=== PATIENT | female | born 1955 | race Caucasian/White ===

== ENCOUNTER 2016-06-14 14:18 | Observation (INO) | payer BC ==
[2016-06-14] MEDS ORDERED: NITROGLYCERIN OINT 1 INCH/GM PACKET TOPICAL STA (15:25)
[2016-06-14] MEDS ORDERED: ASPIRIN 81 MG CHEW PO STA (15:25)
[2016-06-14] MEDS ORDERED: LORazepam 2 MG/ML SYRINGE IV STA (15:27)
--- NOTE | 2016-06-14 15:27 | ED ---
General Adult HPI - General Chief complaint: Chest Pain Stated complaint: abnormal ekg-sent by Time Seen by Provider: 06/14/16 15:00 Source: patient, RN notes reviewed Mode of arrival: wheelchair Limitations: no limitations - History of Present Illness Initial comments: This is a 60-year-old female who has a past medical history significant for high cholesterol anxiety and depression. Patient states for the last 3-4 weeks she's been having intermittent chest pain which feels like a pressure in her chest she states it comes and goes sometimes lasting upwards of 5 or so minutes. Patient states sometimes associated with shortness of breath symptoms is associated with diaphoresis. And this morning she was associating it with nausea. Patient states currently she is chest pain-free. Patient states it is continuing to occur. Patient denies any recent fever chills or cough. Patient denies any smoking history. Patient denies any abdominal pain. Patient denies any vomiting or diarrhea per patient denies any headache patient denies numbness weakness. Patient denies any lightheadedness dizziness or near- syncopal episode. - Related Data Home Medications Medication Instructions Recorded Confirmed Cholecalciferol [Vitamin D3] 2,000 unit PO DAILY 05/19/14 06/14/16 Fish Oil/Dha/Epa [Fish Oil 1,200 1 cap PO HS 05/19/14 06/14/16 mg Fish Oil] L.acid/L.casei/B.bif/B.raphael/Fos 1 cap PO HS 05/19/14 06/14/16 [Probiotic Blend Capsule] Multivitamins, Thera [Multivitamin] 1 tab PO DAILY 05/19/14 06/14/16 Simvastatin [Zocor] 20 mg PO HS 05/19/14 06/14/16 Ubidecarenone [Co Q-10] 100 mg PO DAILY 05/19/14 06/14/16 Dicyclomine [Bentyl] 10 mg PO BID 10/20/14 06/14/16 Omeprazole [PriLOSEC] 20 mg PO QAM 10/20/14 06/14/16 Levothyroxine Sodium [Synthroid] 75 mcg PO DAILY 12/21/15 06/14/16 Vit A,C & E/Lutein/Minerals 1 tab PO HS 12/21/15 06/14/16 [Ocuvite with Lutein Tablet] Glucosamine HCl/Chondr Rhodes A Na 1 tab PO HS 06/14/16 06/14/16 [Osteo Bi-Flex Caplet] Turmeric Root Extract [Turmeric] 500 mg PO HS 06/14/16 06/14/16 buPROPion XL [Wellbutrin Xl] 150 mg PO DAILY 06/14/16 06/14/16 busPIRone HCl [Buspar] 30 mg PO DAILY 06/14/16 06/14/16 Allergies Allergy/AdvReac Type Severity Reaction Status Date / Time ketamine AdvReac Hallucinations Verified 06/14/16 16:17 & Muscle Spasms Review of Systems ROS Statement: Those systems with pertinent positive or pertinent negative responses have been documented in the HPI. ROS Other: All systems not noted in ROS Statement are negative. Past Medical History Past Medical History: GERD/Reflux, Hyperlipidemia, Osteoarthritis (OA), Renal Disease, Skin Disorder, Thyroid Disorder Additional Past Medical History / Comment(s): hx optical migraines, vertigo, hx kidney stones, eczema, dermatitis, IBS, hiatal hernia History of Any Multi-Drug Resistant Organisms: None Reported Past Surgical History: Adenoidectomy, Section, Joint Replacement, Tonsillectomy, Tubal Ligation Additional Past Surgical History / Comment(s): left hip replacement, C-sections x3, D & C Past Anesthesia/Blood Transfusion Reactions: Previous Problems w/ Anesthesia, Motion Sickness Additional Past Anesthesia/Blood Transfusion Reaction / Comment(s): Ketamine caused involuntary muscle movements and hallucinations. Past Psychological History: Anxiety, Depression Additional Psychological History / Comment(s): Pt lives alone in her home. She is independent. She is employed. She drives a car. Smoking Status: Never smoker Past Alcohol Use History: None Reported Past Drug Use History: None Reported - Past Family History Father Family Medical History: Cancer, Hypertension Additional Family Medical History / Comment(s): Father of lung cancer at age 69 yrs. Mother Family Medical History: Hypertension Additional Family Medical History / Comment(s): Mother of complication from myasthenia gravis. She also had diverticulits. General Exam - General Exam Comments Initial Comments: GENERAL: Patient is well-developed and well-nourished. Patient is nontoxic and well- hydrated and is in mild distress. ENT: Neck is soft and supple. No significant lymphadenopathy is noted. Oropharynx is clear. Moist mucous membranes. Neck has full range of motion without eliciting any pain. EYES: The sclera were anicteric and conjunctiva were pink and moist. Extraocular movements were intact and pupils were equal round and reactive to light. Eyelids were unremarkable. PULMONARY: Unlabored respirations. Good breath sounds bilaterally. No audible rales rhonchi or wheezing was noted. CARDIOVASCULAR: There is a regular rate and rhythm without any murmurs gallops or rubs. ABDOMEN: Soft and nontender with normal bowel sounds. No palpable organomegaly was noted. There is no palpable pulsatile mass. SKIN: Skin is clear with no lesions or rashes and otherwise unremarkable. NEUROLOGIC: Patient is alert and oriented x3. Cranial nerves II through XII are grossly intact. Motor and sensory are also intact. Normal speech, volume and content. Symmetrical smile. MUSCULOSKELETAL: Normal extremities with adequate strength and full range of motion. No lower extremity swelling or edema. No calf tenderness. LYMPHATICS: No significant lymphadenopathy is noted PSYCHIATRIC: Normal psychiatric evaluation. Normal interpersonal interactions appears functionally intact in deals appropriately with others. No signs of depression. Patient is mildly anxious Limitations: no limitations Course Vital Signs 06/14/16 06/14/16 14:53 16:04 Temperature 98.1 F Pulse Rate 79 77 Respiratory 18 18 Rate Blood Pressure 118/69 106/65 O2 Sat by Pulse 98 99 Oximetry Medical Decision Making - Medical Decision Making EKG shows a normal sinus rhythm at 74 bpm DE interval 164 QRS is 84 QT interval 42 QT C is 446 patient's EKG shows no ST segment elevation or depression or T- wave abdomen is noted. Chest x-ray shows no acute abnormality. Patient was having intermittent pain for a few weeks with a variety of associated symptoms therefore started the patient on heparin and admitted the patient I wrote admitting orders consult cardiology continue the heparin aspirin and nitro on the floor. - Lab Data Result diagrams: 06/14/16 15:15 06/14/16 15:15 Lab Results 06/14/16 06/14/16 06/14/16 Range/Units 15:15 15:15 15:15 WBC 6.7 (3.8-10.6) k/uL RBC 4.76 (3.80-5.40) m/uL Hgb 15.3 (11.4-16.0) gm/dL Hct 46.2 H (34.0-46.0) % MCV 97.0 (80.0-100.0) fL MCH 32.1 (25.0-35.0) pg MCHC 33.1 (31.0-37.0) g/dL RDW 12.3 (11.5-15.5) % Plt Count 342 (150-450) k/uL Neutrophils % 65 % Lymphocytes % 24 % Monocytes % 8 % Eosinophils % 1 % Basophils % 1 % Neutrophils # 4.4 (1.3-7.7) k/uL Lymphocytes # 1.6 (1.0-4.8) k/uL Monocytes # 0.5 (0-1.0) k/uL Eosinophils # 0.1 (0-0.7) k/uL Basophils # 0.1 (0-0.2) k/uL PT (9.0-12.0) sec INR (<1.1) APTT (22.0-30.0) sec Sodium 143 (137-145) mmol/L Potassium 3.6 (3.5-5.1) mmol/L Chloride 105 (98-107) mmol/L Carbon Dioxide 27 (22-30) mmol/L Anion Gap 11 mmol/L BUN 8 (7-17) mg/dL Creatinine 0.83 (0.52-1.04) mg/dL Est GFR (MDRD) Af Amer >60 (>60 ml/min/1.73 sqM) Est GFR (MDRD) Non-Af >60 (>60 ml/min/1.73 sqM) Glucose 89 (74-99) mg/dL Calcium 9.6 (8.4-10.2) mg/dL Magnesium 2.1 (1.6-2.3) mg/dL Total Bilirubin 0.6 (0.2-1.3) mg/dL AST 26 (14-36) U/L ALT 28 (9-52) U/L Alkaline Phosphatase 52 (38-126) U/L Total Creatine Kinase 84 (30-135) U/L CK-MB (CK-2) 1.0 (0.0-2.4) ng/mL CK-MB (CK-2) Rel Index 1.2 Troponin I <0.012 (0.000-0.034) ng/mL Total Protein 7.2 (6.3-8.2) g/dL Albumin 4.2 (3.5-5.0) g/dL 06/14/16 Range/Units 15:15 WBC (3.8-10.6) k/uL RBC (3.80-5.40) m/uL Hgb (11.4-16.0) gm/dL Hct (34.0-46.0) % MCV (80.0-100.0) fL MCH (25.0-35.0) pg MCHC (31.0-37.0) g/dL RDW (11.5-15.5) % Plt Count (150-450) k/uL Neutrophils % % Lymphocytes % % Monocytes % % Eosinophils % % Basophils % % Neutrophils # (1.3-7.7) k/uL Lymphocytes # (1.0-4.8) k/uL Monocytes # (0-1.0) k/uL Eosinophils # (0-0.7) k/uL Basophils # (0-0.2) k/uL PT 11.0 (9.0-12.0) sec INR 1.1 (<1.1) APTT 25.1 (22.0-30.0) sec Sodium (137-145) mmol/L Potassium (3.5-5.1) mmol/L Chloride (98-107) mmol/L Carbon Dioxide (22-30) mmol/L Anion Gap mmol/L BUN (7-17) mg/dL Creatinine (0.52-1.04) mg/dL Est GFR (MDRD) Af Amer (>60 ml/min/1.73 sqM) Est GFR (MDRD) Non-Af (>60 ml/min/1.73 sqM) Glucose (74-99) mg/dL Calcium (8.4-10.2) mg/dL Magnesium (1.6-2.3) mg/dL Total Bilirubin (0.2-1.3) mg/dL AST (14-36) U/L ALT (9-52) U/L Alkaline Phosphatase (38-126) U/L Total Creatine Kinase (30-135) U/L CK-MB (CK-2) (0.0-2.4) ng/mL CK-MB (CK-2) Rel Index Troponin I (0.000-0.034) ng/mL Total Protein (6.3-8.2) g/dL Albumin (3.5-5.0) g/dL Critical Care Time Critical Care Time: Yes Total Critical Care Time: 35 Disposition Clinical Impression: Unstable angina Disposition: ADMITTED IP TO THIS [facility] Time of Disposition: 16:46
[2016-06-14 15:47] LABS: Basophils # (A) 0.1 k/uL (0-0.2); Basophils % (A) 1 %; CH 32.5; CHCM 33.7; Eosinophils # (A) 0.1 k/uL (0-0.7); Eosinophils % (A) 1 %; HCT 46.2 % (34.0-46.0); HDW 2.13; HGB 15.3 gm/dL (11.4-16.0); Luc # (Auto) 0.17; Luc % (Auto) 3; Lymphocytes # (A) 1.6 k/uL (1.0-4.8); Lymphocytes % (A) 24 %; MCH 32.1 pg (25.0-35.0); MCHC 33.1 g/dL (31.0-37.0); Mean Platelet Volume 6.9; Monocytes # (A) 0.5 k/uL (0-1.0); Monocytes % (A) 8 %; Neutrophils # (A) 4.4 k/uL (1.3-7.7); Neutrophils % (A) 65 %; RBC 4.76 m/uL (3.80-5.40); RDW 12.3 % (11.5-15.5); WBC 6.7 k/uL (3.8-10.6); WBC (Perox) 6.47
[2016-06-14 15:57] LABS: ALT 28 U/L (9-52); AST 26 U/L (14-36); Alkaline Phosphatase 52 U/L (38-126); Anion Gap 11 mmol/L; Blood Urea Nitrogen 8 mg/dL (7-17); Calcium 9.6 mg/dL (8.4-10.2); Carbon Dioxide 27 mmol/L (22-30); Chloride 105 mmol/L (98-107); Glucose 89 mg/dL (74-99); INR 1.1 (<1.1); Magnesium 2.1 mg/dL (1.6-2.3); Non-African American GFR(MDRD) >60 (>60 ml/min/1.73 sqM); Partial Thromboplastin Time 25.1 sec (22.0-30.0); Potassium 3.6 mmol/L (3.5-5.1); Sodium 143 mmol/L (137-145); Total Bilirubin 0.6 mg/dL (0.2-1.3); Total Protein 7.2 g/dL (6.3-8.2)
--- NOTE | 2016-06-14 16:00 | XR ---
EXAMINATION TYPE: XR chest 2V DATE OF EXAM: 06/14/2016 3:56 PM COMPARISON: May 19, 2014 HISTORY: Shortness of breath TECHNIQUE: Frontal and lateral views of the chest are obtained. FINDINGS: Scattered senescent parenchymal changes noted. Hyperinflation compatible with COPD. No evidence for infiltrate. No evidence for atelectasis. Heart size is stable. Mediastinal structures are stable and grossly unremarkable. No evidence for hilar prominence. Degenerative changes dorsal spine. IMPRESSION: 1. No evidence for acute pulmonary disease.
[2016-06-14 16:08] LABS: Creatine Kinase 84 U/L (30-135)
[2016-06-14 16:21] LABS: Troponin I <0.012 ng/mL (0.000-0.034)
[2016-06-14] MEDS ORDERED: NITROGLYCERIN SL TABS 0.4 MG TAB SUBLINGUAL PRN (16:47)
[2016-06-14] MEDS ORDERED: NON-FORMULARY DRUG (Fish Oil/Dha/Epa [Fish Oil 1,200 Mg Fish Oil] 1 CAP) PO SCH (21:00)
[2016-06-14] MEDS ORDERED: VIT A,C & E-LUTEIN-MINERALS 1 EACH TAB PO SCH (21:00)
[2016-06-14] MEDS ORDERED: NON-FORMULARY DRUG (Turmeric Root Extract [Turmeric] 500 MG) PO SCH (21:00)
[2016-06-14] MEDS ORDERED: ATORVASTATIN 10 MG TAB PO SCH (21:00)
[2016-06-14] MEDS ORDERED: LACTOBACILLUS ACIDOPH & BULGAR 1 EACH PACKET PO SCH (21:00)
[2016-06-14] MEDS ORDERED: NON-FORMULARY DRUG (Glucosamine Hcl/Chondr Su A Na [Osteo Bi-Flex Caplet] 1 TAB) PO SCH (21:00)
[2016-06-14] MEDS: NITROGLYCERIN OINT 1 INCH/GM PACKET TOPICAL SCH (21:21)
[2016-06-14] MEDS: DICYCLOMINE 10 MG CAP PO SCH (21:25)
[2016-06-14 21:55] LABS: Creatine Kinase 75 U/L (30-135)
[2016-06-14 22:08] LABS: Creatine Kinase MB 0.8 ng/mL (0.0-2.4); Troponin I <0.012 ng/mL (0.000-0.034)
[2016-06-15] MEDS: NITROGLYCERIN OINT 1 INCH/GM PACKET TOPICAL SCH ×2 (00:04→06:26)
[2016-06-15 03:33] LABS: Cholesterol 130 mg/dL (<200); HDL Cholesterol 69 mg/dL (40-60); Triglycerides 46 mg/dL (<150)
[2016-06-15 03:37] LABS: Creatine Kinase 58 U/L (30-135)
[2016-06-15 03:51] LABS: Creatine Kinase MB 0.6 ng/mL (0.0-2.4); Troponin I <0.012 ng/mL (0.000-0.034)
[2016-06-15] MEDS: ACETAMINOPHEN TAB 325 MG TAB PO PRN ×2 (04:22→09:20)
[2016-06-15] MEDS ORDERED: LEVOTHYROXINE 75 MCG TAB PO SCH (06:00)
[2016-06-15] MEDS ORDERED: PANTOPRAZOLE 40 MG TABLET PO SCH (07:30)
--- NOTE | 2016-06-15 08:54 | CONS ---
DATE OF CONSULTATION: Mrs. Daniels is a 60-year-old female with known history of hyperlipidemia, who presented with symptoms of chest discomfort. She has been having the discomfort on and off for a few weeks, not related to physical activity. At times lasting for a few seconds. She feels mildly dyspneic. She has no arrhythmia. No dizziness. No syncope. No PND, orthopnea, or peripheral edema. She has no prior documented history of ischemic heart disease. She was in the hospital in May of 2014. At that time, had a myocardial perfusion imaging that revealed no evidence of inducible ischemia. Her coronary risk factors are negative for hypertension, diabetes or smoking. She has hyperlipidemia. Her medications at home include Buspirone, Wellbutrin, Coenzyme Q10, simvastatin 20 mg daily, Prilosec, Synthroid, Osteo Bi-Flex, fish oil, Ventolin, vitamin D. REVIEW OF SYSTEMS: RESPIRATORY SYSTEM: She has no recent wheezing. No cough. No history of documented obstructive lung disease. GI SYSTEM: No recent GI bleeding. No peptic ulcer disease. SYSTEM: No dysuria or hematuria. NERVOUS SYSTEM: No stroke or seizure. PHYSICAL EXAMINATION: A 60-year-old female, alert, oriented, in no apparent distress. Blood pressure 105/60 with a heart rate in the 70s. HEAD: Normocephalic. EYES: Sclerae nonicteric. NECK: Good upstroke. No bruit. No jugular venous distention. LUNGS: Clear to auscultation. HEART: Regular rate and rhythm. S1, S2, no S3, no S4, no murmur or rub. ABDOMEN: Soft, nontender, positive bowel sounds. No organomegaly. EXTREMITIES: No edema. Intact distal pulses. LAB DATA: Troponin less than 0.012. Cholesterol 130, LDL of 52, BUN and creatinine 8 and 0.83 and hemoglobin 15.3. EKG revealed sinus mechanism, normal axis and intervals. Normal electrocardiogram. Chest x-ray shows no evidence of infiltrate. IMPRESSION: 1. Chest discomfort, has atypical feature for ischemic heart disease, probably noncardiac in etiology. 2. History of hyperlipidemia. RECOMMENDATION: I would recommend to proceed with a stress echocardiogram. If there is no evidence of inducible ischemia, then no further cardiac work-up will be needed. I have discussed those findings with the patient. Thank you for this consult. Will follow with you.
[2016-06-15] MEDS ORDERED: busPIRone HCl 10 MG TAB PO SCH (09:00)
[2016-06-15] MEDS ORDERED: NON-FORMULARY DRUG (Ubidecarenone [Co Q-10] 100 MG) PO SCH (09:00)
[2016-06-15] MEDS ORDERED: ASPIRIN 325 MG TAB PO SCH (09:00)
[2016-06-15] MEDS ORDERED: buPROPion XL 150 MG TAB.ER.24H PO SCH (09:00)
[2016-06-15] MEDS: DICYCLOMINE 10 MG CAP PO SCH (09:19)
--- NOTE | 2016-06-15 11:39 | ECHOF ---
Referral Reason: MEASUREMENTS -------- HEIGHT: 172.7 cm WEIGHT: 86.2 kg BP: 98/58 RVIDd: 2.9 cm (< 3.3) IVSd: 0.9 cm (0.6 - 1.1) LVIDd: 4.2 cm (3.9 - 5.3) LVPWd: 0.8 cm (0.6 - 1.1) IVSs: 1.4 cm LVIDs: 3.0 cm LVPWs: 1.5 cm LA Diam: 3.1 cm (2.7 - 3.8) LAESV Index (A-L): 23.03 ml/m Ao Diam: 2.8 cm (2.0 - 3.7) AV Cusp: 2.2 cm (1.5 - 2.6) MV EXCURSION: 15.488 mm (> 18.000) MV EF SLOPE: 95 mm/s (70 - 150) EPSS: 0.4 cm MV E Ga: 0.72 m/s MV DecT: 225 ms MV A Ga: 0.71 m/s MV E/A Ratio: 1.02 RAP: 5.00 mmHg RVSP: 21.56 mmHg FINDINGS -------- Sinus rhythm. This was a technically good study. The left ventricular size is normal. Left ventricular wall thickness is normal. Overall left ventricular systolic function is normal with, an EF between 60 - 65 %. The right ventricle is normal in size and function. Normal LA size by volume 22+/-6 ml/m2. The right atrium is normal in size. The aortic valve is trileaflet and appears structurally normal. Trace amount of aortic regurgitation. Normal appearing mitral valve. Mild tricuspid regurgitation present. Right ventricular systolic pressure is normal at < 35 mmHg. Trace/mild (physiologic) pulmonic regurgitation. The aortic root size is normal. Normal inferior vena cava with normal inspiratory collapse consistent with estimated right atrial pressure of 5 mmHg. There is no pericardial effusion. CONCLUSIONS -------- 1. Sinus rhythm. 2. Trace amount of aortic regurgitation. 3. Normal appearing mitral valve. 4. Mild tricuspid regurgitation present. 5. Right ventricular systolic pressure is normal at < 35 mmHg. 6. Trace/mild (physiologic) pulmonic regurgitation. 7. The aortic root size is normal. 8. Normal inferior vena cava with normal inspiratory collapse consistent with estimated right atrial pressure of 5 mmHg. 9. There is no pericardial effusion. 10. This was a technically good study. 11. The left ventricular size is normal. 12. Left ventricular wall thickness is normal. 13. Overall left ventricular systolic function is normal with, an EF between 60 - 65 %. 14. The right ventricle is normal in size and function. 15. Normal LA size by volume 22+/-6 ml/m2. 16. The right atrium is normal in size. 17. The aortic valve is trileaflet and appears structurally normal. SCHOOL CLERK: Shwetha Hill RDCS
--- NOTE | 2016-06-15 11:56 | P.HPIM ---
History of Present Illness H&P Date: 06/15/16 Chief Complaint: Chest pain This is a 60-year-old female with a known history of anxiety, hypothyroidism, hyperlipidemia and GERD. She presents to the emergency room with complaints of chest pain. Patient reports that she has been having intermittent chest pain over the last 3 or 4 weeks. Pain lasts for about 5 minutes. It's in the center of her chest. She is also having a whooshing sensation in her ear on the left side when she has the pain. She denies any nausea or vomiting. Denies any diaphoresis. Denies any shortness of breath. Denies any cough, fever, chills or sweats. She's been having regular bowel movements. Denies any difficulty urinating. Last stress test was about 3 years ago and was negative. She had a previous workup for chest pain recently and was told it was likely her anxiety. She follows with her PCP as well as a psychiatrist. Her anxiety and depression medications were recently adjusted and Letitia. EKG shows normal sinus rhythm. Troponins are negative 3. Chest x-rays negative. Patient has been admitted to the observation unit. Cardiology has been consulted and they've ordered a stress echo. Review of Systems Please refer to HPI otherwise unremarkable Past Medical History Past Medical History: GERD/Reflux, Hyperlipidemia, Osteoarthritis (OA), Renal Disease, Skin Disorder, Thyroid Disorder Additional Past Medical History / Comment(s): hx optical migraines, vertigo, hx kidney stones, eczema, dermatitis, IBS, hiatal hernia,when chhild ear infections burst ear drum (lt) LACTOSE INTOLERNANT History of Any Multi-Drug Resistant Organisms: None Reported Past Surgical History: Adenoidectomy, Section, Joint Replacement, Tonsillectomy, Tubal Ligation Additional Past Surgical History / Comment(s): left hip replacement, C-sections x3, D & C Past Anesthesia/Blood Transfusion Reactions: Previous Problems w/ Anesthesia, Motion Sickness Additional Past Anesthesia/Blood Transfusion Reaction / Comment(s): Ketamine caused involuntary muscle movements and hallucinations. Past Psychological History: Anxiety, Depression Additional Psychological History / Comment(s): Pt lives alone in apt, has 2 porch steps, 1 step into building and 8 steps up to apt. She is independent-no assitive devices used.. She is employed as a behavioral healkth clinician. She drives a car. hax of depression feels well maintained on her medications. Smoking Status: Never smoker Past Alcohol Use History: None Reported Past Drug Use History: None Reported - Past Family History Father Family Medical History: Cancer, Hypertension Additional Family Medical History / Comment(s): Father of lung cancer at age 69 yrs. Mother Family Medical History: Hypertension Additional Family Medical History / Comment(s): Mother of complication from myasthenia gravis. She also had diverticulits. Medications and Allergies Home Medications Medication Instructions Recorded Confirmed Type Cholecalciferol [Vitamin D3] 2,000 unit PO DAILY 05/19/14 06/14/16 History Fish Oil/Dha/Epa [Fish Oil 1,200 1 cap PO HS 05/19/14 06/14/16 History mg Fish Oil] L.acid/L.casei/B.bif/B.raphael/Fos 1 cap PO HS 05/19/14 06/14/16 History [Probiotic Blend Capsule] Multivitamins, Thera [Multivitamin] 1 tab PO DAILY 05/19/14 06/14/16 History Simvastatin [Zocor] 20 mg PO HS 05/19/14 06/14/16 History Ubidecarenone [Co Q-10] 100 mg PO DAILY 05/19/14 06/14/16 History Dicyclomine [Bentyl] 10 mg PO BID 10/20/14 06/14/16 History Omeprazole [PriLOSEC] 20 mg PO QAM 10/20/14 06/14/16 History Levothyroxine Sodium [Synthroid] 75 mcg PO DAILY 12/21/15 06/14/16 History Vit A,C & E/Lutein/Minerals 1 tab PO HS 12/21/15 06/14/16 History [Ocuvite with Lutein Tablet] Glucosamine HCl/Chondr Rhodes A Na 1 tab PO HS 06/14/16 06/14/16 History [Osteo Bi-Flex Caplet] Turmeric Root Extract [Turmeric] 500 mg PO HS 06/14/16 06/14/16 History buPROPion XL [Wellbutrin Xl] 150 mg PO DAILY 06/14/16 06/14/16 History busPIRone HCl [Buspar] 30 mg PO DAILY 06/14/16 06/14/16 History Allergies Allergy/AdvReac Type Severity Reaction Status Date / Time ketamine AdvReac Hallucinations Verified 06/14/16 16:17 & Muscle Spasms lactose AdvReac Unknown Verified 06/14/16 20:17 Physical Exam Vitals: Vital Signs Temp Pulse Pulse Pulse Resp BP BP 06/15/16 08:00 98.1 F 96 16 118/65 06/15/16 04:00 98 F 72 72 16 98/58 06/15/16 00:00 97.6 F 61 72 16 105/62 06/14/16 21:12 72 16 06/14/16 20:09 98.6 F 72 16 124/83 06/14/16 17:45 97.7 F 87 18 121/76 06/14/16 17:18 97.9 F 06/14/16 17:13 83 16 109/65 Pulse Ox 06/15/16 08:00 96 06/15/16 04:00 94 L 06/15/16 00:00 95 06/14/16 21:12 06/14/16 20:09 98 06/14/16 17:45 98 06/14/16 17:18 06/14/16 17:13 100 Intake and Output 06/14/16 06/15/16 06/15/16 22:59 06:59 14:59 Intake Total 250 200 Balance 250 200 Intake: Oral 250 200 Other: Voiding Method Toilet Toilet # Voids 2 3 Weight 86.3 kg Head normocephalic Neck supple Lungs clear to auscultation bilaterally no wheezing or crackles Heart regular rate and rhythm S1-S2, no rub or gallop Abdomen is soft nontender nondistended positive bowel sounds no hepatosplenomegaly Extremities no edema Neuro alert and orientated to 3 Results CBC & Chem 7: 06/14/16 15:15 06/14/16 15:15 Labs: Abnormal Lab Results - Last 24 Hours (Table) 06/15/16 Range/Units 02:53 HDL Cholesterol 69 H (40-60) mg/dL Thrombosis Risk Factor Assmnt - Choose All That Apply Any of the Below Risk Factors Present?: Yes Each Factor Represents 1 point: Age 41-60 years, Obesity (BMI >25) Other Risk Factors: No Other congenital or acquired thrombophilia - If yes, enter type in comment: No Thrombosis Risk Factor Assessment Total Risk Factor Score: 2 Thrombosis Risk Factor Assessment Level: Low Risk Assessment and Plan Plan: 1. Chest pain: SD ruled out. Troponins are negative 3 sets. EKG showing normal sinus rhythm. Chest x-rays negative. Patient is followed by cardiology and stress echo was ordered. Awaiting results. Echo shows an EF of 60-65%. Trace amount of aortic regurg, mild tricuspid regurgitation 2. Hyperlipidemia continue Lipitor 3. Hypothyroidism continue Synthroid 4. Generalized anxiety disorder and depression continue the Wellbutrin GI prophylaxis Protonix and DVT prophylaxis subcu heparin Time with Patient: Greater than 30 (Greater than 50% of the total time spent in counseling and coordination of care.I performed an examination of the patient and discussed their management with the physician Costumer Assistant. I have reviewed the Physician Costumer Assistant's notes and agree with the documented findings and plan of care)
[2016-06-15] MEDS ORDERED: CHOLECALCIFEROL 1,000 UNIT TAB PO SCH (12:00)
[2016-06-15] MEDS ORDERED: MULTIVITAMINS, THERA 1 EACH TAB PO SCH (12:00)
[2016-06-15 12:33] VITALS: BP 105/59; PULSE 83; RESP 18; TEMP 97.7
--- NOTE | 2016-06-15 12:47 | ECHOS ---
DATE OF SERVICE: 06/15/2016 AGE: 60Y SEX: F HT: 68" WT: 190 lbs. Protocol Agustín: X Others: Stress Echo Stage: III Dur. of Exercise: 6:30 *Heart Rate Blood Pressure *Rest: 79 Rest: 142/68 * *Max. Achieved: 145 Maximum BP: 140/65 85% PMHR: 136 100% PMHR: 160 *METS: 7.6 INDICATIONS: Chest pain. MEDICATIONS: Patient was exercised for a total period of 6 minutes and 30 seconds. Peak heart rate of 145 was achieved. Maximum blood pressure 140/65 mmHg is noted. Resting EKG shows normal sinus rhythm with normal RI interval and QRS duration and normal ST-T waves. No ST segment depression suggestive of ischemia is noted. The baseline echocardiographic images reveals a normal left ventricular chamber size with normal left ventricular systolic function. In the immediate postexercise period, normal increase in the wall thickness and contractility is noted. FINAL IMPRESSION: This stress echocardiographic study is negative for stress-induced ischemia. EKG portion of the stress test is not suggestive of ischemia. Patient's exercise tolerance is average.
--- NOTE | 2016-06-15 13:56 | P.DS ---
Providers Date of admission: 06/14/16 16:47 Expected date of discharge: 06/15/16 Attending physician: Ofelia Fountain Consults: Dr. Hartman Primary care physician: Ai Sabillon [facility] Course: Discharge diagnosis 1. Chest pain: MN ruled out. Troponins are negative 3 sets. EKG showing normal sinus rhythm. Chest x-rays negative. Patient is followed by cardiology and stress echo was ordered. Awaiting results. Echo shows an EF of 60-65%. Trace amount of aortic regurg, mild tricuspid regurgitation. Stress echo results were negative for any stress-induced ischemia 2. Hyperlipidemia continue Lipitor 3. Hypothyroidism continue Synthroid 4. Generalized anxiety disorder and depression continue the [facility] course This is a 60-year-old female with a known history of anxiety, hypothyroidism, hyperlipidemia and GERD. She presents to the emergency room with complaints of chest pain. Patient reports that she has been having intermittent chest pain over the last 3 or 4 weeks. Pain lasts for about 5 minutes. It's in the center of her chest. She is also having a whooshing sensation in her ear on the left side when she has the pain. She denies any nausea or vomiting. Denies any diaphoresis. Denies any shortness of breath. Denies any cough, fever, chills or sweats. She's been having regular bowel movements. Denies any difficulty urinating. Last stress test was about 3 years ago and was negative. She had a previous workup for chest pain recently and was told it was likely her anxiety. She follows with her PCP as well as a psychiatrist. Her anxiety and depression medications were recently adjusted and April. EKG shows normal sinus rhythm. Troponins are negative 3. Chest x-rays negative. Patient has been admitted to the observation unit. Patient seen evaluated by cardiology. Stress echo completed. Study was negative for any stress-induced ischemia. EKG portion of stress test is not suggestive of ischemia. Patient's symptoms have shown improvement. She is medically stable for discharge. And she has been cleared by cardiology for discharge. We'll have her follow-up with her PCP in 1 week. Patient Condition at Discharge: Stable Plan - Discharge Summary Discharge Medication List Cholecalciferol [Vitamin D3] 2,000 unit PO DAILY 05/19/14 [History] Fish Oil/Dha/Epa [Fish Oil 1,200 mg Fish Oil] 1 cap PO HS 05/19/14 [History] L.acid/L.casei/B.bif/B.raphael/Fos [Probiotic Blend Capsule] 1 cap PO HS 05/19/14 [ History] Multivitamins, Thera [Multivitamin] 1 tab PO DAILY 05/19/14 [History] Simvastatin [Zocor] 20 mg PO HS 05/19/14 [History] Ubidecarenone [Co Q-10] 100 mg PO DAILY 05/19/14 [History] Dicyclomine [Bentyl] 10 mg PO BID 10/20/14 [History] Omeprazole [PriLOSEC] 20 mg PO QAM 10/20/14 [History] Levothyroxine Sodium [Synthroid] 75 mcg PO DAILY 12/21/15 [History] Vit A,C & E/Lutein/Minerals [Ocuvite with Lutein Tablet] 1 tab PO HS 12/21/15 [ History] Glucosamine HCl/Chondr Rhodes A Na [Osteo Bi-Flex Caplet] 1 tab PO HS 06/14/16 [ History] Turmeric Root Extract [Turmeric] 500 mg PO HS 06/14/16 [History] buPROPion XL [Wellbutrin XL] 150 mg PO DAILY 06/14/16 [History] busPIRone HCl [Buspar] 30 mg PO DAILY 06/14/16 [History] Follow up Appointment(s)/Referral(s): Ai Sabillon DO [Primary Care Provider] - 1 Week Activity/Diet/Wound Care/Special Instructions: Diet: regular Activity: as tolerated Discharge Disposition: HOME SELF-CARE
[2016-06-15] MEDS ORDERED: HEPARIN SODIUM,PORCINE 5,000 UNIT/ML 1 ML VIAL SQ SCH (21:00)
== END 2016-06-15 14:29 | disposition home or self-care (01) ==
LOC: EC 14:18 → 3OBS 16:47
PROVIDERS: ADMIT Internal Medicine; ATTEND Internal Medicine
DX: R07.9 Chest pain, unspecified (principal); E03.9 Hypothyroidism, unspecified; E78.00 Pure hypercholesterolemia, unspecified; E78.5 Hyperlipidemia, unspecified; F32.9 Major depressive disorder, single episode, unspecified; F41.1 Generalized anxiety disorder; K21.9 Gastro-esophageal reflux disease without esophagitis; K58.9 Irritable bowel syndrome, unspecified; Z82.49 Family history of ischemic heart disease and other diseases of the circulatory system; R94.31 Abnormal electrocardiogram [ECG] [EKG]; R61 Generalized hyperhidrosis; R06.02 Shortness of breath; R11.0 Nausea; M19.90 Unspecified osteoarthritis, unspecified site; Z79.899 Other long term (current) drug therapy; Z88.8 Allergy status to other drugs, medicaments and biological substances
CPT/HCPCS: 99291 ×2; 96374 ×2; 36415; 93005; 93350; 93017; 93306; 80061; 80053; 82550 ×2; 82553 ×2; 83735; 84484 ×2; 85025; 85610; 85730; 71020; G0378 ×2; J2060; Q9957

== ENCOUNTER → 2016-11-24 | Outpatient (CLI) | payer BC ==
--- NOTE | 2016-11-27 10:47 | MM ---
Reason for exam: screening (asymptomatic). Last mammogram was performed 1 year and 1 month ago. History: Patient is postmenopausal. Took hormonal contraceptives for 6 years beginning at age 18. Physical Findings: A clinical breast exam by your physician is recommended on an annual basis and results should be correlated with mammographic findings. MG Screening Mammo w CAD Bilateral CC and MLO view(s) were taken. Prior study comparison: November 04, 2015, bilateral MG screening mammo w CAD. October 29, 2014, bilateral MG screening mammo w CAD. There are scattered fibroglandular densities. Focal asymmetry. 6mm fibroadenoma in upper outer left breast at middle depth, 5-6cm from nipple. ASSESSMENT: Incomplete: need additional imaging evaluation, BI-RAD 0 RECOMMENDATION: Special view mammogram of the left breast. If lesion persists on supplemental views, image directed ultrasound is recommended. [facility] will attempt to contact patient to return for supplemental views and ultrasound if indicated.
== END | disposition home or self-care (01) ==
LOC: RADMAMWWP 08:55
PROVIDERS: ATTEND Family Medicine
DX: Z12.31 Encounter for screening mammogram for malignant neoplasm of breast (principal); R92.2 Inconclusive mammogram

== ENCOUNTER 2016-11-29 15:19 | Observation (INO) | payer BC ==
[2016-11-29] MEDS ORDERED: SODIUM CHLORIDE 0.9% 1,000 ML IV STA (16:49)
--- NOTE | 2016-11-29 16:53 | ED ---
General Adult HPI - General Chief complaint: Shortness of Breath Stated complaint: SOB/Chest Pain/Sounds in head Time Seen by Provider: 11/29/16 16:40 Source: patient, RN notes reviewed Mode of arrival: wheelchair Limitations: no limitations - History of Present Illness Initial comments: Patient 61-year-old female who presents emergency room today with chief complaint of feeling increased short of breath. She states that symptoms started around lunchtime. She states that she's notice more of a headache on the left side today. She states that she's felt a little "off". She states that she was just at home watching her grandkids not doing anything specific for the symptoms seem to get worse. She states that she's tried to think she's had some increased tinnitus today in the left ear. She states she's had this over the last 5 weeks but they have not found a cause. She states she was supposed to have an MRI. Patient admits that she was at home when the symptoms seem to get worse around 4-5 hours ago. She states she does feel some heaviness to her chest and feeling somewhat short of breath. Patient denies any other complaints or symptoms at this time. Patient denies any recent fever, chills, back pain, abdominal pain, nausea or vomiting, numbness or tingling, dysuria or hematuria, constipation or diarrhea, visual changes, or any other complaints. - Related Data Home Medications Medication Instructions Recorded Confirmed Fish Oil/Dha/Epa [Fish Oil 1,200 1 cap PO HS 05/19/14 11/29/16 mg Fish Oil] L.acid/L.casei/B.bif/B.raphael/Fos 1 cap PO HS 05/19/14 11/29/16 [Probiotic Blend Capsule] Multivitamins, Thera [Multivitamin 1 tab PO QAM 05/19/14 11/29/16 (formulary)] Simvastatin [Zocor] 20 mg PO HS 05/19/14 11/29/16 Ubidecarenone [Co Q-10] 100 mg PO QAM 05/19/14 11/29/16 Dicyclomine [Bentyl] 10 mg PO BID PRN 10/20/14 11/29/16 Omeprazole [PriLOSEC] 20 mg PO DAILY PRN 10/20/14 11/29/16 Levothyroxine Sodium [Synthroid] 75 mcg PO QAM 12/21/15 11/29/16 Vits A,C,E/Lutein/Minerals 1 tab PO HS 12/21/15 11/29/16 [Ocuvite with Lutein Tablet] Glucosamine/Chondr Rhodes A Sod [Osteo 1 tab PO HS 06/14/16 11/29/16 Bi-Flex Caplet] Turmeric Root Extract [Turmeric] 500 mg PO HS 06/14/16 11/29/16 buPROPion XL [Wellbutrin XL] 150 mg PO QAM 06/14/16 11/29/16 ALPRAZolam [Xanax] 0.25 mg PO DAILY PRN 11/29/16 11/29/16 Baclofen [Lioresal] 20 mg PO BID PRN 11/29/16 11/29/16 Cholecalciferol (Vitamin D3) 2,000 unit PO QAM 11/29/16 11/29/16 [Vitamin D3] predniSONE See Taper PO DAILY 11/29/16 11/29/16 Allergies Allergy/AdvReac Type Severity Reaction Status Date / Time buspirone [From BuSpar] AdvReac Increased Verified 11/29/16 17:32 Anxiety clonazepam [From Klonopin] AdvReac Hallucinati Verified 11/29/16 17:32 ons ketamine AdvReac Hallucinations Verified 11/29/16 17:32 & Muscle Spasms lactose AdvReac Intolerant Verified 11/29/16 17:32 Review of Systems ROS Statement: Those systems with pertinent positive or pertinent negative responses have been documented in the HPI. ROS Other: All systems not noted in ROS Statement are negative. Past Medical History Past Medical History: GERD/Reflux, Hyperlipidemia, Osteoarthritis (OA), Renal Disease, Skin Disorder, Thyroid Disorder Additional Past Medical History / Comment(s): hx optical migraines, vertigo, hx kidney stones, eczema, dermatitis, IBS, hiatal hernia,when chhild ear infections burst ear drum (lt) LACTOSE INTOLERNANT, tinnitus History of Any Multi-Drug Resistant Organisms: None Reported Past Surgical History: Adenoidectomy, Section, Joint Replacement, Tonsillectomy, Tubal Ligation Additional Past Surgical History / Comment(s): left hip replacement, C-sections x3, D & C Past Anesthesia/Blood Transfusion Reactions: Previous Problems w/ Anesthesia, Motion Sickness Additional Past Anesthesia/Blood Transfusion Reaction / Comment(s): Ketamine caused involuntary muscle movements and hallucinations. Past Psychological History: Anxiety, Depression Smoking Status: Never smoker Past Alcohol Use History: None Reported Past Drug Use History: None Reported - Past Family History Father Family Medical History: Cancer, Hypertension Additional Family Medical History / Comment(s): Father of lung cancer at age 69 yrs. Mother Family Medical History: Hypertension Additional Family Medical History / Comment(s): Mother of complication from myasthenia gravis. She also had diverticulits. General Exam - General Exam Comments Initial Comments: General: The patient is awake and alert, in no distress, and does not appear acutely ill. Eye: Pupils are equal, round and reactive to light, extra-ocular movements are intact. No nystagmus. There is normal conjunctiva bilaterally. No signs of icterus. Ears, nose, mouth and throat: There are moist mucous membranes and no oral lesions. Neck: The neck is supple, there is no tenderness or JVD. Cardiovascular: There is a regular rate and rhythm. No murmur, rub or gallop is appreciated. Respiratory: Lungs are clear to auscultation, respirations are non-labored, breath sounds are equal. No wheezes, stridor, rales, or rhonchi. Gastrointestinal: Soft, non-distended, non-tender abdomen without masses or organomegaly noted. There is no rebound or guarding present. No CVA tenderness. Bowel sounds are unremarkable. Musculoskeletal: Normal ROM, no tenderness. Strength 5/5. Sensation intact. Pulses equal bilaterally 2+. Neurological: A&O x 3. CN II-XII intact, There are no obvious motor or sensory deficits. Coordination appears grossly intact. Speech is normal. Skin: Skin is warm and dry and no rashes or lesions are noted. Psychiatric: Cooperative, appropriate mood & affect, normal judgment. Limitations: no limitations Course Vital Signs 11/29/16 11/29/16 11/29/16 15:22 16:54 18:00 Temperature 98.8 F Pulse Rate 103 H 93 78 Respiratory 18 18 20 Rate Blood Pressure 132/72 127/80 O2 Sat by Pulse 97 96 96 Oximetry EKG Findings - EKG Comments: EKG Findings:: EKG performed at 1539. A 12-lead EKG was performed and interpreted by me as showing the following: Rate is 91, and rhythm is normal sinus. There are normal QRS complexes and normal R-wave progression. ST segments have no elevation or depression, and FL segments appear normal. Medical Decision Making - Medical Decision Making Case discussed in detail with attending physician Dr. Sellers. Patient reexamined at this time shows no signs of distress resting comfortably. Patient CT negative. Chest x-ray negative. Labs been reviewed. She will be admitted Serial enzymes she admits to chest heaviness and shortness of breath that started approximately 4 hours ago. Patient is aware the plan states understanding. - Lab Data Result diagrams: 11/29/16 16:54 11/29/16 16:45 Lab Results 11/29/16 11/29/16 11/29/16 Range/Units 16:45 16:45 16:45 WBC (3.8-10.6) k/uL RBC (3.80-5.40) m/uL Hgb (11.4-16.0) gm/dL Hct (34.0-46.0) % MCV (80.0-100.0) fL MCH (25.0-35.0) pg MCHC (31.0-37.0) g/dL RDW (11.5-15.5) % Plt Count (150-450) k/uL Neutrophils % % Lymphocytes % % Monocytes % % Eosinophils % % Basophils % % Neutrophils # (1.3-7.7) k/uL Lymphocytes # (1.0-4.8) k/uL Monocytes # (0-1.0) k/uL Eosinophils # (0-0.7) k/uL Basophils # (0-0.2) k/uL PT 10.1 (9.0-12.0) sec INR 1.0 (<1.2) APTT 23.9 (22.0-30.0) sec D-Dimer 0.28 (<0.60) mg/L FEU Sodium 143 (137-145) mmol/L Potassium 4.0 (3.5-5.1) mmol/L Chloride 108 H (98-107) mmol/L Carbon Dioxide 23 (22-30) mmol/L Anion Gap 12 mmol/L BUN 19 H (7-17) mg/dL Creatinine 0.90 (0.52-1.04) mg/dL Est GFR (MDRD) Af Amer >60 (>60 ml/min/1.73 sqM) Est GFR (MDRD) Non-Af >60 (>60 ml/min/1.73 sqM) Glucose 109 H (74-99) mg/dL Calcium 9.9 (8.4-10.2) mg/dL Magnesium 2.1 (1.6-2.3) mg/dL Total Bilirubin 0.4 (0.2-1.3) mg/dL AST 30 (14-36) U/L ALT 42 (9-52) U/L Alkaline Phosphatase 67 (38-126) U/L Total Creatine Kinase 156 H (30-135) U/L CK-MB (CK-2) 2.5 H* (0.0-2.4) ng/mL CK-MB (CK-2) Rel Index 1.6 Troponin I <0.012 (0.000-0.034) ng/mL NT-Pro-B Natriuret Pep pg/mL Total Protein 7.3 (6.3-8.2) g/dL Albumin 4.7 (3.5-5.0) g/dL 11/29/16 11/29/16 Range/Units 16:45 16:54 WBC 10.1 (3.8-10.6) k/uL RBC 4.62 (3.80-5.40) m/uL Hgb 15.0 (11.4-16.0) gm/dL Hct 44.0 (34.0-46.0) % MCV 95.3 (80.0-100.0) fL MCH 32.5 (25.0-35.0) pg MCHC 34.1 (31.0-37.0) g/dL RDW 12.1 (11.5-15.5) % Plt Count 385 (150-450) k/uL Neutrophils % 88 % Lymphocytes % 8 % Monocytes % 4 % Eosinophils % 0 % Basophils % 0 % Neutrophils # 8.8 H (1.3-7.7) k/uL Lymphocytes # 0.8 L (1.0-4.8) k/uL Monocytes # 0.4 (0-1.0) k/uL Eosinophils # 0.0 (0-0.7) k/uL Basophils # 0.0 (0-0.2) k/uL PT (9.0-12.0) sec INR (<1.2) APTT (22.0-30.0) sec D-Dimer (<0.60) mg/L FEU Sodium (137-145) mmol/L Potassium (3.5-5.1) mmol/L Chloride (98-107) mmol/L Carbon Dioxide (22-30) mmol/L Anion Gap mmol/L BUN (7-17) mg/dL Creatinine (0.52-1.04) mg/dL Est GFR (MDRD) Af Amer (>60 ml/min/1.73 sqM) Est GFR (MDRD) Non-Af (>60 ml/min/1.73 sqM) Glucose (74-99) mg/dL Calcium (8.4-10.2) mg/dL Magnesium (1.6-2.3) mg/dL Total Bilirubin (0.2-1.3) mg/dL AST (14-36) U/L ALT (9-52) U/L Alkaline Phosphatase (38-126) U/L Total Creatine Kinase (30-135) U/L CK-MB (CK-2) (0.0-2.4) ng/mL CK-MB (CK-2) Rel Index Troponin I (0.000-0.034) ng/mL NT-Pro-B Natriuret Pep 128 pg/mL Total Protein (6.3-8.2) g/dL Albumin (3.5-5.0) g/dL Disposition Clinical Impression: Chest pain Disposition: ADMITTED IP TO THIS HOSP Condition: Good Referrals: Ai Sabillon DO [Primary Care Provider] - 1-2 days Time of Disposition: 18:04
[2016-11-29 17:00] LABS: Basophils % (A) 0 %; CH 32.4; CHCM 34.1; Eosinophils % (A) 0 %; HDW 2.17; Luc # (Auto) 0.05; Luc % (Auto) 1; Lymphocytes # (A) 0.8 k/uL (1.0-4.8); Lymphocytes % (A) 8 %; MCH 32.5 pg (25.0-35.0); MCHC 34.1 g/dL (31.0-37.0); MCV 95.3 fL (80.0-100.0); Mean Platelet Volume 6.3; Monocytes # (A) 0.4 k/uL (0-1.0); Monocytes % (A) 4 %; Neutrophils # (A) 8.8 k/uL (1.3-7.7); Neutrophils % (A) 88 %; RBC 4.62 m/uL (3.80-5.40); RDW 12.1 % (11.5-15.5); WBC 10.1 k/uL (3.8-10.6); WBC (Perox) 10.17
[2016-11-29 17:10] LABS: ALT 42 U/L (9-52); AST 30 U/L (14-36); Alkaline Phosphatase 67 U/L (38-126); Anion Gap 12 mmol/L; Blood Urea Nitrogen 19 mg/dL (7-17); Calcium 9.9 mg/dL (8.4-10.2); Carbon Dioxide 23 mmol/L (22-30); Chloride 108 mmol/L (98-107); Glucose 109 mg/dL (74-99); Magnesium 2.1 mg/dL (1.6-2.3); Non-African American GFR(MDRD) >60 (>60 ml/min/1.73 sqM); Sodium 143 mmol/L (137-145); Total Bilirubin 0.4 mg/dL (0.2-1.3); Total Protein 7.3 g/dL (6.3-8.2)
[2016-11-29 17:14] LABS: Creatine Kinase 156 U/L (30-135)
[2016-11-29 17:16] LABS: Partial Thromboplastin Time 23.9 sec (22.0-30.0); Prothrombin Time 10.1 sec (9.0-12.0)
[2016-11-29 17:27] LABS: Troponin I <0.012 ng/mL (0.000-0.034)
[2016-11-29 17:28] LABS: Creatine Kinase MB 2.5 ng/mL (0.0-2.4)
--- NOTE | 2016-11-29 17:52 | CT ---
EXAMINATION TYPE: CT brain wo con DATE OF EXAM: 11/29/2016 COMPARISON: 12/21/2015 HISTORY: Headache and Left sided ear ringing CT DLP: 1054.2 mGycm Automated exposure control for dose reduction was used. FINDINGS: Ventricles are normal size. There is no mass effect nor midline shift. There is no sign of intracrani al hemorrhage. The calvarium is intact. Temporal bones appear intact. IMPRESSION: NEGATIVE CT SCAN OF THE BRAIN. NO CHANGE.
--- NOTE | 2016-11-29 17:53 | XR ---
EXAMINATION TYPE: XR chest 2V DATE OF EXAM: 11/29/2016 COMPARISON: 06/14/2016 HISTORY: Short of breath TECHNIQUE: Frontal and lateral views of the chest are obtained. FINDINGS: Heart and mediastinum are normal. Lungs are clear. Diaphragm is normal. Bony thorax is int act. IMPRESSION: Normal chest. No change.
[2016-11-29] MEDS ORDERED: ASPIRIN 81 MG CHEW PO STA (18:05)
[2016-11-29] MEDS ORDERED: HEPARIN SODIUM,PORCINE 5,000 UNIT/ML 1 ML VIAL IV ONE (18:05)
[2016-11-29] MEDS ORDERED: NITROGLYCERIN SL TABS 0.4 MG TAB SUBLINGUAL PRN (18:05)
[2016-11-29] MEDS ORDERED: SODIUM CHLORIDE 0.9% 1,000 ML IV ONE (18:05)
[2016-11-29] MEDS ORDERED: HEPARIN SODIUM,PORCINE/D5W PMX 25,000 UNIT in DEXTROSE/WATER 1 500ML.BAG IV SCH (18:15)
[2016-11-29 19:50] VITALS: RESP 18
[2016-11-29] MEDS ORDERED: VIT A,C & E-LUTEIN-MINERALS 1 EACH TAB PO SCH (22:00)
[2016-11-29] MEDS ORDERED: ATORVASTATIN 10 MG TAB PO SCH (22:00)
[2016-11-29 23:08] LABS: Creatine Kinase 126 U/L (30-135)
[2016-11-29 23:22] LABS: Troponin I <0.012 ng/mL (0.000-0.034)
[2016-11-30] MEDS ORDERED: ALPRAZolam 0.25 MG TAB PO PRN (01:45)
[2016-11-30] MEDS ORDERED: BACLOFEN 10 MG TAB PO PRN (01:45)
[2016-11-30 01:53] VITALS: BMI 31.6
[2016-11-30 05:54] LABS: Cholesterol 125 mg/dL (<200); Creatine Kinase 96 U/L (30-135); HDL Cholesterol 68 mg/dL (40-60)
[2016-11-30 06:07] LABS: Creatine Kinase MB 1.8 ng/mL (0.0-2.4); Troponin I <0.012 ng/mL (0.000-0.034)
[2016-11-30] MEDS ORDERED: buPROPion XL 150 MG TAB.ER.24H PO SCH (09:00)
[2016-11-30] MEDS ORDERED: LEVOTHYROXINE 75 MCG TAB PO SCH (09:00)
[2016-11-30] MEDS ORDERED: NON-FORMULARY DRUG (Ubidecarenone [Co Q-10] 100 MG) PO SCH (09:00)
[2016-11-30] MEDS ORDERED: CHOLECALCIFEROL 1,000 UNIT TAB PO SCH (09:00)
[2016-11-30] MEDS ORDERED: predniSONE 10 MG TAB PO SCH (09:00)
[2016-11-30] MEDS ORDERED: ASPIRIN 325 MG TAB PO SCH (09:00)
[2016-11-30] MEDS ORDERED: MULTIVITAMINS, THERA 1 EACH TAB PO SCH (12:00)
[2016-11-30] MEDS ORDERED: MECLIZINE 12.5 MG TAB PO STA (12:14)
--- NOTE | 2016-11-30 12:31 | CONS ---
This is a 61-year-old lady with a history of hyperlipidemia, hypothyroidism as migraine headaches. She has been dealing with an issue of tinnitus that is going on for a last couple of months and is scheduled to see an ENT specialist next week. She came into the hospital because the tinnitus became more significant. She felt some throbbing in the neck and also had some chest pressure and came into the hospital. Her symptoms of chest discomfort have resolved. She is resting comfortably without symptoms. Three sets of troponins are normal. The D-dimer was unremarkable. She is asymptomatic from a chest pain point of view but still has some tinnitus that bothers her. PAST MEDICAL HISTORY: Atypical chest pain with a complete workup that was performed including a stress echocardiogram in June of 2016. She walked for 6: 30 minutes, heart rate of 145 beats per minute without any evidence of ischemia. There was no angina or any significant arrhythmia. Medications at home include simvastatin, Wellbutrin. She also takes some prednisone and Synthroid 75 mcg daily and Xanax p.r.n. ALLERGIES: She is allergic to BUSPAR, KETAMINE and LACTOSE. On examination, blood pressure is 106/70, pulse rate is 68 per minute, regular. HEENT: Unremarkable, fundus was not examined by me. Neck is supple, no JVD. I do not hear a carotid bruit. There is no thyromegaly. Heart exam reveals S1, S2 heart normally. No rub, murmur or gallop. Lungs are clear. Abdomen is soft, nontender. Lower extremities reveal normal pulses, no edema. Central nervous system is normal. EKG reveals sinus mechanism, no acute changes. Laboratory data reveals unremarkable troponins. D-dimer is normal. IMPRESSION: 1. Atypical chest pain. 2. Tinnitus. 3. Hypothyroidism. 4. Hyperlipidemia. RECOMMENDATIONS: No further work-up is necessary from a cardiac standpoint. I will discontinue heparin, put on a hep-lock, increase activity and she can be discharged and follow up with the primary care physician and appointment for her tinnitus should be expedited. Discussed my thoughts in detail with the patient. Thank you very much for the consult. HANNAH
[2016-11-30 12:37] VITALS: BP 102/54; PULSE 78; TEMP 97.8
--- NOTE | 2016-11-30 13:02 | P.HPIM ---
History of Present Illness H&P Date: 11/30/16 Chief Complaint: Chest heaviness with some shortness of breath and left ringing in her ear This is a 61-year-old female, patient of [facility]. She has a known past medical history of vertigo, hyperlipidemia and hypothyroidism. Patient is been dealing with tinnitus in the left ear. Outpatient she was given a prescription for Antivert which she did not start yet because she was not feeling dizzy. She also mentioned she was having some headache and started to have some chest pressure and heaviness yesterday with shortness of breath and the static Eastsound in her left ear became more pronounced. She came into the emergency room for further evaluation. Cardiology was consulted. A computed tomography scan of the brain showed no acute changes. EKG shows normal sinus rhythm. Troponins were negative 3 sets. D-dimer was negative and chest x-ray was negative. Patient was evaluated by cardiology NC was ruled out. Patient had a recent stent stress echo in June 2016 which was negative. Cardiology had cleared her for discharge. Patient did have tenderness with palpation of the chest wall with rib producible discomfort. Shortness of breath has resolved. Patient does have seasonal ALLERGIES she takes Claritin at home. She reports also that she had a now a day ago as well and noted that there may have been slightly saltier than usual. Symptoms have shown improvement. She denies any chest pain any nausea or vomiting. Denies any bowel movement changes or urinary symptoms. Cardiology has cleared her for discharge. Patient also noted that a couple times she had a sensation change in her eyes when changing positions. Review of Systems Please refer to HPI otherwise unremarkable Past Medical History Past Medical History: Chest Pain / Angina, GERD/Reflux, Hyperlipidemia, Osteoarthritis (OA), Renal Disease, Skin Disorder, Thyroid Disorder Additional Past Medical History / Comment(s): hx optical migraines, vertigo, hx kidney stones, eczema, dermatitis, IBS, hiatal hernia,when chhild ear infections burst ear drum (lt) LACTOSE INTOLERNANT, tinnitus History of Any Multi-Drug Resistant Organisms: None Reported Past Surgical History: Adenoidectomy, Section, Joint Replacement, Tonsillectomy, Tubal Ligation Additional Past Surgical History / Comment(s): left hip replacement, C-sections x3, D & C Past Anesthesia/Blood Transfusion Reactions: Previous Problems w/ Anesthesia, Motion Sickness Additional Past Anesthesia/Blood Transfusion Reaction / Comment(s): Ketamine caused involuntary muscle movements and hallucinations. Smoking Status: Never smoker - Past Family History Father Family Medical History: Cancer, Hypertension Additional Family Medical History / Comment(s): Father of lung cancer at age 69 yrs. Mother Family Medical History: Hypertension Additional Family Medical History / Comment(s): Mother of complication from myasthenia gravis. She also had diverticulits. Medications and Allergies Home Medications Medication Instructions Recorded Confirmed Type Fish Oil/Dha/Epa [Fish Oil 1,200 1 cap PO HS 05/19/14 11/29/16 History mg Fish Oil] L.acid/L.casei/B.bif/B.raphael/Fos 1 cap PO HS 05/19/14 11/29/16 History [Probiotic Blend Capsule] Multivitamins, Thera [Multivitamin 1 tab PO QAM 05/19/14 11/29/16 History (formulary)] Simvastatin [Zocor] 20 mg PO HS 05/19/14 11/29/16 History Ubidecarenone [Co Q-10] 100 mg PO QAM 05/19/14 11/29/16 History Dicyclomine [Bentyl] 10 mg PO BID PRN 10/20/14 11/29/16 History Omeprazole [PriLOSEC] 20 mg PO DAILY PRN 10/20/14 11/29/16 History Levothyroxine Sodium [Synthroid] 75 mcg PO QAM 12/21/15 11/29/16 History Vits A,C,E/Lutein/Minerals 1 tab PO 12/21/15 11/29/16 History [Ocuvite with Lutein Tablet] Glucosamine/Chondr Rhodes A Sod [Osteo 1 tab PO HS 06/14/16 11/29/16 History Bi-Flex Caplet] Turmeric Root Extract [Turmeric] 500 mg PO HS 06/14/16 11/29/16 History buPROPion XL [Wellbutrin XL] 150 mg PO QAM 06/14/16 11/29/16 History ALPRAZolam [Xanax] 0.25 mg PO DAILY PRN 11/29/16 11/29/16 History Baclofen [Lioresal] 20 mg PO BID PRN 11/29/16 11/29/16 History Cholecalciferol (Vitamin D3) 2,000 unit PO QAM 11/29/16 11/29/16 History [Vitamin D3] predniSONE See Taper PO DAILY 11/29/16 11/29/16 History Allergies Allergy/AdvReac Type Severity Reaction Status Date / Time buspirone [From BuSpar] AdvReac Increased Verified 11/29/16 17:32 Anxiety clonazepam [From Klonopin] AdvReac Hallucinati Verified 11/29/16 17:32 ons ketamine AdvReac Hallucinations Verified 11/29/16 17:32 & Muscle Spasms lactose AdvReac Intolerant Verified 11/29/16 17:32 Physical Exam Vitals: Vital Signs Temp Pulse Pulse Resp BP BP BP 11/30/16 12:00 97.8 F 78 18 102/54 11/30/16 08:00 97.5 F L 66 18 99/73 11/30/16 04:00 98.1 F 53 L 18 96/60 11/30/16 00:00 18 11/29/16 22:28 65 18 117/67 11/29/16 20:00 18 11/29/16 19:53 120/77 11/29/16 19:49 98 F 65 18 11/29/16 19:05 76 20 124/76 11/29/16 18:00 78 20 127/80 11/29/16 16:54 93 18 11/29/16 15:22 98.8 F 103 H 18 132/72 Pulse Ox 11/30/16 12:00 98 11/30/16 08:00 99 11/30/16 04:00 100 11/30/16 00:00 11/29/16 22:28 100 11/29/16 20:00 11/29/16 19:53 11/29/16 19:49 100 11/29/16 19:05 99 11/29/16 18:00 96 11/29/16 16:54 96 11/29/16 15:22 97 Intake and Output 11/29/16 11/30/16 11/30/16 22:59 06:59 14:59 Other: Voiding Method Toilet Toilet Toilet # Voids 1 3 Weight 86.183 kg ENT had patient sit up and turn her head did not reproduce vertigo Head normocephalic Neck supple Lungs clear to auscultation bilaterally no wheezing or crackles Heart regular rate and rhythm S1-S2, no rub or gallop. Tenderness with palpation of the chest wall Abdomen is soft nontender nondistended positive bowel sounds no hepatosplenomegaly Extremities no edema Neuro alert and orientated to 3 Results CBC & Chem 7: 11/29/16 16:54 11/29/16 16:45 Labs: Abnormal Lab Results - Last 24 Hours (Table) 11/29/16 11/29/16 11/29/16 Range/Units 16:45 16:45 16:54 Neutrophils # 8.8 H (1.3-7.7) k/uL Lymphocytes # 0.8 L (1.0-4.8) k/uL APTT (22.0-30.0) sec Chloride 108 H (98-107) mmol/L BUN 19 H (7-17) mg/dL Glucose 109 H (74-99) mg/dL Total Creatine Kinase 156 H (30-135) U/L CK-MB (CK-2) 2.5 H* (0.0-2.4) ng/mL HDL Cholesterol (40-60) mg/dL 11/30/16 11/30/16 Range/Units 01:39 05:09 Neutrophils # (1.3-7.7) k/uL Lymphocytes # (1.0-4.8) k/uL APTT 56.0 H (22.0-30.0) sec Chloride (98-107) mmol/L BUN (7-17) mg/dL Glucose (74-99) mg/dL Total Creatine Kinase (30-135) U/L CK-MB (CK-2) (0.0-2.4) ng/mL HDL Cholesterol 68 H (40-60) mg/dL Thrombosis Risk Factor Assmnt - Choose All That Apply Any of the Below Risk Factors Present?: Yes Each Factor Represents 1 point: Obesity (BMI >25), Varicose veins Other Risk Factors: Yes Each Risk Factor Represents 2 Points: Age 61-74 years Other congenital or acquired thrombophilia - If yes, enter type in comment: No Thrombosis Risk Factor Assessment Total Risk Factor Score: 4 Thrombosis Risk Factor Assessment Level: Moderate Risk Assessment and Plan Plan: 1. Chest discomfort: NC ruled out. Symptoms are likely secondary to costochondritis. Pain is reproducible with palpation. EKG normal sinus rhythm. Troponins negative 3 sets. D-dimer negative. Chest x-ray negative. Recent stress test June 2016 which was unremarkable. And patient seen evaluated by cardiology they have cleared her for discharge 2. Tinnitus and vertigo: Will give patient 1 dose of Antivert now. Recommend that she does use the Antivert more often at home. Patient reports that she did not start the medication because she was not having dizziness. Follow-up with her scheduled appointment with Dr. Lange 3. Seasonal ALLERGIES. Continues Claritin. Also recommended Flonase over-the- counter. Patient did not want a prescription at this time 4. Costochondritis recommend ibuprofen [id number]. 5. Known degenerative disc disease currently on prednisone outpatient. She can continue her taper 6. Hyperlipidemia 7. Hypothyroidism Time with Patient: Greater than 30 (Greater than 50% of the total time spent in counseling and coordination of care.I performed an examination of the patient and discussed their management with the physician Boat Fueler. I have reviewed the Physician Boat Fueler's notes and agree with the documented findings and plan of care)
--- NOTE | 2016-11-30 13:07 | P.DS ---
Providers Date of admission: 11/29/16 18:07 Expected date of discharge: 11/30/16 Attending physician: Yuval Bose Consults: 11/29/16 18:05 Consult Physician Stat Consulting Provider: [facility] Consult Reason/Comments: chest pain Do you want consulting provider notified?: Yes Primary care physician: Ai Sabillon [facility] Course: Discharge diagnosis 1. Chest discomfort: MD ruled out. Symptoms are likely secondary to costochondritis. Pain is reproducible with palpation. EKG normal sinus rhythm. Troponins negative 3 sets. D-dimer negative. Chest x-ray negative. Recent stress test June 2016 which was unremarkable. And patient seen evaluated by cardiology they have cleared her for discharge 2. Tinnitus and vertigo: Will give patient 1 dose of Antivert now. Recommend that she does use the Antivert more often at home. Patient reports that she did not start the medication because she was not having dizziness. Follow-up with her scheduled appointment with Dr. Lange 3. Seasonal ALLERGIES. Continues Claritin. Also recommended Flonase over-the- counter. Patient did not want a prescription at this time 4. Costochondritis recommend ibuprofen [id number]. 5. Known degenerative disc disease currently on prednisone outpatient. She can continue her taper 6. Hyperlipidemia 7. Hypothyroidism Hospital course This is a 61-year-old female, patient of [facility]. She has a known past medical history of vertigo, hyperlipidemia and hypothyroidism. Patient is been dealing with tinnitus in the left ear. Outpatient she was given a prescription for Antivert which she did not start yet because she was not feeling dizzy. She also mentioned she was having some headache and started to have some chest pressure and heaviness yesterday with shortness of breath and the static Eastsound in her left ear became more pronounced. She came into the emergency room for further evaluation. Cardiology was consulted. A computed tomography scan of the brain showed no acute changes. EKG shows normal sinus rhythm. Troponins were negative 3 sets. D-dimer was negative and chest x-ray was negative. Patient was evaluated by cardiology MD was ruled out. Patient had a recent stent stress echo in June 2016 which was negative. Cardiology had cleared her for discharge. Patient did have tenderness with palpation of the chest wall with rib producible discomfort. Shortness of breath has resolved. Patient does have seasonal ALLERGIES she takes Claritin at home. She reports also that she had a now a day ago as well and noted that there may have been slightly saltier than usual. Symptoms have shown improvement. She denies any chest pain any nausea or vomiting. Denies any bowel movement changes or urinary symptoms. Cardiology has cleared her for discharge. Patient also noted that a couple times she had a sensation change in her eyes when changing positions. Patient is medically stable for discharge. We'll have her follow-up with Dr. Lange outpatient in regards to her tinnitus and vertigo. Recommend that she uses Antivert as scheduled at home. Patient's symptoms have improved. And she can continue with the Motrin [id number] for the costochondritis. Patient was cleared by cardiology for discharge. Please refer to chart for any further details. I performed an examination of the patient and discussed their management with the physician Greens Or Grounds Superintendent. I have reviewed the Physician [employer] Or Grounds Superintendent's notes and agree with the documented findings and plan of care Patient Condition at Discharge: Stable Plan - Discharge Summary New Discharge Prescriptions: Continue Simvastatin [Zocor] 20 mg PO HS Ubidecarenone [Co Q-10] 100 mg PO QAM Multivitamins, Thera [Multivitamin (formulary)] 1 tab PO QAM L.acid/L.casei/B.bif/B.raphael/Fos [Probiotic Blend Capsule] 1 cap PO HS Fish Oil/Dha/Epa [Fish Oil 1,200 mg Fish Oil] 1 cap PO HS Omeprazole [PriLOSEC] 20 mg PO DAILY PRN PRN Reason: Indigestion Dicyclomine [Bentyl] 10 mg PO BID PRN PRN Reason: Abdominal Cramping Vits A,C,E/Lutein/Minerals [Ocuvite with Lutein Tablet] 1 tab PO HS Levothyroxine Sodium [Synthroid] 75 mcg PO QAM Glucosamine/Chondr Rhodes A Sod [Osteo Bi-Flex Caplet] 1 tab PO HS buPROPion XL [Wellbutrin XL] 150 mg PO QAM Turmeric Root Extract [Turmeric] 500 mg PO HS predniSONE See Taper PO DAILY Baclofen [Lioresal] 20 mg PO BID PRN PRN Reason: Muscle Spasm/Pain Cholecalciferol (Vitamin D3) [Vitamin D3] 2,000 unit PO QAM ALPRAZolam [Xanax] 0.25 mg PO DAILY PRN PRN Reason: Anxiety Discharge Medication List Fish Oil/Dha/Epa [Fish Oil 1,200 mg Fish Oil] 1 cap PO HS 05/19/14 [History] L.acid/L.casei/B.bif/B.raphael/Fos [Probiotic Blend Capsule] 1 cap PO HS 05/19/14 [ History] Multivitamins, Thera [Multivitamin (formulary)] 1 tab PO QAM 05/19/14 [History] Simvastatin [Zocor] 20 mg PO HS 05/19/14 [History] Ubidecarenone [Co Q-10] 100 mg PO QAM 05/19/14 [History] Dicyclomine [Bentyl] 10 mg PO BID PRN 10/20/14 [History] Omeprazole [PriLOSEC] 20 mg PO DAILY PRN 10/20/14 [History] Levothyroxine Sodium [Synthroid] 75 mcg PO QAM 12/21/15 [History] Vits A,C,E/Lutein/Minerals [Ocuvite with Lutein Tablet] 1 tab PO HS 12/21/15 [ History] Glucosamine/Chondr Rhodes A Sod [Osteo Bi-Flex Caplet] 1 tab PO HS 06/14/16 [History ] Turmeric Root Extract [Turmeric] 500 mg PO HS 06/14/16 [History] buPROPion XL [Wellbutrin XL] 150 mg PO QAM 06/14/16 [History] ALPRAZolam [Xanax] 0.25 mg PO DAILY PRN 11/29/16 [History] Baclofen [Lioresal] 20 mg PO BID PRN 11/29/16 [History] Cholecalciferol (Vitamin D3) [Vitamin D3] 2,000 unit PO QAM 11/29/16 [History] predniSONE See Taper PO DAILY 11/29/16 [History] Follow up Appointment(s)/Referral(s): Ai Sabillon DO [Primary Care Provider] - 1 Week Activity/Diet/Wound Care/Special Instructions: Diet: low salt Activity: as tolerated Continue Antivert as prescribed by her PCP. Follow-up with Dr. Lange on December 13 as scheduled Discharge Disposition: HOME SELF-CARE
[2016-11-30] MEDS ORDERED: NON-FORMULARY DRUG (Turmeric Root Extract [Turmeric] 500 MG) PO SCH (21:00)
== END 2016-11-30 14:42 | disposition home or self-care (01) ==
LOC: EC 15:19 → 3OBS 18:07
PROVIDERS: ADMIT Internal Medicine; ATTEND Internal Medicine
DX: R07.89 Other chest pain (principal); H93.12 Tinnitus, left ear; R42 Dizziness and giddiness; J30.2 Other seasonal allergic rhinitis; E03.9 Hypothyroidism, unspecified; E78.5 Hyperlipidemia, unspecified; M94.0 Chondrocostal junction syndrome [Tietze]; E66.9 Obesity, unspecified; Z68.31 Body mass index [BMI] 31.0-31.9, adult; R51 Headache; Z79.899 Other long term (current) drug therapy; Z79.52 Long term (current) use of systemic steroids; Z88.8 Allergy status to other drugs, medicaments and biological substances; K21.9 Gastro-esophageal reflux disease without esophagitis; M19.90 Unspecified osteoarthritis, unspecified site; K58.9 Irritable bowel syndrome, unspecified; E73.9 Lactose intolerance, unspecified; F41.9 Anxiety disorder, unspecified; F32.9 Major depressive disorder, single episode, unspecified
CPT/HCPCS: 99285 ×2; 96376 ×2; 96361 ×4; 96365 ×2; 96366 ×2; 36415; 93005; 85379; 83880; 80061; 80053; 82550 ×2; 82553 ×2; 83735; 84484 ×2; 85025; 85610; 85730 ×2; 71020; 70450; G0378 ×2; J1644 ×2; J7512

== ENCOUNTER → 2016-11-30 | Outpatient (CLI) | payer BC ==
--- NOTE | 2016-12-01 08:20 | MM ---
Reason for exam: additional evaluation requested from abnormal screening. Last mammogram was performed less than 1 month ago. History: Patient is postmenopausal. Took hormonal contraceptives for 6 years beginning at age 18. Physical Findings: Nurse did not find any significant physical abnormalities on exam. MG Work Up Mamm w CAD LT CC, MLO, LM, spot compression MLO, and spot compression CC view(s) were taken of the left breast. Prior study comparison: November 24, 2016, bilateral MG screening mammo w CAD. November 04, 2015, bilateral MG screening mammo w CAD. October 29, 2014, bilateral MG screening mammo w CAD. October 08, 2013, bilateral MG screening mammo w CAD. There are scattered fibroglandular densities. The questioned focal asymmetry in the upper outer quadrant does not persist compatible with summation shadow. These results were verbally communicated with the patient and result sheet given to the patient on 11/30/16. ASSESSMENT: Negative, BI-RAD 1 RECOMMENDATION: Return to routine screening mammogram schedule for both breasts.
== END | disposition home or self-care (01) ==
LOC: RADMAMWWP 14:46
PROVIDERS: ATTEND Family Medicine
DX: R92.8 Other abnormal and inconclusive findings on diagnostic imaging of breast (principal)

== ENCOUNTER → 2016-12-27 | Outpatient (CLI) | payer BC ==
--- NOTE | 2016-12-27 11:06 | MR ---
EXAMINATION TYPE: MR brain and iac wo/w con DATE OF EXAM: 12/27/2016 COMPARISON: b HISTORY: acoustic nerve disorder, tinnitus TECHNIQUE: Multiplanar, multisequence images of the brain and brainstem is performed without and with IV contras t, utilizing 7.5 mL intravenous Gadavist . FINDINGS: Diffusion weighted images demonstrate no evidence of a recent infarct or other diffusion ab normality. There is no extra-axial fluid collection or significant white matter signal abnormality. The ventricular system and cisternal spaces are normal in size and appearance. The brain volume is age appropriate. Midline structures demonstrate normal morphology. The craniocervical junction appears within normal limits. Post contrast images demonstrate no abnormal enhancement. The dural venous sinuses appear pa tent. The visualized sinuses are clear and the globes are intact. Degenerative disc disease noted inc identally in the cervical spine. IMPRESSION: Unremarkable exam of the brain and internal auditory canals, cervical degenerative disc d isease.
== END | disposition home or self-care (01) ==
LOC: RADMRIMAIN 08:19
PROVIDERS: ATTEND Otolaryngology
DX: H93.12 Tinnitus, left ear (principal); H91.92 Unspecified hearing loss, left ear; H93.3X2 Disorders of left acoustic nerve; R42 Dizziness and giddiness
CPT/HCPCS: 70553; A9581

== ENCOUNTER → 2017-04-13 | Outpatient (CLI) | payer BC ==
--- NOTE | 2017-04-13 10:23 | CT ---
EXAMINATION TYPE: CT abdomen pelvis w con DATE OF EXAM: 04/13/2017 HISTORY: Abdominal pain, bloating, occ. Diarrhea CT DLP: 996.0mGycm Automated Exposure Control for Dose Reduction was Utilized. CONTRAST: CT scan of the abdomen and pelvis is performed with IV Contrast, patient injected with 100 mL of Omni paque 300. Coronal and sagittal reformats were obtained for review. COMPARISON: 05/09/2012 FINDINGS: Patient motion slightly limits the examination. LUNG BASES: No significant abnormality is appreciated. LIVER/GB: Hepatic parenchyma enhances homogeneously. No radiopaque choleliths are seen. No focal hepa tic mass or intrahepatic biliary ductal dilatation. Gallbladder is slightly elongated measuring 6.6 c m although nondilated. No pericholecystic fluid or right upper quadrant fat stranding is seen. No com mon bile duct dilation to suggest acute cholecystitis. PANCREAS: There is slight atrophy of the pancreatic head. No ductal dilatation. Pancreas enhances fransico ogeneously. This is similar to exam of 2010. SPLEEN: Spleen is nonenlarged and unremarkable. ADRENALS: Right adrenal gland is slightly obscured by patient motion. Left adrenal gland is unremarka ble. No gross abnormality in the right. KIDNEYS: 5 mm right lower pole nonobstructing renal calculus is identified. The kidneys enhance and e xcrete symmetrically without hydronephrosis or perinephric fat stranding. BOWEL: Small duodenal diverticulum is incidentally noted. Sigmoid colon is partially obscured by spra y artifact from the left arthroplasty. Sigmoid colon is redundant and contains few small diverticula. No pericolonic fat stranding. Moderate amount retained stool is seen within the colon, predominantly within the right hemicolon. UTERUS/ADNEXA: No gross abnormality seen. LYMPH NODES: No greater than 1cm abdominal or pelvic lymph nodes are appreciated. OSSEOUS STRUCTURES: There is a left hip arthroplasty present crating spray artifact. Well-circumscrib ed sclerotic lesion of the T12 vertebral body likely represents a bone island as a second smaller sim ilar lesion is seen of the L4 vertebral body. Multilevel mild degenerative changes of the thoracolumb ar spine are more pronounced in the thoracic spine. IMPRESSION: 1. Nonobstructing right lower pole 5 mm renal calculus. No evidence of hydronephrosis within either k idney. 2. No CT findings to correlate with the patient's generalized abdominal pain. Gallbladder is slightly elongated although there is no CT evidence of acute cholecystitis. HIDA scan with CCK could be perfo rmed to evaluate for biliary dyskinesia or chronic cholecystitis in the appropriate clinical setting.
== END ==
LOC: RADCTMAIN 09:37
PROVIDERS: ATTEND Physician Assistant
DX: R10.9 Unspecified abdominal pain (principal)
CPT/HCPCS: 74177; Q9967

== ENCOUNTER → 2017-12-05 | Outpatient (CLI) | payer BC ==
--- NOTE | 2017-12-05 09:26 | BD ---
EXAMINATION TYPE: Axial Bone Density DATE OF EXAM: 12/05/2017 COMPARISON: NONE CLINICAL HISTORY: weight: 65.5 Weight: 193.8 FRAX RISK QUESTIONS: Alcohol (3 or more units per day): no Family History (Parent hip fracture): no Glucocorticoids (More than 3mos): no (Ex: prednisone, prednisolone, methylprednisolone, dexamethasone, and hydrocortisone). History of Fracture in Adulthood: no Secondary Osteoporosis: 1. Type 1 Diabetes: no 2. Hyperthyroidism: no 3. Menopause before 45: no 4. Malnutrition: no 5. Chronic liver disease: no Rheumatoid Arthritis: no Current Tobacco Use: no RISK FACTORS HISTORY OF: History of Wrist Fracture: lt wrist When: as a child Surgery to Spine/Hip(right/left)/Wrist (right/left): left hip When: 2012 Family History of Osteoporosis: yes Active: yes Diet low in dairy products/other sources of calcium: yes Postmenopausal woman: age 50 Lost more than 2 inches in height since high school: no Frequent falls: no MEDICATIONS: simvastatin, amotripolene, omeprazole, vitamins Thyroid Medications: levothyroxine How Lon years Additional History: EXAM MEASUREMENTS: Bone mineral densitometry was performed using the [employer]. Bone mineral density as measured about the Lumbar spine is: ----- L1-L4(G/cm2): 1.102 T Score Values are as follows: ----- L2: -0.8 ----- L3: -0.3 ----- L4: 0.3 ----- L1-L4: -0.7 Bone mineral density has: increased %1.5 since study of: 10.29.2014 Bone mineral density about the R hip (g/cm2): 0.734 T Score values are as follows: -----R Neck: -2.2 -----R Total: -1.7 Bone mineral density has: decreased -3.2% since study of: 10.29.2014 IMPRESSION: Osteopenia (T Score between -2.5 and -1). There is slightly increased risk of fracture and the patient may be considered for treatment. Re-Screen 2-5 years. NOTE: T-SCORE=SD OF THE YOUNG ADULT MEAN.
--- NOTE | 2017-12-07 09:10 | MM ---
Reason for exam: screening (asymptomatic). Last mammogram was performed 1 year ago. History: Patient is postmenopausal. Took hormonal contraceptives for 6 years beginning at age 18. Physical Findings: A clinical breast exam by your physician is recommended on an annual basis and results should be correlated with mammographic findings. MG 3D Screening Mammo W/Cad Bilateral CC and MLO view(s) were taken. Prior study comparison: November 30, 2016, left breast MG work up mamm w CAD LT. November 24, 2016, bilateral MG screening mammo w CAD. There are scattered fibroglandular densities. Developing asymmetry subareolar right and left MLO view, not on CC or distinct on tomosynthesis. This finding is changed when compared with previous exams. ASSESSMENT: Probably benign, BI-RAD 3 RECOMMENDATION: Follow-up diagnostic mammogram of both breasts in 6 months.
== END | disposition home or self-care (01) ==
LOC: RADMAMWWP 07:26
PROVIDERS: ATTEND Family Medicine
DX: Z12.31 Encounter for screening mammogram for malignant neoplasm of breast (principal); M85.80 Other specified disorders of bone density and structure, unspecified site
CPT/HCPCS: 77063; 77067; 77080

== ENCOUNTER 2018-01-03 08:00 | Day surgery (SDC) | payer BC ==
[2018-01-01 15:57] VITALS: BMI 29.7
[~2018-01-03 08:00] MED LIST: LACTATED RINGERS 1,000 ML IV SCH; LIDOCAINE 1% 20 ML VIAL (10MG/ML) FOR IV START INTRADERMA PRN; MIDAZOLAM 2 MG/2 ML VIAL IV PRN
[2018-01-03 08:16] VITALS: RESP 16; TEMP 97.7
[2018-01-03] MEDS ORDERED: PROPOFOL 10 MG/ML 20 ML VIAL IV ONE (08:40)
--- NOTE | 2018-01-03 08:47 | P.GSHP ---
History of Present Illness H&P Date: 01/03/18 Chief Complaint: GERD This is a 60-year-old female referred from Dr. Mcintosh. Patient's had issues with GERD. She presents today for EGD. Past Medical History Past Medical History: GERD/Reflux, Hyperlipidemia, Osteoarthritis (OA), Skin Disorder, Thyroid Disorder Additional Past Medical History / Comment(s): hx optical migraines, vertigo, hx kidney stones, eczema, dermatitis, IBS, hiatal hernia, tinnitus History of Any Multi-Drug Resistant Organisms: None Reported Past Surgical History: Adenoidectomy, Section, Joint Replacement, Tonsillectomy, Tubal Ligation Additional Past Surgical History / Comment(s): left hip replacement, C-sections x3, D & C Past Anesthesia/Blood Transfusion Reactions: Previous Problems w/ Anesthesia, Motion Sickness Additional Past Anesthesia/Blood Transfusion Reaction / Comment(s): Ketamine caused involuntary muscle movements and hallucinations. Smoking Status: Never smoker - Past Family History Father Family Medical History: Cancer, Hypertension Additional Family Medical History / Comment(s): Father of lung cancer at age 69 yrs. Mother Family Medical History: Hypertension Additional Family Medical History / Comment(s): Mother of complication from myasthenia gravis. She also had diverticulits. Medications and Allergies Home Medications Medication Instructions Recorded Confirmed Type Fish Oil/Dha/Epa [Fish Oil 1,200 1 cap PO HS 05/19/14 01/01/18 History mg Fish Oil] L.acid/L.casei/B.bif/B.raphael/Fos 1 cap PO HS 05/19/14 01/01/18 History [Probiotic Blend Capsule] Multivitamins, Thera [Multivitamin 1 tab PO QAM 05/19/14 01/01/18 History (formulary)] Simvastatin [Zocor] 20 mg PO HS 05/19/14 01/01/18 History Ubidecarenone [Co Q-10] 100 mg PO QAM 05/19/14 01/01/18 History Dicyclomine [Bentyl] 10 mg PO BID PRN 10/20/14 01/03/18 History Omeprazole [PriLOSEC] 40 mg PO DAILY 10/20/14 01/01/18 History Levothyroxine Sodium [Synthroid] 75 mcg PO QAM 12/21/15 01/03/18 History Vits A,C,E/Lutein/Minerals 1 tab PO HS 12/21/15 01/01/18 History [Ocuvite with Lutein Tablet] Glucosamine/Chondr Rhodes A Sod [Osteo 1 tab PO HS 06/14/16 01/01/18 History Bi-Flex Caplet] Turmeric Root Extract [Turmeric] 500 mg PO HS 06/14/16 01/01/18 History ALPRAZolam [Xanax] 0.25 mg PO DAILY PRN 11/29/16 01/03/18 History Cholecalciferol (Vitamin D3) 2,000 unit PO QAM 11/29/16 01/01/18 History [Vitamin D3] Amitriptyline HCl [Elavil] 25 mg PO HS 01/01/18 01/03/18 History Allergies Allergy/AdvReac Type Severity Reaction Status Date / Time buspirone [From BuSpar] AdvReac Increased Verified 01/03/18 08:10 Anxiety clonazepam [From Klonopin] AdvReac Hallucinati Verified 01/03/18 08:10 ons ketamine AdvReac Hallucinations Verified 01/03/18 08:10 & Muscle Spasms lactose AdvReac Intolerant Verified 01/03/18 08:10 Surgical - Exam Vital Signs Temp Pulse Resp BP Pulse Ox 97.7 F 103 H 16 126/67 94 L 01/03/18 08:15 01/03/18 08:15 01/03/18 08:15 01/03/18 08:15 01/03/18 08:15 - General well developed, no distress - Eyes PERRL - ENT normal pinna - Neck no masses - Respiratory normal expansion - Cardiovascular Rhythm: regular - Abdomen Abdomen: soft, non tender Assessment and Plan Assessment: GERD. We'll perform EGD.
--- NOTE | 2018-01-03 08:54 | P.OP ---
Date of Procedure: 01/03/18 Preoperative Diagnosis: GERD Postoperative Diagnosis: Antral gastritis Small hiatal hernia Mild esophagitis Procedure(s) Performed: EGD Anesthesia: MAC Surgeon: Jonny Patrick Pathology: other (Antrum, esophagus) Condition: stable Disposition: PACU Description of Procedure: The patient's placed on the endoscopy table in the lateral position. She received IV sedation. The gastric was placed oropharynx and passed in the esophagus into stomach. Scope was then placed through the pylorus. The first and second portion of the duodenum appeared normal. Scope was then brought back the antrum and this appeared mildly inflamed. A biopsies performed. The scope was then retroflexed and the remainder of the stomach appeared normal. There was a small hiatal hernia. The GE junction was at 38 cm. The distal esophagus was mildly inflamed a biopsies performed. The proximal esophagus appeared normal. Scope was withdrawn for patient.
[2018-01-03 09:16] VITALS: BP 99/67; PULSE 92
== END 2018-01-03 09:50 | disposition home or self-care (01) ==
LOC: ORWHC2ENDO 08:00
PROVIDERS: ATTEND Surgery
DX: K29.50 Unspecified chronic gastritis without bleeding (principal); K21.0 Gastro-esophageal reflux disease with esophagitis; K44.9 Diaphragmatic hernia without obstruction or gangrene; E78.5 Hyperlipidemia, unspecified; M19.90 Unspecified osteoarthritis, unspecified site; E07.9 Disorder of thyroid, unspecified; L30.9 Dermatitis, unspecified; K58.9 Irritable bowel syndrome, unspecified; G43.809 Other migraine, not intractable, without status migrainosus; F39 Unspecified mood [affective] disorder; Z96.642 Presence of left artificial hip joint; Z79.890 Hormone replacement therapy; Z79.899 Other long term (current) drug therapy; Z87.442 Personal history of urinary calculi; Z98.51 Tubal ligation status; Z88.8 Allergy status to other drugs, medicaments and biological substances
CPT/HCPCS: 88305; 43239; J2704

== ENCOUNTER → 2018-01-17 | Outpatient (CLI) | payer BC ==
--- NOTE | 2018-01-17 15:13 | NM ---
EXAMINATION TYPE: NM hepatobiliary w EF DATE OF EXAM: 01/17/2018 COMPARISON: NONE HISTORY: Right upper quadrant pain TECHNIQUE: After the intravenous administration of 5.18 mCi Tc 99m Mebrofenin hepatobiliary scintigra phy is performed. Immediate images post injection. FINDINGS: There is satisfactory initial accumulation of tracer by the liver. The gallbladder is visualized wit hin 6 minutes. The small bowel activity is noted within 16 minutes. At one hour 8 ounces of oral en sure plus is given to mimic CCK and gallbladder ejection fraction is calculated at 83 %, in the dewayne l range. Therefore there is no scintigraphic evidence of cystic or common bile duct obstruction to s uggest acute cholecystitis or gallbladder dyskinesia. IMPRESSION: Exam is within normal limits.
== END | disposition home or self-care (01) ==
LOC: RADNMMAIN 12:45
PROVIDERS: ATTEND Family Medicine
DX: R10.11 Right upper quadrant pain (principal)
CPT/HCPCS: 78226; A9537

== ENCOUNTER → 2018-02-01 | Outpatient (CLI) | payer BC ==
--- NOTE | 2018-02-01 11:41 | FL ---
EXAMINATION TYPE: FL barium swallow DATE OF EXAM: 02/01/2018 CLINICAL HISTORY: Gastroesophageal reflux and small hiatal hernia. TECHNIQUE: A double contrast esophagram is performed utilizing air and barium. A total of 2 minutes and 1 seconds of fluoroscopic time was utilized during procedure.100 images saved. COMPARISON: None FINDINGS: The esophagus shows delayed motility and emptying into the stomach. Very small hiatal herni a is present. No evidence of or stricture noted. Minimal significant gastroesophageal reflux was seen during real time performance of this study. However moderate grade intraesophageal reflux was apprec iated of contrast that has not extended past the gastroesophageal junction. IMPRESSION: 1. Very small hiatal hernia. 2. Moderate grade intraesophageal reflux and mild grade gastroesophageal reflux. No evidence of focal stricture.
== END | disposition home or self-care (01) ==
LOC: RADFLWHC 09:25
PROVIDERS: ATTEND Otolaryngology
DX: K44.9 Diaphragmatic hernia without obstruction or gangrene (principal); K21.9 Gastro-esophageal reflux disease without esophagitis
CPT/HCPCS: 74220

== ENCOUNTER → 2018-06-26 | Outpatient (CLI) | payer BC ==
--- NOTE | 2018-06-26 11:22 | MM ---
Reason for exam: follow-up at short interval from prior study. Last mammogram was performed 7 months ago. History: Patient is postmenopausal. Took hormonal contraceptives for 6 years beginning at age 18. Physical Findings: Nurse did not find any significant physical abnormalities on exam. MG 3D Diag Mammo W/Cad TAVARES Bilateral CC and MLO view(s) were taken. Prior study comparison: December 05, 2017, bilateral MG 3d screening mammo w/cad. November 30, 2016, left breast MG work up mamm w CAD LT. There are scattered fibroglandular densities. Left distortion in the central outer quadrant. These results were verbally communicated with the patient and result sheet given to the patient on 06/26/18. ASSESSMENT: Incomplete: need additional imaging evaluation, BI-RAD 0 RECOMMENDATION: Ultrasound of the left breast. (lateral)
--- NOTE | 2018-06-26 11:24 | USB ---
Reason for exam: additional evaluation requested from abnormal screening. History: Patient is postmenopausal. Took hormonal contraceptives for 6 years beginning at age 18. US Breast Limited LT Left limited breast ultrasound including focal area of concern, retroareolar and axilla demonstrates a 3 x 2 x 5mm oval, cystic lesion at 5 o'clock and a 3mm oval, hypoechoic lesion at 1 o'clock. These results were verbally communicated with the patient and result sheet given to the patient on 06/26/18. ASSESSMENT: Suspicious, BI-RAD 4 RECOMMENDATION: Ultrasound core biopsy of the left breast. (ensure correlation on post biopsy mammogram) Called Dr. Sabillon with mammographic findings and has scheduled an appointment for the patient for 07/19/18 at 4:[address] Ortez. Biopsy scheduled for 07/22/18 at 8:00. PRELIMINARY REPORT CALLED AND FAXED TO DR. ORTEZ ON 06/26/18.
== END | disposition home or self-care (01) ==
LOC: RADMAMWWP 07:18
PROVIDERS: ATTEND Family Medicine
DX: R92.8 Other abnormal and inconclusive findings on diagnostic imaging of breast (principal)
CPT/HCPCS: 77062; 77066

== ENCOUNTER → 2018-08-22 | Outpatient (CLI) | payer BC ==
[2018-08-22 14:49] VITALS: BP 108/72; PULSE 96; RESP 20; TEMP 98.5; BMI 30.4
--- NOTE | 2018-08-22 15:06 | P.GSHP ---
History of Present Illness H&P Date: 08/22/18 Chief Complaint: abnormal mammogram Micaela is a 62-year-old white female who had a routine screening mammogram [place] [id number]. This revealed an area of distortion in the central portion of the left breast in the outer quadrant. The patient then underwent an ultrasound which re vealed a 3 mm oval hypoechoic lesion at 1:00. Was recommended she undergo an ultrasound core biopsy of the left breast with a postprocedure mammogram to ensure that the area of concern on mammogram had been sampled. This was a routine screening mammogram. The patient denies any pain in her breast. She has no nipple discharge or skin changes. No report of any history of trauma to the breast. Family History: father: lung maternal uncle: stomach cancer Hormonal History: menarche: 12 : 1 [place], breast fed: yes, first born at 23 menopause: 50 BCP: 3 years hormones: none Past surgical history: 1. 3 C-sections 2. Tubal ligation 3. Hip replacement 4. Tonsil and adenoids Past Medical History: 1. hypothyroid 2. vertigo 3. tinnitis 4. reflux 5. hiatal hernia Social History: smoke: none alcohol: none drugs: none - Constitutional Constitutional: Denies chills, Denies fever - EENT Eyes: denies blurred vision, denies pain Ears: bilateral: decreased hearing, tinnitus Ears, nose, mouth and throat: Denies headache, Denies sore throat - Breasts Breasts: bilateral: as per HPI - Cardiovascular Cardiovascular: Denies chest pain, Denies shortness of breath - Respiratory Respiratory: Denies cough, Denies 7 - Gastrointestinal Comment: reflux, IBS Gastrointestinal: Denies abdominal pain, Denies diarrhea, Denies nausea, Denies vomiting - Genitourinary (Female) Genitourinary: Denies dysuria, Denies hematuria - Menstruation Menstruation: Reports postmenopausal - Musculoskeletal Comment: arthritis - Integumentary Comment: Eczema Integumentary: Denies pruritus, Denies rash - Neurological Comment: ocular migraine Neurological: Denies numbness, Denies weakness - Psychiatric Psychiatric: Reports anxiety, Reports depression - Endocrine Comment: hypothyroid Endocrine: Denies fatigue, Denies weight change - Hematologic/Lymphatic Comment: none - Allergic/Immunologic Allergic/Immunologic: Reports as per HPI, Reports seasonal allergies Past Medical History Past Medical History: GERD/Reflux, Hyperlipidemia, Osteoarthritis (OA), Skin Disorder, Thyroid Disorder Additional Past Medical History / Comment(s): hx optical migraines, vertigo, hx kidney stones, eczema, dermatitis, IBS, hiatal hernia, tinnitus History of Any Multi-Drug Resistant Organisms: None Reported Past Surgical History: Adenoidectomy, Section, Joint Replacement, Tonsillectomy, Tubal Ligation Additional Past Surgical History / Comment(s): left hip replacement, C-sections x3, D & C Past Anesthesia/Blood Transfusion Reactions: Previous Problems w/ Anesthesia, Motion Sickness Additional Past Anesthesia/Blood Transfusion Reaction / Comment(s): Ketamine caused involuntary muscle movements and hallucinations. Past Psychological History: Anxiety, Depression Additional Psychological History / Comment(s): Pt lives alone in apt, has 2 porch steps, 1 step into building and 8 steps up to apt. She is independent-no assitive devices used.. She is employed as a behavioral healkth clinician. She drives a car. hax of depression feels well maintained on her medications. Smoking Status: Never smoker Past Alcohol Use History: None Reported Past Drug Use History: None Reported - Past Family History Father Family Medical History: Cancer, Hypertension Additional Family Medical History / Comment(s): Father of lung cancer at age 69 yrs. Mother Family Medical History: Hypertension Additional Family Medical History / Comment(s): passed from complications of myasthenia gravis Medications and Allergies Home Medications Medication Instructions Recorded Confirmed Type Fish Oil/Dha/Epa [Fish Oil 1,200 1 cap PO HS 05/19/14 08/22/18 History mg Fish Oil] L.acid/L.casei/B.bif/B.raphael/Fos 1 cap PO HS 05/19/14 08/22/18 History [Probiotic Blend Capsule] Multivitamins, Thera [Multivitamin 1 tab PO QAM 05/19/14 08/22/18 History (formulary)] Simvastatin [Zocor] 20 mg PO HS 05/19/14 08/22/18 History Ubidecarenone [Co Q-10] 100 mg PO QAM 05/19/14 08/22/18 History Omeprazole [PriLOSEC] 40 mg PO DAILY 10/20/14 08/22/18 History Levothyroxine Sodium [Synthroid] 75 mcg PO QAM 12/21/15 08/22/18 History Vits A,C,E/Lutein/Minerals 1 tab PO HS 12/21/15 08/22/18 History [Ocuvite with Lutein Tablet] Glucosamine/Chondr Rhodes A Sod [Osteo 1 tab PO HS 06/14/16 08/22/18 History Bi-Flex Caplet] Turmeric Root Extract [Turmeric] 500 mg PO HS 06/14/16 08/22/18 History ALPRAZolam [Xanax] 0.25 mg PO DAILY PRN 11/29/16 08/22/18 History Cholecalciferol (Vitamin D3) 2,000 unit PO QAM 11/29/16 08/22/18 History [Vitamin D3] Amitriptyline HCl [Elavil] 25 mg PO HS 01/01/18 08/22/18 History Allergies Allergy/AdvReac Type Severity Reaction Status Date / Time buspirone [From BuSpar] AdvReac Increased Verified 08/22/18 14:38 Anxiety clonazepam [From Klonopin] AdvReac Hallucinati Verified 08/22/18 14:38 ons ketamine AdvReac Hallucinations Verified 08/22/18 14:38 & Muscle Spasms lactose AdvReac Intolerant Verified 08/22/18 14:38 Surgical - Exam Vital Signs Temp Pulse Resp BP Pulse Ox 98.5 F 96 20 108/72 100 08/22/18 14:41 08/22/18 14:41 08/22/18 14:41 08/22/18 14:41 08/22/18 14:41 BMI 30.4 - General well developed, well nourished, no distress - Eyes normal ocular movement - ENT no hearing loss - Neck no masses, trachea midline - Respiratory normal expansion, normal respiratory effort, clear to percussion, clear to auscultation - Cardiovascular Rhythm: regular Heart Sounds: normal: S1, S2 - Abdomen Abdomen: soft, non tender, no guarding, no rigid, no rebound - Integumentary normal turgor small keloid anterior chest - Neurologic no disoriented, no combative - Musculoskeletal normal gait, normal posture - Psychiatric oriented to time, oriented to person, oriented to place, speech is normal, memory intact Breast examination: Right breast: Multiple positional exam no dominant masses or nodules of concern Right axilla: No adenopathy of concern Left breast: Multiple positional exam no dominant masses or nodules of concern Left axilla: No adenopathy of concern Results Mammogram and ultrasound results reviewed Assessment and Plan Assessment: Impression: 1. Radiographic abnormality left breast 2. Ultrasound abnormality left breast 3. Fibrocystic breast disease 4. History of eczema 5. Thyroid disorder 6. Irritable bowel syndrome 7. Osteoarthritis 8. GERD 9. Family history of cancer 10. Keloid anterior chest Plan: 1. Ultrasound-guided biopsy left breast 2. Medical management of medical conditions 3. Follow-up 1 week after ultrasound-guided biopsy CC: DR. Ai Sabillon
== END ==
LOC: WWCWWP 14:01
PROVIDERS: ATTEND Surgery
DX: Z53.9 Procedure and treatment not carried out, unspecified reason (principal)

== ENCOUNTER → 2018-08-27 | Day surgery (SDC) | payer BC ==
[2018-08-27 13:31] VITALS: RESP 16; BMI 69.0
[2018-08-27 15:21] VITALS: BP 105/75; PULSE 81; TEMP 97.7
--- NOTE | 2018-08-27 15:32 | USB ---
EXAMINATION TYPE: US biopsy breast VAD LT DATE OF EXAM: 08/27/2018 CLINICAL HISTORY: R92.8 Abnormal Mammogram. TECHNIQUE: Ultrasound guided core biopsy of left breast. COMPARISON: 06/26/2018 FINDINGS: The procedure of ultrasound guided core biopsy was explained to the patient. Benefits, alternatives, and risks were discussed. An informed consent was then obtained. Preprocedural timeout was performed. The patient was placed in supine positioning for imaging and for the procedure. The overlying skin was prepped and draped in usual sterile fashion. Lidocaine buffered with bicarbonate was used as anesthetic into the skin and subcutaneous tissue up to the subtle 4 mm mass at the 1:00 position in the left breast. Under ultrasound guidance, a 12-gauge vacuum assisted biopsy gun device was used to obtain 5 core samples. Following this, a ribbon-shaped biopsy marker was left at the site of biopsy. Postprocedure mammogram was performed. The marker does not correlate with a subtle mammographic focal asymmetry seen on the prior exam. The patient tolerated the procedure well. Small hematoma developed postbiopsy. Hemostasis was achieved and confirmed with ultrasound postbiopsy. The patient was kept in the radiology department for short stay after the procedure and then discharged home in stable condition. IMPRESSION: Successful, uncomplicated ultrasound guided core biopsy of a subtle 4 mm mass at the 1:00 position in the left breast, full pathology results to follow. The biopsy marker does not correlate with the mammographic subtle focal asymmetry and therefore 6 month follow-up mammogram and ultrasound are recommended if biopsy results are benign. Pathology Results: Benign LEFT BREAST, ULTRASOUND GUIDED CORE BIOPSY: Benign breast with fibrocystic changes. See note. Notes Recommend clinical and imaging study correlation to determine biopsy adequacy. Recommendation Surgical consult of the left breast. Repeat procedure. The mass was difficult to visualize the day of biopsy, discussed with the patient, and it is uncertain that the mass was adequately sampled as the biopsy marker appears 8mm lateral the mass on post biopsy CC. This was palpated by nursing. Discussion with the surgeon was had with decision for needle localization and excision. HANNAH
--- NOTE | 2018-08-28 08:41 | MM ---
Reason for exam: additional evaluation requested from abnormal screening. Last mammogram was performed 2 months ago. History: Patient is postmenopausal. Took hormonal contraceptives for 6 years beginning at age 18. MG Diagnostic Mammo LT Wo CAD CC and LM view(s) were taken of the left breast. Prior study comparison: June 26, 2018, bilateral MG 3d diag mammo w/cad TAVARES. December 05, 2017, bilateral MG 3d screening mammo w/cad. ASSESSMENT: Post procedure mammogram for marker placement RECOMMENDATION: Surgical consult of the left breast. Repeat Procedure. The mass was difficult to visualize the day of biopsy, discussed with the patient, and it is uncertain that the mass was adequately sampled as the biopsy marker appears 8mm lateral the mass on post biopsy CC. This was palpated by nursing. Discussion with the surgeon was had with decision for needle localization and excision. HANNAH
== END | disposition home or self-care (01) ==
LOC: RADUSWWP 13:07
PROVIDERS: ATTEND Surgery
DX: N60.12 Diffuse cystic mastopathy of left breast (principal); Z78.0 Asymptomatic menopausal state; L76.32 Postprocedural hematoma of skin and subcutaneous tissue following other procedure
CPT/HCPCS: 88305; 77065; 19083; A4648; J2001

== ENCOUNTER → 2018-08-30 | Outpatient (CLI) | payer BC ==
[2018-08-30 15:34] VITALS: BP 100/69; PULSE 94; RESP 18; TEMP 98.2; BMI 31.3
--- NOTE | 2018-08-30 16:33 | P.GSHP ---
History of Present Illness H&P Date: 08/30/18 Chief Complaint: Mammographic/ultrasound abnormality left breast There was a 62-year-old white female who on routine screening mammogram on 313 19 was noted to have an area of distortion in the central portion of the left breast in the outer quadrant. The patient subsequently underwent an ultrasound which revealed 3 mm hypoechoic lesion at 1:00. She had an attempted ultrasound- guided core biopsy of this area which revealed only benign breast tissue. Review of the ultrasound findings as well as the mammogram with Dr. Yee reveals that the area of concern on the mammogram was most likely not sampled. It is therefore been recommended that the patient undergo a needle local excisional biopsy of the area of concern. The patient denies any pain in her breast. She has no nipple discharge or skin changes. She has no changes after the biopsy that she is concerned about Family history: Father: Lung cancer Maternal uncle: Stomach cancer Wall history: Menarche: 12 1 miscarriage, breast-fed: Yes, first child born at 23 Menopause: 50 Control pills: 3 years Hormones: Negative Past surgical history: 1. 3 C-sections 2. Tubal ligation 3. Hip replacement 4. Tonsils and adenoids Past medical history: 1. Hypothyroid 2. Vertigo 3. Tendinitis 4. Reflux 5. Hiatal hernia Social history: Smoking: Negative Alcohol: Negative Drugs: Negative - Constitutional Constitutional: Denies chills, Denies fever - EENT Eyes: denies blurred vision, denies pain Ears: deny: decreased hearing, tinnitus - Breasts Breasts: bilateral: as per HPI - Cardiovascular Cardiovascular: Denies chest pain, Denies shortness of breath - Respiratory Respiratory: Denies cough, Denies 7 - Gastrointestinal Comment: reflux, IBS - Genitourinary (Female) Genitourinary: Denies dysuria, Denies hematuria - Menstruation Menstruation: Reports postmenopausal - Musculoskeletal Comment: arthritis - Integumentary Comment: exczema - Neurological Neurological: Denies numbness, Denies weakness - Psychiatric Psychiatric: Reports anxiety, Reports depression - Endocrine Endocrine: Denies fatigue, Denies weight change - Hematologic/Lymphatic Comment: none - Allergic/Immunologic Allergic/Immunologic: Reports seasonal allergies Past Medical History Past Medical History: GERD/Reflux, Hyperlipidemia, Osteoarthritis (OA), Skin Disorder, Thyroid Disorder Additional Past Medical History / Comment(s): hx optical migraines. vertigo. hx kidney stones. eczema. dermatitis. IBS. hiatal hernia. tinnitus History of Any Multi-Drug Resistant Organisms: None Reported Past Surgical History: Adenoidectomy, Section, Joint Replacement, Tonsillectomy, Tubal Ligation Additional Past Surgical History / Comment(s): left hip replacement. C-sections x3. D & C Past Anesthesia/Blood Transfusion Reactions: Previous Problems w/ Anesthesia, Motion Sickness Additional Past Anesthesia/Blood Transfusion Reaction / Comment(s): Ketamine caused involuntary muscle movements and hallucinations. Past Psychological History: Anxiety, Depression Additional Psychological History / Comment(s): Pt lives alone in apt, has 2 porch steps, 1 step into building and 8 steps up to apt. She is independent-no assitive devices used.. She is employed as a behavioral health clinician. She drives a car. hax of depression feels well maintained on her medications. Smoking Status: Never smoker Past Alcohol Use History: None Reported Past Drug Use History: None Reported - Past Family History Father Family Medical History: Cancer, Hypertension Additional Family Medical History / Comment(s): Father of lung cancer at age 69 yrs. Mother Family Medical History: Hypertension Additional Family Medical History / Comment(s): passed from complications of myasthenia gravis Medications and Allergies Home Medications Medication Instructions Recorded Confirmed Type Fish Oil/Dha/Epa [Fish Oil 1,200 1 cap PO HS 05/19/14 08/30/18 History mg Fish Oil] L.acid/L.casei/B.bif/B.raphael/Fos 1 cap PO HS 05/19/14 08/30/18 History [Probiotic Blend Capsule] Multivitamins, Thera [Multivitamin 1 tab PO QAM 05/19/14 08/30/18 History (formulary)] Simvastatin [Zocor] 20 mg PO HS 05/19/14 08/30/18 History Ubidecarenone [Co Q-10] 100 mg PO QAM 05/19/14 08/30/18 History Levothyroxine Sodium [Synthroid] 75 mcg PO QAM 12/21/15 08/30/18 History Vits A,C,E/Lutein/Minerals 1 tab PO HS 12/21/15 08/30/18 History [Ocuvite with Lutein Tablet] Glucosamine/Chondr Rhodes A Sod [Osteo 1 tab PO HS 06/14/16 08/30/18 History Bi-Flex Caplet] Turmeric Root Extract [Turmeric] 500 mg PO HS 06/14/16 08/30/18 History ALPRAZolam [Xanax] 0.25 mg PO DAILY PRN 11/29/16 08/30/18 History Cholecalciferol (Vitamin D3) 2,000 unit PO QAM 11/29/16 08/30/18 History [Vitamin D3] Amitriptyline HCl [Elavil] 25 mg PO HS 01/01/18 08/30/18 History Allergies Allergy/AdvReac Type Severity Reaction Status Date / Time buspirone [From BuSpar] AdvReac Increased Verified 08/30/18 15:34 Anxiety clonazepam [From Klonopin] AdvReac Hallucinati Verified 08/30/18 15:34 ons ketamine AdvReac Hallucinations Verified 08/30/18 15:34 & Muscle Spasms lactose AdvReac Intolerant Verified 08/30/18 15:34 Surgical - Exam Vital Signs Temp Pulse Resp BP Pulse Ox 98.2 F 94 18 100/69 99 08/30/18 15:31 08/30/18 15:31 08/30/18 15:31 08/30/18 15:31 08/30/18 15:31 BMI 31.3 - General well developed, well nourished, no distress - Eyes normal ocular movement - ENT no hearing loss, no congestion - Neck no masses, trachea midline - Respiratory normal respiratory effort, clear to auscultation - Cardiovascular Rhythm: regular Heart Sounds: normal: S1, S2 - Abdomen Abdomen: soft - Integumentary normal turgor - Neurologic no disoriented, no combative - Musculoskeletal normal gait - Psychiatric oriented to time, oriented to person, oriented to place, speech is normal, memory intact breast exam: right breast: Multi-positional exam, no dominant masses or nodules of concern, no adenopathy of concern in the right axilla Left breast: Multi-positional exam ecchymosis at area of core biopsy, small hematoma area of core biopsy, no other dominant masses or nodules of concern Left axilla: No adenopathy of concern Results Mammogram and ultrasound reviewed Assessment and Plan Assessment: Impression: 1. Radiographic abnormality left breast 2. Ultrasound abnormality left breast 3. Fibrocystic breast disease 4. Core biopsy of left breast felt to have not sampled area of concern seen on mammogram this was reviewed with Dr. Yee 5. History of eczema 6. Thyroid disorder 7. Irritable bowel syndrome 8. Osteoarthritis 9. GERD 10. Family history of cancer 11. Acute right anterior chest Plan: 1. After discussion with the patient she has opted for needle local excisional biopsy of concern in the left breast 2. Medical management of medical conditions The patient's radiographs were reviewed with the radiologist. It is felt that the area of concern was not adequately sampled. I discussed this with Micaela and she wishes needle local excisional biopsy to be performed. We have discussed the possibility of watchful waiting and repeating a mammogram in 3 months heart however she states that she would be quite anxious and wishes to have the area sampled. This can benefits of the procedure and discussed including bleeding and infection reaction to the anesthetic and she wishes to proceed. Additionally there is always a risk that the area of concern is not adequately sampled removed have to repeat this in the future and she understands and wishes to proceed. Cc: Dr. Ai Sabillon
== END | disposition home or self-care (01) ==
LOC: WWCWWP 15:06
PROVIDERS: ATTEND Surgery
DX: Z53.9 Procedure and treatment not carried out, unspecified reason (principal)

== ENCOUNTER 2018-10-08 07:23 | Day surgery (SDC) | payer BC ==
[2018-10-02 15:17] VITALS: BMI 30.9
[~2018-10-08 07:23] MED LIST changes: +DEXAMETHASONE SOD PHOSPHATE 10 MG/ML 1 ML VIAL IV ONE; +HEPARIN SODIUM,PORCINE 5,000 UNIT/ML 1 ML VIAL SQ ONE; +ONDANSETRON 4 MG/2 ML VIAL IVP ONE; +Pre Op ABX Message 1 EACH MISC MISCELLANE ONE; +SCOPOLAMINE 1.5MG/72HR PATCH TRANSDERM ONE
[2018-10-08] MEDS ORDERED: ALPRAZolam 0.25 MG TAB PO ONE (07:40)
[2018-10-08] MEDS ORDERED: LACTATED RINGERS 1,000 ML IV ONE (08:07)
[2018-10-08] MEDS ORDERED: LIDOCAINE 1% INJ 10MG/ML (20 ML MDV) SQ ONE ×3 (09:16→10:29)
[2018-10-08] MEDS ORDERED: HEPARIN SODIUM,PORCINE 5,000 UNIT/ML 1 ML VIAL SQ ONE (09:58)
[2018-10-08] MEDS ORDERED: PROPOFOL 10 MG/ML 20 ML VIAL IV ONE (10:05)
[2018-10-08] MEDS ORDERED: fentaNYL (PF) 50 MCG/ML 2 ML AMP ONE (10:05)
[2018-10-08] MEDS ORDERED: MIDAZOLAM 2 MG/2 ML VIAL ONE (10:05)
[2018-10-08] MEDS ORDERED: LIDOCAINE 1% INJ 10MG/ML (20 ML MDV) ONE (10:05)
[2018-10-08] MEDS ORDERED: SUCCINYLCHOLINE CHLORIDE 100 MG/5 ML SYR IV ONE (10:05)
--- NOTE | 2018-10-08 11:15 | P.OP ---
Date of Procedure: 10/08/18 Preoperative Diagnosis: Radiographic abnormality left breast, core biopsy discordant Postoperative Diagnosis: Same Procedure(s) Performed: Left breast needle localization excisional biopsy Anesthesia: local Surgeon: Meme Ortez Estimated Blood Loss (ml): 5 IV fluids (ml): 300 Pathology: other (Breast tissue) Condition: stable Disposition: same day Indications for Procedure: Discordant core biopsy left breast Operative Findings: Dense breast tissue Description of Procedure: The patient is a 62-year-old white female status post left breast core biopsy. Results were discordant. The localization of the area of concern was therefore recommended with excision in the operating room. The localization of the area of concern was performed. The patient was then brought to the operating room. The left breast was prepped and draped following induction of anesthesia. An incision was made and carried down to the shaft of the needle. Surrounding tissue was excised. Hemostasis was attained using the Harmonic scalpel and the electrocautery device. The specimen was removed and painted for orientation. Radiograph of the specimen confirmed the area of concern had been removed. Titanium clips were placed to identify the biopsy cavity. The cavity was irrigated, and after assured that hemostasis was attained deep sutures were placed. The skin was closed using 4-0 Monocryl. All instrument and sponge counts were correct at the end of the case. The patient tolerated the procedure in stable condition.
--- NOTE | 2018-10-08 11:17 | P.DS ---
Providers Attending physician: Meme Ortez Primary care physician: Ai Sabillon Plan - Discharge Summary Discharge Rx Participant: Yes New Discharge Prescriptions: No Action Simvastatin [Zocor] 20 mg PO HS Ubidecarenone [Co Q-10] 100 mg PO QAM Multivitamins, Thera [Multivitamin (formulary)] 1 tab PO QAM L.acid/L.casei/B.bif/B.raphael/Fos [Probiotic Blend Capsule] 1 cap PO HS Fish Oil/Dha/Epa [Fish Oil 1,200 mg Fish Oil] 1 cap PO HS Vits A,C,E/Lutein/Minerals [Ocuvite with Lutein Tablet] 1 tab PO HS Levothyroxine Sodium [Synthroid] 75 mcg PO QAM Glucosamine/Chondr Rhodes A Sod [Osteo Bi-Flex Caplet] 1 tab PO HS Turmeric Root Extract [Turmeric] 500 mg PO HS Cholecalciferol (Vitamin D3) [Vitamin D3] 2,000 unit PO QAM ALPRAZolam [Xanax] 0.25 mg PO DAILY PRN PRN Reason: Anxiety Amitriptyline HCl [Elavil] 25 mg PO HS Omeprazole [PriLOSEC] 20 mg PO AC-BRKFST Discharge Medication List Fish Oil/Dha/Epa [Fish Oil 1,200 mg Fish Oil] 1 cap PO HS 05/19/14 [History] L.acid/L.casei/B.bif/B.raphael/Fos [Probiotic Blend Capsule] 1 cap PO HS 05/19/14 [History] Multivitamins, Thera [Multivitamin (formulary)] 1 tab PO QAM 05/19/14 [History] Simvastatin [Zocor] 20 mg PO HS 05/19/14 [History] Ubidecarenone [Co Q-10] 100 mg PO QAM 05/19/14 [History] Levothyroxine Sodium [Synthroid] 75 mcg PO QAM 12/21/15 [History] Vits A,C,E/Lutein/Minerals [Ocuvite with Lutein Tablet] 1 tab PO HS 12/21/15 [History] Glucosamine/Chondr Rhodes A Sod [Osteo Bi-Flex Caplet] 1 tab PO HS 06/14/16 [History] Turmeric Root Extract [Turmeric] 500 mg PO HS 06/14/16 [History] ALPRAZolam [Xanax] 0.25 mg PO DAILY PRN 11/29/16 [History] Cholecalciferol (Vitamin D3) [Vitamin D3] 2,000 unit PO QAM 11/29/16 [History] Amitriptyline HCl [Elavil] 25 mg PO HS 01/01/18 [History] Omeprazole [PriLOSEC] 20 mg PO AC-BRKFST 10/02/18 [History] Follow up Appointment(s)/Referral(s): Meme Ortez MD [STAFF PHYSICIAN] - 1 Week Activity/Diet/Wound Care/Special Instructions: Do not drive today Patient may shower after 48 hours Discharge Disposition: HOME SELF-CARE
[2018-10-08 11:32] VITALS: TEMP 97
[2018-10-08] MEDS: HYDROmorphone 0.5 MG/0.5 ML SYRINGE IVP PRN ×2 (11:39→11:44)
[2018-10-08] MEDS ORDERED: ONDANSETRON 4 MG/2 ML VIAL IVP ONE (11:41)
--- NOTE | 2018-10-08 11:54 | MM ---
EXAMINATION TYPE: MG pre op needle loc LT, MG surgical specimen LT DATE OF EXAM: 10/08/2018 COMPARISON: Exams dating back to 06/26/2018 CLINICAL HISTORY: Difficult to visualize left breast indeterminate mass on ultrasound of 08/27/2018 with suspicion for an adequate biopsy and needle localization requested. TECHNIQUE: Needle localization with wire placement and surgical excision of area of concern in the left breast. FINDINGS: The procedure of needle localization with wire placement and than surgical excision was explained to the patient. Benefits, alternatives, and risks were discussed. An informed consent was then obtained. Preprocedural timeout was performed. The shortest pathway for procedure was chosen to approach the asymmetry seen just medial to the postprocedural hematoma and ribbon-shaped biopsy marker. Shortest pathway was lateral to medial approach. The overlying skin was prepped and draped in usual sterile fashion. 10 cc of 1% lidocaine was used as anesthetic into the skin and subcutaneous tissue up to the level of area of concern. A 7 cm needle was used. It was placed via a lateral to medial approach under mammographic guidance. Subsequent 90 degrees mammogram show the needle to be in satisfactory position relative to the targeted area. At this point, wire was placed and the needle was withdrawn. The wire was fixed to patient's skin. Images were marked for surgeon. The patient tolerated the procedure well without any immediate complication. The patient was kept in the radiology department for short stay after the procedure and then taken to surgery for surgical excision. Area surrounding the biopsy marker, ribbon-shaped biopsy marker and wire are identified in specimen mammogram. The patient was kept in hospital for short stay after the procedure and then discharged home in stable condition. IMPRESSION: Successful, uncomplicated needle localization with wire placement and surgical excision of asymmetry seen just medial to the ribbon-shaped biopsy marker as well as the ribbon-shaped biopsy marker in the left breast, full pathology results to follow. Pathology Results: High Risk LEFT BREAST, NEEDLE LOCALIZATION EXCISION: Focal atypical ductal hyperplasia (ADH) in a background of fibrocystic changes including microcalcifications adjacent to previous biopsy site. Margins negative for atypical ductal hyperplasia. See note. Recommendation Follow up mammogram of the left breast in 6 months (6 month follow up to reassess the initially questioned sites of focal asymmetry) [facility]PITALAdeola
[2018-10-08] MEDS ORDERED: diphenhydrAMINE 50 MG/ML 1 ML VIAL IVP ONE (11:57)
[2018-10-08 12:21] VITALS: RESP 16
[2018-10-08 14:05] VITALS: BP 112/71; PULSE 65
== END 2018-10-08 14:23 | disposition home or self-care (01) ==
LOC: OR 07:23
PROVIDERS: ATTEND Surgery
DX: N60.12 Diffuse cystic mastopathy of left breast (principal); N60.92 Unspecified benign mammary dysplasia of left breast; E78.5 Hyperlipidemia, unspecified; K21.9 Gastro-esophageal reflux disease without esophagitis; F41.9 Anxiety disorder, unspecified; F32.9 Major depressive disorder, single episode, unspecified; E03.9 Hypothyroidism, unspecified; M19.90 Unspecified osteoarthritis, unspecified site; K58.9 Irritable bowel syndrome, unspecified; Z88.5 Allergy status to narcotic agent; Z88.8 Allergy status to other drugs, medicaments and biological substances; Z79.890 Hormone replacement therapy; Z79.899 Other long term (current) drug therapy; Z86.11 Personal history of tuberculosis; Z96.642 Presence of left artificial hip joint
CPT/HCPCS: 88307; 76098; 19125; 19281; J2250; J1200; J1644; J1100; J2405; J2001; J3010; J0330; J2704; J1170

== ENCOUNTER → 2018-10-24 | Outpatient (CLI) | payer BC ==
[2018-10-24 11:06] VITALS: BP 117/80; PULSE 98; RESP 18; TEMP 97.8; BMI 30.8
--- NOTE | 2018-10-24 11:40 | P.PN ---
Subjective Progress Note Date: 10/24/18 There is a 62-year-old white female status post left breast needle [place]al [place] [id number]. Her pathology showed focal atypical ductal hyperplasia in a background of fibrocystic changes. The margins were negative for atypical ductal hyperplasia. The patient has no complaints status post bio psy. Objective - Vital Signs Vital signs: Vital Signs Temp 97.8 F 10/24/18 11:03 Pulse 98 10/24/18 11:03 Resp 18 10/24/18 11:03 BP 117/80 10/24/18 11:03 Pulse Ox 98 10/24/18 11:03 Intake & Output 10/23/18 10/24/18 10/24/18 18:59 06:59 18:59 Weight 89.358 kg - Constitutional General appearance: Present: average body habitus - EENT Eyes: Present: EOMI ENT: Present: hearing grossly normal - Neck Neck: Present: normal ROM - Respiratory Respiratory: bilateral: CTA - Cardiovascular Rhythm: regular Heart sounds: normal: S1, S2 - Psychiatric Psychiatric: Present: A&O x's 3, appropriate affect, intact judgment & insight - Additional findings Additional findings: Incision left breast: Clean and dry no evidence of any infection Assessment and Plan Assessment: Impression: 1. Patient status post left breast needle local excisional biopsy, pathology revealed atypical hyperplasia 2. Mammogram was reviewed with Dr. Magallon and the recommendation is for repeat 6 month follow-up mammogram of the left breast Plan: 1. Left breast mammogram in 6 months with physician exam at that time cc: DR. Sabillon
== END | disposition home or self-care (01) ==
LOC: WWCWWP 10:31
PROVIDERS: ATTEND Surgery
DX: Z53.9 Procedure and treatment not carried out, unspecified reason (principal)

== ENCOUNTER → 2018-11-01 | Outpatient (CLI) | payer BC ==
--- NOTE | 2018-11-01 09:12 | CT ---
EXAMINATION TYPE: CT abdomen pelvis w con DATE OF EXAM: 11/01/2018 COMPARISON: 04/13/2017 HISTORY: R10.84 generalized abdominal pain CONTRAST: CT scan of the abdomen and pelvis is performed with Oral Contrast and with IV Contrast, patient injec yassine with 100 mL of Isovue 300. FINDINGS: LUNG BASES-: No visible nodule. No infiltrate. LIVER/GB: No calcified gallstones. No space occupying hepatic lesion. Biliary tree is of normal ca liber. PANCREAS: No inflammation. No distinct mass. SPLEEN: No splenic enlargement. No lesion seen. ADRENALS: No nodule. No thickening. KIDNEYS/BLADDER: No hydronephrosis. No nephrolithiasis. No distinct renal mass. Urinary bladder g rossly unremarkable. BOWEL: Normal appendix. Normal bowel caliber. No inflammation. Moderate fecal stasis noted. GENITAL ORGANS: No gross abnormality. LYMPH NODES: No greater than 1cm abdominal or pelvic lymph nodes are appreciated. AORTA: No significant abnormality. OSSEOUS STRUCTURES: No significant abnormality is seen. OTHER: No significant additional abnormality is seen. IMPRESSION: 1. Moderate fecal stasis. Otherwise unremarkable study.
== END | disposition home or self-care (01) ==
LOC: RADCTMAIN 07:04
PROVIDERS: ATTEND Family Medicine
DX: R19.5 Other fecal abnormalities (principal)
CPT/HCPCS: 74177; Q9967 ×2

== ENCOUNTER → 2019-09-16 | Outpatient (CLI) | payer BC ==
--- NOTE | 2019-09-16 10:35 | MM ---
Reason for exam: additional evaluation requested from prior study. Last mammogram was performed 1 year and 1 month ago. History: Patient is postmenopausal and has history of high-risk lesion on a previous biopsy at age 62. High risk MG pre op needle loc LT of the left breast, October 08, 2018. Benign US biopsy breast VAD LT of the left breast, August 27, 2018. Took hormonal contraceptives for 6 years beginning at age 18. Physical Findings: Nurse did not find any significant physical abnormalities on exam. MG 3D Diag Mammo W/Cad TAVARES Bilateral CC and MLO view(s) were taken. Prior study comparison: August 27, 2018, left breast MG diagnostic mammo LT wo CAD. June 26, 2018, bilateral MG 3d diag mammo w/cad TAVARES. The breast tissue is heterogeneously dense. This may lower the sensitivity of mammography. No suspicious abnormality. Left post therapy change. These results were verbally communicated with the patient and result sheet given to the patient on 09/16/19. ASSESSMENT: Benign, BI-RAD 2 RECOMMENDATION: Routine screening mammogram of both breasts in 1 year.
== END | disposition home or self-care (01) ==
LOC: RADMAMWWP 08:57
PROVIDERS: ATTEND Surgery
DX: R92.8 Other abnormal and inconclusive findings on diagnostic imaging of breast (principal)
CPT/HCPCS: 77062; 77066

== ENCOUNTER → 2019-10-03 | Outpatient (CLI) | payer BC ==
[2019-10-03 14:36] VITALS: BP 139/78; PULSE 91; RESP 18; TEMP 99
--- NOTE | 2019-10-03 14:58 | P.PN ---
Subjective Progress Note Date: 10/03/19 Principal diagnosis: history of atypical hyperplasia of the left breast There was a 62-year-old white female who on routine screening mammogram on 313 19 was noted to have an area of distortion in the central portion of the left breast in the outer quadrant. The patient subsequently underwent an ultrasound which revealed 3 mm hypoechoic lesion at 1:00. She had an attempted ultrasound- guided core biopsy of this area which revealed only benign breast tissue. Review of the ultrasound findings as well as the mammogram with Dr. Yee reveals that the area of concern on the mammogram was most likely not sampled. It is therefore been recommended that the patient undergo a needle local excisional biopsy of the area of concern. She underwent a needle localization and excisional biopsy on [id number]. Her pathology showed some focal atypical ductal hyperplasia. The margins were negative for atypical hyperplasia. The patient most recently had a bilateral mammogram performed on . This was benign BIRADS 2. The patient has not been she is concerned about in her breast at this time. She is not complaining of any lumps masses nodules or pain in the breasts. No complaints of any nipple discharge or changes. Julissa Risk analysis reveals a 5 year breast cancer risk of 3.2% versus 1.9% for average 63-year-old Lifetime risk 13.3% versus 8.3% for average 63-year-old Family history: Father: Lung cancer Maternal uncle: Stomach cancer Hormonal history: Menarche: 12 1 miscarriage, breast-fed: Yes, first child born at 23 Menopause: 50 Control pills: 3 years Hormones: Negative Past surgical history: 1. 3 C-sections 2. Tubal ligation 3. Hip replacement 4. Tonsils and adenoids 5. left breast biopsy Past medical history: 1. Hypothyroid 2. Vertigo 3. Tendinitis 4. Reflux 5. Hiatal hernia Social history: Smoking: Negative Alcohol: Negative Drugs: Negative - Constitutional Constitutional: Denies chills, Denies fever - EENT Eyes: denies blurred vision, denies pain Ears: deny: decreased hearing, tinnitus - Breasts Breasts: bilateral: as per HPI - Cardiovascular Cardiovascular: Denies chest pain, Denies shortness of breath - Respiratory Respiratory: Denies cough - Gastrointestinal Comment: reflux, IBS - Genitourinary (Female) Genitourinary: Denies dysuria, Denies hematuria - Menstruation Menstruation: Reports postmenopausal - Musculoskeletal Comment: arthritis - Integumentary Comment: exczema - Neurological Neurological: Denies numbness, Denies weakness - Psychiatric Psychiatric: Reports anxiety, Reports depression - Endocrine Endocrine: Denies fatigue, Denies weight change - Hematologic/Lymphatic Comment: none - Allergic/Immunologic Allergic/Immunologic: Reports seasonal allergies Objective - Vital Signs Vital signs: Vital Signs Temp 99.0 F 10/03/19 14:33 Pulse 91 10/03/19 14:33 Resp 18 10/03/19 14:33 BP 139/78 10/03/19 14:33 Pulse Ox 98 10/03/19 14:33 Intake & Output 10/02/19 10/03/19 10/03/19 18:59 06:59 18:59 Weight 97.522 kg - Constitutional Constitutional Comment(s): BMI 33.7 General appearance: Present: average body habitus - EENT Eyes: Present: EOMI ENT: Present: hearing grossly normal - Neck Neck: Present: normal ROM - Respiratory Respiratory: bilateral: CTA - Cardiovascular Rhythm: regular Heart sounds: normal: S1, S2 - Gastrointestinal General gastrointestinal: Present: normal bowel sounds, soft - Integumentary Integumentary: Present: normal turgor - Musculoskeletal Musculoskeletal: Present: gait normal - Psychiatric Psychiatric: Present: A&O x's 3, appropriate affect, intact judgment & insight - Additional findings Additional findings: Breast exam: BRA: 44D inspection: ptosis grade 3 bilateral, well healed scar left breast; left breast slightly larger than right breast palpation: right breast: Multiple positional exam no dominant masses or nodules of concern in the right breast, fibrocystic changes Right axilla: No adenopathy of concern {: Multiple positional exam no dominant masses or nodules of concern, well- healed scar from prior open biopsy Left axilla: No adenopathy of concern Assessment and Plan Assessment: Impression: 1. Elevated risk of breast cancer based on DL brisk analysis 2. Fibrocystic breast changes 3. Prior biopsy revealing atypia in the left breast been followed closely due to 4. Recent bilateral mammogram benign BIRADS 2 and [id number] Plan: 1. Patient given the option of seen medical oncologist for chemoprevention she chose not to pursue this 2. Repeat bilateral mammogram in 1 year 3. Follow examination in one year Cc: Dr. Sabillon Encounter 20 minutes, greater than 50% of time in planning and counseling
== END | disposition home or self-care (01) ==
LOC: WWCWWP 14:15
PROVIDERS: ATTEND Surgery
DX: Z53.9 Procedure and treatment not carried out, unspecified reason (principal)

== ENCOUNTER → 2019-11-05 | Outpatient (CLI) | payer BC ==
--- NOTE | 2019-11-05 21:51 | CT ---
EXAMINATION TYPE: CT abdomen wo con DATE OF EXAM: 11/05/2019 HISTORY: Chronic kidney disease, hepatomegaly. C/o abdominal bloating/pain nausea x several months. O ral contrast only CT DLP: 996.80 mGycm. Automated Exposure Control for Dose Reduction was Utilized. TECHNIQUE: CT scan of the abdomen is performed with oral but without IV contrast. Technologist daren elmore includes entire pelvis. COMPARISON: CT abdomen and pelvis November 01, 2018 and older CTs. FINDINGS: Within the limitations of a non-contrast study, the following observations are made. LUNG BASES: Mild to moderate bibasilar linear scarring and atelectasis slightly more prominent from p rior studies. LIVER/GB: Liver felt normal in size. Density isodense to slightly hyperdense relative to spleen PANCREAS: Focal moderate generalized atrophy of the uncinate process shows interval progression from most recent CT. Persistent mild adjacent fat stranding and prominent but subcentimeter lymph nodes. SPLEEN: No significant abnormality is seen. ADRENALS: No significant abnormality is seen. KIDNEYS: No renal stones or hydronephrosis is seen bilaterally. BOWEL: Oral contrast does not reach the level of terminal ileum making evaluation of distal bowel mario ewhat suboptimal. No suspicious small or large bowel dilatation. High positioning of cecum into the r ight upper quadrant axial image 39. GENITAL ORGANS: Anteverted uterus. Few scattered pelvic phleboliths. LYMPH NODES: No greater than 1cm abdominal or pelvic lymph nodes are appreciated. OSSEOUS STRUCTURES: Metallic hardware from left hip arthroplasty causes streak artifact limiting eval uation of pelvic structures. Moderate anterior spurring in the lower thoracic spine. OTHER: No significant additional abnormality is seen. IMPRESSION: 1. No hepatomegaly or suspicious focal intrahepatic masses. 2. Renal sizes remain symmetric and felt within normal limits. 3. No bowel obstruction. 4. Mild jose mesentery appearance near level of uncinate process of pancreas.
== END | disposition home or self-care (01) ==
LOC: RADCTMAIN 18:13
PROVIDERS: ATTEND Nurse Practitioner Family
DX: N18.9 Chronic kidney disease, unspecified (principal); R16.0 Hepatomegaly, not elsewhere classified; Z88.4 Allergy status to anesthetic agent
CPT/HCPCS: 74150; Q9967

== ENCOUNTER → 2020-08-26 | Outpatient (CLI) | payer BC ==
--- NOTE | 2020-08-26 18:58 | CONS ---
CONSULTATION DATE OF SERVICE: 08/26/2020 This 64-year-old lady has been evaluated in the sleep center for snoring and possible obstructive sleep apnea-hypopnea syndrome. HISTORY OF PRESENT ILLNESS/SLEEP-WAKE EVALUATION: This patient was diagnosed with obstructive sleep apnea about 15 years ago in another institution. She was started on treatment with CPAP, but then for different reasons, including absence of insurance, treatment was stopped. At present her sleep schedule is from 11:30 p.m. to 7 or 8 a.m. on weekdays and from 11:30 p.m. until 9 or 9:30 a.m. on weekends. No problems with falling asleep. No TV in bedroom. She sleeps in different positions. She wakes up from sleep up to 4 times with 2 episodes of nocturia. Positive history of sleep paralysis and nightmares. The patient also wakes up from sleep with panic attacks, palpitations, gasping for air. In the morning the patient wakes up tired, worries about her sleep, has episodes of depression and anxiety. [place] Sleepiness Scale is 4. PAST MEDICAL HISTORY: Positive for hyperlipidemia, sinus problems, acid reflux, hypothyroidism, arthritis, depression, anxiety. PAST SURGICAL HISTORY: Left hip replacement, C-sections x3. MEDICATIONS: 1. Amitriptyline 10 mg once a day in the evening. 2. Levothyroxine 75 mcg once a day. 3. 10 mg twice a day. 4. Omeprazole 20 mg once a day. 5. Simvastatin 20 mg once a day. 6. Zyrtec 10 mg once a day. 7. Furosemide 20 mg as needed. 8. Xanax 0.25 mg as needed. FAMILY HISTORY: Hypertension. REVIEW OF SYSTEMS: No fevers. No double vision. No recent chest pain. No shortness of breath. No abdominal pain. No bleeding episodes. No blood in the urine. No seizure episodes. Multiple awakenings from sleep, episodes of sleep paralysis, nightmares. PHYSICAL EXAMINATION: GENERAL: A pleasant lady without distress. VITAL SIGNS: BP 122/86, HR 102, RR 12, height 5 feet 5 inches, weight 213.6, body mass index 35.4, temperature 97.1. Oxygen saturation at room air 95%. HEENT: PERRLA, EOMI. Evaluation of oropharynx showed tongue protrudes midline. Extremely low position of soft palate. Mallampati IV. NECK: Supple. No JVD. Thyroid is not palpable. Neck is 16 inches in circumference. LUNGS: Clear to percussion and to auscultation. Good air exchange. No wheezing or rhonchi. HEART: S1, S2 regular. No murmurs, gallops or rubs. ABDOMEN: Slightly obese. EXTREMITIES: No clubbing or cyanosis. SOFTWARE INSTALLATION ENGINEER: Awake, alert, and oriented X3. Cranial nerves 2 to 7 intact. There is no fasciculation or atrophy. noted. No focal deficits observed. IMPRESSION: 1. Snoring, multiple awakenings from sleep with nocturia, extremely low position of soft palate, Mallampati IV, wide neck for a female, 16 inches in circumference; obstructive sleep apnea-hypopnea syndrome. 2. Obesity. BMI 35.4. 3. History of nightmares. 4. History of sleep paralysis. 5. Hyperlipidemia. 6. Arthritis. 7. Sinus problems. 8. Acid reflux. 9. Hypothyroidism. 10.Depression. 11.Anxiety. 12.Status post left hip replacement. 13.Status post C-sections x3. PLAN: 1. Polysomnography for evaluation of patient's breathing during sleep. 2. CPAP/BiPAP titration if sleep study confirms obstructive sleep apnea-hypopnea syndrome. 3. Preferable position during sleep on the side. 4. No driving if patient feels any sleepiness. 5. I will see patient for follow up visit to explain results of testing and following plan. Thank you very much for referring this patient for consultation. Sincerely, Luke Chacko MD, PhD, FAASM Diplomat of [place] [employer] [place] [employer] Supervisor [employer] [facility] [place] MMODL / TIFFANIEN: [phone] /
== END ==
LOC: SLEEP 15:46
PROVIDERS: ATTEND Internal Medicine
DX: G47.33 Obstructive sleep apnea (adult) (pediatric) (principal); E66.9 Obesity, unspecified; F51.5 Nightmare disorder; G47.53 Recurrent isolated sleep paralysis; E78.5 Hyperlipidemia, unspecified; M19.90 Unspecified osteoarthritis, unspecified site; J34.9 Unspecified disorder of nose and nasal sinuses; K21.9 Gastro-esophageal reflux disease without esophagitis; F32.9 Major depressive disorder, single episode, unspecified; F41.9 Anxiety disorder, unspecified; Z96.642 Presence of left artificial hip joint; Z68.35 Body mass index [BMI] 35.0-35.9, adult; Z98.890 Other specified postprocedural states
CPT/HCPCS: 99211

== ENCOUNTER → 2020-09-20 | Outpatient (CLI) | payer BC ==
--- NOTE | 2020-09-22 11:03 | MM ---
Reason for exam: screening (asymptomatic). Last mammogram was performed 1 year ago. History: Patient is postmenopausal and has history of high-risk lesion on a previous biopsy at age 62. High risk MG pre op needle loc LT of the left breast, October 08, 2018. Benign US biopsy breast VAD LT of the left breast, August 27, 2018. Took hormonal contraceptives for 6 years beginning at age 18. Physical Findings: A clinical breast exam by your physician is recommended on an annual basis and results should be correlated with mammographic findings. MG 3D Screening Mammo W/Cad Bilateral CC and MLO view(s) were taken. Prior study comparison: September 16, 2019, bilateral MG 3d diag mammo w/cad [facility]. August 27, 2018, left breast MG diagnostic mammo LT wo CAD. There are scattered fibroglandular densities. Post surgical changes left breast. No significant changes when compared with prior studies. ASSESSMENT: Benign, BI-RAD 2 RECOMMENDATION: Routine screening mammogram of both breasts in 1 year.
== END | disposition home or self-care (01) ==
LOC: RADMAMWWP 09:06
PROVIDERS: ATTEND Surgery
DX: Z12.31 Encounter for screening mammogram for malignant neoplasm of breast (principal); Z78.0 Asymptomatic menopausal state
CPT/HCPCS: 77063; 77067

== ENCOUNTER → 2020-09-23 | Outpatient (CLI) | payer BC ==
[2020-09-23 10:00] VITALS: BP 114/80; PULSE 84; RESP 18; TEMP 98.4
--- NOTE | 2020-09-23 10:17 | P.PN ---
Subjective Progress Note Date: 09/23/20 Principal diagnosis: Atypical hyperplasia left breast history of atypical hyperplasia of the left breast This is a 64-year-old white female who on routine screening mammogram on 313 19 was noted to have an area of distortion in the central portion of the left breast in the outer quadrant. The patient subsequently underwent an ultrasound which revealed 3 mm hypoechoic lesion at 1:00. She had an attempted ultrasound- guided core biopsy of this area which revealed only benign breast tissue. Review of the ultrasound findings as well as the mammogram with Dr. Yee reveals that the area of concern on the mammogram was most likely not sampled. It is therefore been recommended that the patient undergo a needle local excisional biopsy of the area of concern. She underwent a needle localization and excisional biopsy on . Her pathology showed some focal atypical ductal hyperplasia. The margins were negative for atypical hyperplasia. The patient has no lesions in her breasts for which she is concerned at this time. She is not complaining of any lumps masses nodules or pain in the breasts. No complaints of any nipple discharge or changes. 09-20-20 mammogram bilateral benign BIRAD 2 Julissa Risk analysis reveals a 5 year breast cancer risk of 3.3% versus 2% for average 63-year-old Lifetime risk 12.9% versus 8.1% for average 63-year-old Family history: Father: Lung cancer Maternal uncle: Stomach cancer Hormonal history: Menarche: 12 1 miscarriage, breast-fed: Yes, first child born at 23 Menopause: 50 Control pills: 3 years Hormones: Negative Past surgical history: 1. 3 C-sections 2. Tubal ligation 3. Hip replacement 4. Tonsils and adenoids 5. left breast biopsy 6. Cholecystectomy Past medical history: 1. Hypothyroid 2. Vertigo 3. Tendinitis 4. Reflux 5. Hiatal hernia Social history: Smoking: Negative Alcohol: Negative Drugs: Negative - Constitutional Constitutional: Denies chills, Denies fever - EENT Eyes: denies blurred vision, denies pain Ears: deny: decreased hearing, tinnitus - Breasts Breasts: bilateral: as per HPI - Cardiovascular Cardiovascular: Denies chest pain, Denies shortness of breath - Respiratory Respiratory: Denies cough - Gastrointestinal Comment: reflux, IBS - Genitourinary (Female) Genitourinary: Denies dysuria, Denies hematuria - Menstruation Menstruation: Reports postmenopausal - Musculoskeletal Comment: arthritis - Integumentary Comment: exczema - Neurological Neurological: Denies numbness, Denies weakness - Psychiatric Psychiatric: Reports anxiety, Reports depression - Endocrine Endocrine: Denies fatigue, Denies weight change - Hematologic/Lymphatic Comment: none - Allergic/Immunologic Allergic/Immunologic: Reports seasonal allergies Objective - Vital Signs Vital signs: Vital Signs Temp 98.4 F 09/23/20 09:57 Pulse 84 09/23/20 09:57 Resp 18 09/23/20 09:57 BP 114/80 09/23/20 09:57 Pulse Ox 97 09/23/20 09:57 Intake & Output 09/22/20 09/23/20 09/23/20 18:59 06:59 18:59 Weight 93.894 kg - Exam BMI 34.4 - Constitutional General appearance: Present: cooperative - EENT Eyes: Present: EOMI ENT: Present: hearing grossly normal - Neck Neck: Present: normal ROM - Respiratory Respiratory: bilateral: CTA - Cardiovascular Rhythm: regular Heart sounds: normal: S1, S2 - Integumentary Integumentary: Present: normal turgor - Musculoskeletal Musculoskeletal: Present: gait normal - Psychiatric Psychiatric: Present: A&O x's 3, appropriate affect, intact judgment & insight - Additional findings Additional findings: Breast examination: BRA: 44 DT Inspection: Bilateral grade 3 ptosis Palpation: Right breast: Multi-positional exam fibrocystic changes, no dominant masses or nodules of concern Right axilla: No adenopathy of concern Left breast: Multi-positional exam fibrocystic changes no dominant masses or nodules of concern Left axilla: No adenopathy of concern line under each breast there is some evidence of fungal infection Assessment and Plan Assessment: Impression: 1. Hypothyroid 2. Vertigo 3. Tendinitis 4. Reflux 5. Hiatal hernia 6. Fungal infection under each breast 7. Fibrocystic breast changes 8. Bilateral mammogram 6721 BIRADS 2 9. Elevated breast cancer risk as per Julissa model evaluation/patient has been given the option of chemoprevention and wishes to wait at this time Plan: 1. Nystatin under the breast 2. Call if any questions or concerns 3. Bilateral mammogram in 1 year with physician exam at that time CC: Dr. Sabillon,
== END ==
LOC: WWCWWP 09:53
PROVIDERS: ATTEND Surgery
DX: N60.11 Diffuse cystic mastopathy of right breast (principal); N60.12 Diffuse cystic mastopathy of left breast; E03.9 Hypothyroidism, unspecified; K21.9 Gastro-esophageal reflux disease without esophagitis; K44.9 Diaphragmatic hernia without obstruction or gangrene; R42 Dizziness and giddiness; M77.9 Enthesopathy, unspecified; B36.8 Other specified superficial mycoses; Z91.011 Allergy to milk products; Z88.8 Allergy status to other drugs, medicaments and biological substances; Z88.4 Allergy status to anesthetic agent

== ENCOUNTER → 2020-11-24 | Outpatient (CLI) | payer BC ==
--- NOTE | 2020-11-24 16:52 | BD ---
EXAMINATION TYPE: Axial Bone Density DATE OF EXAM: 11/24/2020 COMPARISON: 12.05.2017 CLINICAL HISTORY: 64 YR OLD FEMALE.....ICD-10 CODE Z78.0 POST MENOPAUSAL Height: 64.8 Weight: 205 FRAX RISK QUESTIONS: NOTHING TO NOTE HERE RISK FACTORS HISTORY OF: History of Wrist Fracture: LT WRIST AT AGE 10 Surgery to LT HIP....THR Postmenopausal woman: YES, AT AGE 50 Hyperparathyroidism: NO Adrenal Insufficiency: NO MEDICATIONS: Thyroid Medications: YES, SYNTHROID FOR ABOUT 15 YRS Osteoporosis Medications: YES, IN THE PAST ONLY, NONE NOW Additional Medications: CYMBALTA, REFLUX, STATIN FOR CHOLESTEROL, VIT D, NSAID Additional History: OSTEOARTHRITIS, DEPRESSION, CHOLESTEROL, REFLUX EXAM MEASUREMENTS: Bone mineral densitometry was performed using the [employer] System. Bone mineral density as measured about the Lumbar spine is: ----- L1-L4(G/cm2): 1.078 T Score Values are as follows: ----- L1: -2.3 ----- L2: -0.9 ----- L3: -0.3 ----- L4: -0.3 ----- L1-L4: -0.9 Bone mineral density has: Decreased -2.8% since study of: 12.05.2017 Bone mineral density about the R hip (g/cm2): 0.775 T Score values are as follows: -----R Neck: -2.5 -----R Total: -1.8 Bone mineral density has: Decreased -2.5% since study of: 12.05.2017 FRAX%s: THERE IS A 12.1% CHANCE FOR A MAJOR OSTEOPOROTIC FX AND A 2.4% FOR HIP......PROBABILITY FOR FX IN 10 YRS TIME IMPRESSION: Osteoporosis (T Score less than -2.5). There is increased fracture risk and therapy is usually indicated based on age. Re-Screen 1-2 years. NOTE: T-SCORE=SD OF THE YOUNG ADULT MEAN.
== END | disposition home or self-care (01) ==
LOC: RADBDWWP 08:05
PROVIDERS: ATTEND Family Medicine
DX: M81.0 Age-related osteoporosis without current pathological fracture (principal)
CPT/HCPCS: 77080

== ENCOUNTER → 2021-10-18 | Outpatient (CLI) | payer BC ==
--- NOTE | 2021-10-19 09:23 | MM ---
Reason for Exam: Screening (asymptomatic). Last mammogram was performed 1 year(s) and 1 month(s) ago. Patient History: Menarche at age 12. First Full-Term at age 23. Postmenopausal. Patient has history of breast feeding. Hormonal Contraceptives for 6 years from age 18 until age 46. 10/08/2018, High risk Core Biopsy on the left side. 08/27/2018, Benign Core Biopsy on the left side. Risk Values: Julissa 5 year model risk: 2.2%. NCI Lifetime model risk: 8.3%. Prior Study Comparison: 12/05/2017 Bilateral Screening Mammogram, [facility]. 06/26/2018 Bilateral Diagnostic Mammogram, [facility]. 08/27/2018 Left Diagnostic Mammogram, [facility]. 09/16/2019 Bilateral Diagnostic Mammogram, [facility]. 09/20/2020 Bilateral Screening Mammogram, [facility]. Tissue Density: There are scattered fibroglandular densities. Findings: Analyzed By CAD. Postsurgical change to the left breast upper outer aspect posteriorly is redemonstrated There is no suspicious group of microcalcifications or new suspicious mass in either breast. Overall Assessment: Benign, BI-RAD 2 Management: Screening Mammogram of both breasts in 1 year. A clinical breast exam by your physician is recommended on an annual basis and results should be correlated with mammographic findings. Electronically signed and approved by: Curtis Rivas M.D.
== END | disposition home or self-care (01) ==
LOC: RADMAMWWP 07:41
PROVIDERS: ATTEND Surgery
DX: Z12.31 Encounter for screening mammogram for malignant neoplasm of breast (principal); Z78.0 Asymptomatic menopausal state
CPT/HCPCS: 77063; 77067

== ENCOUNTER → 2021-10-28 | Outpatient (CLI) | payer BC ==
[2021-10-28 08:53] VITALS: BP 124/87; PULSE 100; RESP 16; TEMP 98.1
--- NOTE | 2021-10-28 09:04 | P.PN ---
Subjective Progress Note Date: 10/28/21 Principal diagnosis: atypical hyperplasia left breast history of atypical hyperplasia of the left breast This is a 65-year-old white female who on routine screening mammogram on 313 19 was noted to have an area of distortion in the central portion of the left breast in the outer quadrant. The patient subsequently underwent an ultrasound which revealed 3 mm hypoechoic lesion at 1:00. She had an attempted ultrasound- guided core biopsy of this area which revealed only benign breast tissue. Review of the ultrasound findings as well as the mammogram with Dr. Yee reveals that the area of concern on the mammogram was most likely not sampled. It is therefore been recommended that the patient undergo a needle local excisional biopsy of the area of concern. [place] [address]. Her pathology showed some focal atypical ductal hyperplasia. The margins were negative for atypical hyperplasia. The patient has no lesions in her breasts for which she is concerned at this time. She is not complaining of any lumps masses nodules or pain in the breasts. No complaints of any nipple discharge or changes. She had a bilateral mammogram and 7522 which was benign BIRADS 2. Julissa Risk analysis reveals a 5 year breast cancer risk of 2.2% versus 2% for average 63-year-old Lifetime risk 8.3% versus 8.1% for average 63-year-old Family history: Father: Lung cancer Maternal uncle: Stomach cancer Hormonal history: Menarche: 12 1 miscarriage, breast-fed: Yes, first child born at 23 Menopause: 50 Control pills: 3 years Hormones: Negative Past surgical history: 1. 3 C-sections 2. Tubal ligation 3. Hip replacement 4. Tonsils and adenoids 5. left breast biopsy 6. Cholecystectomy Past medical history: 1. Hypothyroid 2. Vertigo 3. Tendinitis 4. Reflux 5. Hiatal hernia Social history: Smoking: Negative Alcohol: Negative Drugs: Negative - Constitutional Constitutional: Denies chills, Denies fever - EENT Eyes: denies blurred vision, denies pain Ears: deny: decreased hearing, tinnitus - Breasts Breasts: bilateral: as per HPI - Cardiovascular Cardiovascular: Denies chest pain, Denies shortness of breath - Respiratory Respiratory: Denies cough - Gastrointestinal Comment: reflux, IBS - Genitourinary (Female) Genitourinary: Denies dysuria, Denies hematuria - Menstruation Menstruation: Reports postmenopausal - Musculoskeletal Comment: arthritis - Integumentary Comment: exczema - Neurological Neurological: Denies numbness, Denies weakness - Psychiatric Psychiatric: Reports anxiety, Reports depression - Endocrine Endocrine: Denies fatigue, Denies weight change - Hematologic/Lymphatic Comment: none - Allergic/Immunologic Allergic/Immunologic: Reports seasonal allergies Objective - Vital Signs Vital signs: Vital Signs Temp 98.1 F 10/28/21 08:50 Pulse 100 10/28/21 08:50 Resp 16 10/28/21 08:50 BP 124/87 10/28/21 08:50 Pulse Ox 96 10/28/21 08:50 FiO2 Intake & Output 10/27/21 10/28/21 10/28/21 18:59 06:59 18:59 Weight 99.79 kg - Exam BMI: 34.5 - Constitutional General appearance: Present: cooperative - EENT Eyes: Present: EOMI ENT: Present: hearing grossly normal - Respiratory Respiratory: bilateral: CTA - Cardiovascular Rhythm: regular Heart sounds: normal: S1, S2 - Integumentary Integumentary: Present: normal turgor - Musculoskeletal Musculoskeletal: Present: gait normal - Psychiatric Psychiatric: Present: A&O x's 3, appropriate affect, intact judgment & insight - Additional findings Additional findings: Breast Exam: BRA: 44DD Inspection: Bilateral fungal infection under the breast, grade 3 ptosis bilateral Palpation: Right breast: Multiple positional exam fibrocystic changes no dominant masses or nodules of concern Right axilla: No adenopathy of concern Left breast: Multi-positional exam fibrocystic changes no dominant masses or nodules of concern, well-healed scar from prior surgery Left axilla: No adenopathy of concern Assessment and Plan Assessment: Impression: Bilateral mammograms 7522 benign BIRADS 2 Fibrocystic changes Fungal infection under the breast Plan: Nystatin cream Bilateral mammogram in 1 year with physician exam at that time Follow up sooner any questions or concerns Cc: Dr. Lei
== END ==
LOC: WWCWWP 08:35
PROVIDERS: ATTEND Surgery
DX: N60.11 Diffuse cystic mastopathy of right breast (principal); N60.12 Diffuse cystic mastopathy of left breast; B36.8 Other specified superficial mycoses; E03.9 Hypothyroidism, unspecified; Z88.4 Allergy status to anesthetic agent; Z88.8 Allergy status to other drugs, medicaments and biological substances; Z91.011 Allergy to milk products

== ENCOUNTER → 2022-09-06 | Outpatient (CLI) | payer BC ==
--- NOTE | 2022-09-07 08:19 | CT ---
EXAMINATION TYPE: CT abdomen pelvis w con CT DLP: 1617.70 mGycm, Automated exposure control for dose reduction was used. DATE OF EXAM: 09/06/2022 5:38 PM COMPARISON: CT abdomen pelvis most recent from 11/08/2019 CLINICAL INDICATION:Female, 66 years old with history of R10.84; ABDOMINAL PAIN, BLOATING AND CHANGE IN BOWEL HABITS TECHNIQUE: Axial CT of the abdomen and pelvis. Sagittal and coronal reformats were created on a [employer] workstation. Contrast used:100 mL of Isovue 300 with IV Contrast, Oral contrast used: with Oral Contrast FINDINGS: LOWER CHEST: Unremarkable ABDOMEN LIVER: Unremarkable GALLBLADDER AND BILE DUCTS: The gallbladder is surgically absent. PANCREAS: Unremarkable. SPLEEN: Unremarkable. ADRENAL GLANDS: Unremarkable. KIDNEYS AND URETERS: No evidence of hydronephrosis or renal calculus. The ureters are unremarkable. PELVIS BLADDER: Unremarkable REPRODUCTIVE: Unremarkable. ABDOMEN & PELVIS STOMACH AND BOWEL: No evidence of bowel obstruction. Second portion duodenal diverticulum. The colon is relatively nondistended and the distal portion. No bowel wall thickening. PERITONEUM/RETROPERITONEUM: No evidence of pneumoperitoneum or free fluid. VASCULATURE: No evidence of aortic aneurysm. MUSCULOSKELETAL: No acute osseous abnormalities, left hip arthroplasty changes hardware appears intac t. T12 vertebral body probable bony island. Multilevel disc degeneration changes throughout spine wor se at L5-S1. LYMPH NODES: No gross evidence for lymphadenopathy. SOFT TISSUE/ABDOMINAL WALL: Bilateral fat-containing inguinal hernias. IMPRESSION: No evidence for acute abdominal process. No acute process or process involving the bowel to explain t he patient's change in bowel habits. The colon is relatively nondistended in the distal portion.
== END | disposition home or self-care (01) ==
LOC: RADCTMAIN 15:27
PROVIDERS: ATTEND Family Medicine
DX: R10.84 Generalized abdominal pain (principal)
CPT/HCPCS: 82565; 84520; 74177; 36415; Q9967

== ENCOUNTER → 2022-10-20 | Outpatient (CLI) | payer BC ==
--- NOTE | 2022-10-20 13:10 | BD ---
EXAMINATION TYPE: Axial Bone Density DATE OF EXAM: 10/20/2022 CLINICAL HISTORY: 66 years old Female. ICD-10 CODE: M81.0 Height: 65 Weight: 225.7 FRAX RISK QUESTIONS: Alcohol (3 or more units per day): no Family History (Parent hip fracture): no Glucocorticoids (More than 3mos): no History of Fracture in Adulthood: no Secondary Osteoporosis: 1. Type 1 Diabetes: no 2. Hyperthyroidism: no 3. Menopause before 45: no 4. Malnutrition: no 5. Chronic liver disease: no Rheumatoid Arthritis: no Current Tobacco Use: no RISK FACTORS HISTORY OF: Hip Fracture (Right/Left): no When: Spine Fracture: no When: History of Wrist Fracture: yes, lt wrist When: age 10 Surgery to Spine/Hip(right/left)/Wrist (right/left): Lt Hip Replacement When: Age 56 Family History of Osteoporosis: Sister Active: no Diet low in dairy products/other sources of calcium: no Postmenopausal woman: yes Take estrogen and/or progesterone medications: no Lost more than 2 inches in height since high school: no Frequent falls: no Poor Health: no Hyperparathyroidism: no Adrenal Insufficiency: no MEDICATIONS: Prednisone or other steroids: no Thyroid Medications: Levothyroxin How Long: past 20 years Osteoporosis Medications: no Additional Medications: Depression Med, Cholesterol Med, Vit D, Multi Vit., Bioflex, Additional History: EXAM MEASUREMENTS: Bone mineral densitometry was performed using the [employer] System. Bone mineral density as measured about the Lumbar spine is: ----- L1-L4(G/cm2): 1.133 T Score Values are as follows: ----- L1: -2.0 ----- L2: -0.6 ----- L3: 0.3 ----- L4: -0.1 ----- L1-L4: -0.4 Z Score Values are as follows: ----- L1: -1.5 ----- L2: -0.1 ----- L3: 0.8 ----- L4: 0.4 ----- L1-L4: 0.1 Bone mineral density has: INCREASED 5.1 % since study of: 11/24/2020 Bone mineral density about the R hip (g/cm2): 0.808 T Score values are as follows: -----R Neck: -2.4 -----R Total: -1.6 Z Score values are as follows: -----R Neck: -2.4 -----R Total: -1.6 Bone mineral density has: INCREASED 4.3 % since study of: 11/24/2020 FRAX%s: The graph provided illustrates a 12.1% chance for a major osteoporotic fx and a 2.4% chance f or the hips probability for fx in 10 years time. IMPRESSION: Osteopenia (T Score between -2.5 and -1). There is slightly increased risk of fracture and the patient may be considered for treatment. Re-Screen 2-5 years. NOTE: T-SCORE=SD OF THE YOUNG ADULT MEAN.
== END | disposition home or self-care (01) ==
LOC: RADBDWWP 08:04
PROVIDERS: ATTEND Family Medicine
DX: M81.0 Age-related osteoporosis without current pathological fracture (principal); M85.89 Other specified disorders of bone density and structure, multiple sites
CPT/HCPCS: 77080

== ENCOUNTER → 2022-10-20 | Outpatient (CLI) | payer BC ==
--- NOTE | 2022-10-20 09:41 | MM ---
Reason for Exam: Screening (asymptomatic). Last screening mammogram was performed 12 month(s) ago. Patient History: Menarche at age 12. First Full-Term at age 23. Postmenopausal. Patient has history of breast feeding. Hormonal Contraceptives for 6 years from age 18 until age 46. 10/08/2018, High risk Core Biopsy on the left side. 08/27/2018, Benign Core Biopsy on the left side. Risk Values: Julissa 5 year model risk: 2.3%. NCI Lifetime model risk: 8.0%. Prior Study Comparison: 09/16/2019 Bilateral Diagnostic Mammogram, [facility]. 09/20/2020 Bilateral Screening Mammogram, [facility]. 10/18/2021 Bilateral MG 3D screening mammo w/cad, [facility]. Tissue Density: The breast tissue is almost entirely fat. Findings: Analyzed By CAD. Left breast surgical clips. There is no suspicious group of microcalcifications or new suspicious mass in either breast. Overall Assessment: Negative, BI-RAD 1 Management: Screening Mammogram of both breasts in [address] [facility] will attempt to contact patient to return for supplemental views and ultrasound if indicated. Patient should continue monthly self-breast exams. A clinical breast exam by your physician is recommended on an annual basis. This exam should not preclude additional follow-up of suspicious palpable abnormalities. Note on Julissa scores and lifetime risk: 1. A Julissa score greater than 3% is considered moderate risk. If this is the case, consider specialist referral to assess eligibility for a risk reducing agent. 2. If overall lifetime risk for the development of breast cancer is 20% or higher, the patient may qualify for future screening with alternating mammogram and breast MRI. Electronically signed and approved by: Preston Godwin DO
== END | disposition home or self-care (01) ==
LOC: RADMAMWWP 08:07
PROVIDERS: ATTEND Surgery
DX: Z12.31 Encounter for screening mammogram for malignant neoplasm of breast (principal); Z78.0 Asymptomatic menopausal state
CPT/HCPCS: 77063; 77067

== ENCOUNTER → 2022-11-02 | Outpatient (CLI) | payer BC ==
[2022-11-02 11:37] VITALS: BP 114/82; PULSE 90; RESP 18; TEMP 98
--- NOTE | 2022-11-02 11:49 | P.PN ---
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 The patient subsequently underwent an ultrasound which revealed 3 mm hypoechoic lesion at 1:00. She had an attempted ultrasound- guided core biopsy of this area which revealed only benign breast tissue. Review of the ultrasound findings as well as the mammogram with Dr. Yee reveals that the area of concern on the mammogram was most likely not sampled. It is therefore been recommended that the patient undergo a needle local excisional biopsy of the area of concern. She underwent a needle localization and excisional biopsy on . Her pathology showed some focal atypical ductal hyperplasia. The margins were negative for atypical hyperplasia. The patient 8 weeks ago noted some bruising in her breast, She is not complaining of any lumps masses nodules or pain in the breasts. No complaints of any nipple discharge or changes. She is not complaining of any trauma to her breast. She had a bilateral mammogram on 10-20-22 BIRAD 1 Julissa Risk analysis reveals a 5 year breast cancer risk of 2.3% versus 2% for average 63-year-old Lifetime risk 8.3% versus 8.% for average 63-year-old we have discussed chemoprevention secondary to ADH and she has declined Family history: Father: Lung cancer Maternal uncle: Stomach cancer Hormonal history: Menarche: 12 1 miscarriage, breast-fed: Yes, first child born at 23 Menopause: 50 Control pills: 3 years Hormones: Negative Past surgical history: 1. 3 C-sections 2. Tubal ligation 3. Hip replacement 4. Tonsils and adenoids 5. left breast biopsy 6. Cholecystectomy Past medical history: 1. Hypothyroid 2. Vertigo 3. Tendinitis 4. Reflux 5. Hiatal hernia Social history: Smoking: Negative Alcohol: Negative Drugs: Negative - Constitutional Constitutional: Denies chills, Denies fever - EENT Eyes: denies blurred vision, denies pain Ears: deny: decreased hearing, tinnitus - Breasts Breasts: bilateral: as per HPI - Cardiovascular Cardiovascular: Denies chest pain, Denies shortness of breath - Respiratory Respiratory: Denies cough - Gastrointestinal Comment: reflux, IBS - Genitourinary (Female) Genitourinary: Denies dysuria, Denies hematuria - Menstruation Menstruation: Reports postmenopausal - Musculoskeletal Comment: arthritis - Integumentary Comment: exczema - Neurological Neurological: Denies numbness, Denies weakness - Psychiatric Psychiatric: Reports anxiety, Reports depression - Endocrine Endocrine: Denies fatigue, Denies weight change - Hematologic/Lymphatic Comment: none - Allergic/Immunologic Allergic/Immunologic: Reports seasonal allergies Objective - Constitutional General appearance: Present: cooperative - EENT Eyes: Present: EOMI ENT: Present: hearing grossly normal - Neck Neck: Present: normal ROM - Respiratory Respiratory: bilateral: CTA - Cardiovascular Rhythm: regular Heart sounds: normal: S1, S2 - Gastrointestinal General gastrointestinal: Present: soft - Integumentary Integumentary: Present: normal turgor - Musculoskeletal Musculoskeletal: Present: gait normal - Psychiatric Psychiatric: Present: A&O x's 3, appropriate affect, intact judgment & insight - Additional findings Additional findings: Breast Exam: BRA: 44DD Inspection: grade 3 ptosis bilateral, bilateral fungal infection under both breast Palpation: Right breast: Multi positional exam fibrocystic changes no dominant masses or nodules of concern; mild erythema superior to nipple areolar region Right axilla: No adenopathy of concern Left breast: Multi-positional exam fibrocystic changes no dominant masses or nodules of concern, well-healed scar from prior surgery Left axilla: No adenopathy of concern Assessment and Plan Assessment: Impression: Bilateral mammograms 77-23 benign BIRADS 1 Fibrocystic changes Bilateral fungal infection under both breasts Mild erythema left breast near the nipple areolar region Plan: Bilateral mammogram in 1 year with physician exam at that time Follow up sooner any questions or concerns Nystatin to areas under both breasts keflex 500mg QID follow up in two weeks Additional CC's: Griselda Lei
== END ==
LOC: WWCWWP 11:26
PROVIDERS: ATTEND Surgery
DX: N60.12 Diffuse cystic mastopathy of left breast (principal); E03.9 Hypothyroidism, unspecified; K21.9 Gastro-esophageal reflux disease without esophagitis; Z91.011 Allergy to milk products; Z88.8 Allergy status to other drugs, medicaments and biological substances; Z79.899 Other long term (current) drug therapy

== ENCOUNTER → 2022-11-16 | Outpatient (CLI) | payer BC ==
[2022-11-16 08:31] VITALS: BP 127/84; PULSE 100; RESP 17; TEMP 98.3
--- NOTE | 2022-11-16 08:36 | P.PN ---
Progress Note - Text Progress Note Date: 11/16/22 [place] [id number] at which time she was complaining of some mild erythema superior to the nipple areolar region on the left. Patient was started on Keflex and is here to reevaluate this area. Examination: Decreased erythema in the left breast supra areolar region No discrete lesions of concern Plan: Repeat examination in one month to further evaluate this area CC: Dr. Lei
== END ==
LOC: WWCWWP 07:47
PROVIDERS: ATTEND Surgery
DX: Z04.89 Encounter for examination and observation for other specified reasons (principal); Z91.011 Allergy to milk products; Z88.8 Allergy status to other drugs, medicaments and biological substances

== ENCOUNTER → 2023-02-19 | Outpatient (CLI) | payer BC ==
[2023-02-19 13:14] LABS: African American GFR (CKD) 68 (>60 ml/min/1.73 sqM); Blood Urea Nitrogen 17 mg/dL (7-17); Non-African American GFR(CKD) 59 (>60 ml/min/1.73 sqM)
--- NOTE | 2023-02-19 14:53 | CT ---
EXAMINATION TYPE: CT abdomen pelvis w con CT DLP: 1558.60 mGycm, Automated exposure control for dose reduction was used. DATE OF EXAM: 02/19/2023 2:32 PM COMPARISON: 09/06/2022 CLINICAL INDICATION:Female, 67 years old with history of R10.84 abdominal pain; upper abdominal pain hx of hernias TECHNIQUE: Axial CT of the ;CT abdomen pelvis w con;Sagittal and coronal reformats were created on a separate workstation. Contrast used:100 mL of Isovue 300 with IV Contrast, (none if empty) Oral contrast used: with Oral Contrast (none if empty) FINDINGS: LOWER CHEST: Unremarkable ABDOMEN LIVER: Unremarkable GALLBLADDER AND BILE DUCTS: Gallbladder surgically absent. PANCREAS: Lipomatous pseudohypertrophy changes of the head and neck.. SPLEEN: Unremarkable. ADRENAL GLANDS: Unremarkable. KIDNEYS AND URETERS: No evidence of hydronephrosis or renal calculus. The ureters are unremarkable. PELVIS BLADDER: Unremarkable REPRODUCTIVE: Unremarkable. ABDOMEN & PELVIS STOMACH AND BOWEL: No evidence of bowel obstruction. Second portion duodenal diverticulum. PERITONEUM/RETROPERITONEUM: No evidence of pneumoperitoneum or free fluid. VASCULATURE: No evidence of aortic aneurysm. MUSCULOSKELETAL: No acute osseous abnormalities, left hip arthroplasty with hardware intact. T12 bone island is unchanged. LYMPH NODES: No gross evidence for lymphadenopathy. SOFT TISSUE/ABDOMINAL WALL: Fat-containing inguinal hernias bilaterally. Fat-containing umbilical her hafsa. IMPRESSION: 1. Bilateral fat-containing inguinal hernias. No evidence for acute inflammation. 2. Fat-containing umbilical hernia without evidence for acute inflammation. 3. No acute abdominal process.
== END | disposition home or self-care (01) ==
LOC: RADCTMAIN 12:26
PROVIDERS: ATTEND Family Medicine
DX: K40.20 Bilateral inguinal hernia, without obstruction or gangrene, not specified as recurrent (principal); K42.9 Umbilical hernia without obstruction or gangrene; R10.11 Right upper quadrant pain; R19.4 Change in bowel habit; R10.9 Unspecified abdominal pain; R10.84 Generalized abdominal pain
CPT/HCPCS: 82565; 84520; 74177; 36415; Q9967

== ENCOUNTER → 2023-04-04 | Outpatient (CLI) | payer BC ==
[2023-04-04 12:22] LABS: African American GFR (CKD) 78 (>60 ml/min/1.73 sqM); Blood Urea Nitrogen 20 mg/dL (7-17); Non-African American GFR(CKD) 67 (>60 ml/min/1.73 sqM)
--- NOTE | 2023-04-09 21:00 | CT ---
EXAMINATION TYPE: CT facial bones w con DATE OF EXAM: 04/04/2023 COMPARISON: None HISTORY: 67-year-old female J32.9 c/o sinus congestion CT DLP: 660.8 mGycm Automated exposure control for dose reduction was used. TECHNIQUE: CT of the facial bones after administration of 100 mL Isovue 300 IV contrast. Coronal and sagittal reformatted images were obtained. FINDINGS: PARANASAL SINUSES: The frontal, ethmoid, maxillary and sphenoid sinuses are clear and well pneumatized. There is no mucosal thickening or air-fluid level. Reactive sin- osteogenesis is not seen. There is no destruction of the osseous vicente of the paranasal sinuses. THE NASAL CAVITY: The osteomeatal complexes are patent. Undulating nasal septum. The imaged brain and orbits are normal in appearance. Mild degenerative change of the TMJs. Mastoid air cells and middle ear cavities are well pneumatized. Reformatted images confirm above findings. IMPRESSION: No abnormal mucosal thickening or air-fluid levels. Undulating nasal septum. Mild degenerative change of the TMJs.
== END | disposition home or self-care (01) ==
LOC: RADCTMAIN 11:46
PROVIDERS: ATTEND Family Medicine
DX: M26.643 Arthritis of bilateral temporomandibular joint (principal); J32.9 Chronic sinusitis, unspecified; J34.2 Deviated nasal septum
CPT/HCPCS: 82565; 84520; 70487; 36415; Q9967

== ENCOUNTER 2023-05-30 08:37 | Day surgery (SDC) | payer BC ==
--- NOTE | 2023-05-30 07:36 | P.GSHP ---
History of Present Illness H&P Date: 05/30/23 CHIEF COMPLAINT: GERD HISTORY OF PRESENT ILLNESS: The patient is a 67-year-old female who presents reports gastroesophageal reflux disease. Upper endoscopy was offered for further evaluation and management. PAST MEDICAL HISTORY: Please see list. PAST SURGICAL HISTORY: Please see list. MEDICATIONS: Please see list. ALLERGIES: Please see list. SOCIAL HISTORY: No illicit drug use FAMILY HISTORY: No reports of Crohn disease or ulcerative colitis. REVIEW OF ORGAN SYSTEMS: CONSTITUTIONAL: No reports of fevers or chills. GI: Denies any blood in stools or constipation. PHYSICAL EXAM: VITAL SIGNS: Stable GENERAL: Well-developed and pleasant in no acute distress. HEENT: No scleral icterus. Extraocular movements grossly intact. Moist buccal mucosa. NECK: Supple without lymphadenopathy. CHEST: Unlabored respirations. Equal bilateral excursions. CARDIOVASCULAR: Regular rate and rhythm. Distal 2+ pulses. ABDOMEN: Soft, nondistended. MUSCULOSKELETAL: No clubbing, cyanosis, or edema. ASSESSMENT: 1. Gastroesophageal reflux disease PLAN: 1. Recommend proceeding with an upper endoscopy Past Medical History Past Medical History: GERD/Reflux, Hyperlipidemia, Osteoarthritis (OA), Skin Disorder, Thyroid Disorder Additional Past Medical History / Comment(s): hx optical migraines. vertigo. hx kidney stones. eczema. dermatitis. IBS. hiatal hernia. tinnitus History of Any Multi-Drug Resistant Organisms: None Reported Past Surgical History: Adenoidectomy, Section, Joint Replacement, Tonsillectomy, Tubal Ligation Additional Past Surgical History / Comment(s): left hip replacement. C-sections x3. D & C Past Anesthesia/Blood Transfusion Reactions: Previous Problems w/ Anesthesia, Mo tion Sickness Additional Past Anesthesia/Blood Transfusion Reaction / Comment(s): Ketamine caused involuntary muscle movements and hallucinations. Past Psychological History: Anxiety, Depression Additional Psychological History / Comment(s): Pt lives alone in apt, has 2 porch steps, 1 step into building and 8 steps up to apt. She is independent-no assitive devices used.. She is employed as a behavioral health clinician. She drives a car. hax of depression feels well maintained on her medications. Smoking Status: Never smoker Past Alcohol Use History: None Reported Past Drug Use History: None Reported - Past Family History Father Family Medical History: Cancer, Hypertension Additional Family Medical History / Comment(s): Father of lung cancer at age 69 yrs. Mother Family Medical History: Hypertension Additional Family Medical History / Comment(s): passed from complications of myasthenia gravis Medications and Allergies Home Medications Medication Instructions Recorded Confirmed Type Fish Oil/Dha/Epa [Fish Oil 1,200 1 cap PO HS 05/19/14 05/29/23 History mg Fish Oil] L.acid/L.casei/B.bif/B.raphael/Fos 1 cap PO HS 05/19/14 05/29/23 History [Probiotic Blend Capsule] Multivitamins, Thera [Multivitamin 1 tab PO QA 05/19/14 05/29/23 History (formulary)] Simvastatin [Zocor] 20 mg PO HS 05/19/14 05/29/23 History Ubidecarenone [Co Q-10] 100 mg PO QAM 05/19/14 05/29/23 History Levothyroxine Sodium [Synthroid] 75 mcg PO QAM 12/21/15 05/29/23 History Vits A,C,E/Lutein/Minerals 1 tab PO HS 12/21/15 05/29/23 History [Ocuvite with Lutein Tablet] Glucosamine/Chondr Rhodes A Sod [Osteo 1 tab PO HS 06/14/16 05/29/23 History Bi-Flex Caplet] Turmeric Root Extract [Turmeric] 500 mg PO HS 06/14/16 05/29/23 History ALPRAZolam [Xanax] 0.25 mg PO DAILY PRN 11/29/16 05/29/23 History Cholecalciferol (Vitamin D3) 2,000 unit PO QA 11/29/16 05/29/23 History [Vitamin D3] Omeprazole [PriLOSEC] 20 mg PO AC-BRKFST 10/02/18 05/29/23 History DULoxetine HCL [Cymbalta] 30 mg PO DAILY 09/23/20 05/29/23 History Allergies Allergy/AdvReac Type Severity Reaction Status Date / Time buspirone [From BuSpar] AdvReac Increased Verified 05/29/23 09:30 Anxiety clonazepam [From Klonopin] AdvReac Hallucinati Verified 05/29/23 09:30 ons ketamine AdvReac Hallucinations Verified 05/29/23 09:30 & Muscle Spasms lactose AdvReac Intolerant Verified 05/29/23 09:30
[2023-05-30] MEDS ORDERED: LACTATED RINGERS 1,000 ML IV SCH (08:57)
[2023-05-30] MEDS: LACTATED RINGERS 1,000 ML IV ONE (09:04)
[2023-05-30 09:07] VITALS: TEMP 97.9
[2023-05-30 09:10] LABS: Glucose,Whole Blood 94 mg/dL (70-110)
[2023-05-30] MEDS: LIDOCAINE 1% (10MG/ML) FOR IV START INTRADERMA ONE (09:27)
[2023-05-30] MEDS ORDERED: LIDOCAINE 1% INJ 10MG/ML (20 ML MDV) ONE (09:36)
[2023-05-30] MEDS ORDERED: PROPOFOL 10 MG/ML 20 ML VIAL IV ONE (09:36)
--- NOTE | 2023-05-30 10:21 | P.PCN ---
Date of Procedure: 05/30/23 Description of Procedure: PREOPERATIVE DIAGNOSIS: Gastroesophageal reflux disease. Morbid obesity. POSTOPERATIVE DIAGNOSIS: Gastroesophageal reflux disease. Morbid obesity. Gastritis. Diaphragmatic hiatal hernia OPERATION: Esophagogastroduodenoscopy with biopsies along esophagus, antrum and duodenum SURGEON: Jennifer Medrano MD ANESTHESIA: MAC. INDICATIONS: The patient is a 67-year-old female who presents with reflux disease. Benefits and risks of the procedure were described. Informed consent was obtained. DESCRIPTION: The patient was brought into the endoscopy suite and laid in the left lateral decubitus position. An Olympus gastroscope was passed along the posterior oropharynx down to the distal esophagus where the squamocolumnar junction was encountered at 37 cm from the incisors. The stomach was entered and no bile reflux was found. Additional findings are listed below. Biopsies with cold forceps were obtained of the antrum. The first through third portion of the duodenum was examined. Retroflexion of the scope confirmed Hill grade 2 lower esophageal valve. The squamocolumnar junction demonstrated LA grade B erosive esophagitis. The stomach was desufflated. The patient tolerated the procedure well. FINDINGS: Squamocolumnar junction 37 cm from the incisors. Diaphragmatic hiatus at 38 cm. Hiatal hernia, 1 cm Hill grade 2 lower esophageal valve. LA grade B erosive esophagitis. Biopsies obtained Hyperplastic gastric polyps, 2 mm, gastric body Biopsies obtained of the duodenum. Chronic gastritis with biopsies obtained. RECOMMENDATIONS: Upper endoscopy as needed. Plan - Discharge Summary New Discharge Prescriptions: Continue Simvastatin [Zocor] 20 mg PO HS Ubidecarenone [Co Q-10] 100 mg PO QAM Multivitamins, Thera [Multivitamin (formulary)] 1 tab PO QAM L.acid/L.casei/B.bif/B.raphael/Fos [Probiotic Blend Capsule] 1 cap PO HS Fish Oil/Dha/Epa [Fish Oil 1,200 mg Fish Oil] 1 cap PO HS Vits A,C,E/Lutein/Minerals [Ocuvite with Lutein Tablet] 1 tab PO HS Levothyroxine Sodium [Synthroid] 75 mcg PO QAM Glucosamine/Chondr Rhodes A Sod [Osteo Bi-Flex Caplet] 1 tab PO HS Turmeric Root Extract [Turmeric] 500 mg PO HS Cholecalciferol (Vitamin D3) [Vitamin D3] 2,000 unit PO QAM ALPRAZolam [Xanax] 0.25 mg PO DAILY PRN PRN Reason: Anxiety Omeprazole [PriLOSEC] 20 mg PO AC-BRKFST DULoxetine HCL [Cymbalta] 30 mg PO DAILY Discharge Medication List Fish Oil/Dha/Epa [Fish Oil 1,200 mg Fish Oil] 1 cap PO HS 05/19/14 [History] L.acid/L.casei/B.bif/B.raphael/Fos [Probiotic Blend Capsule] 1 cap PO HS 05/19/14 [History] Multivitamins, Thera [Multivitamin (formulary)] 1 tab PO QAM 05/19/14 [History] Simvastatin [Zocor] 20 mg PO HS 05/19/14 [History] Ubidecarenone [Co Q-10] 100 mg PO QAM 05/19/14 [History] Levothyroxine Sodium [Synthroid] 75 mcg PO QAM 12/21/15 [History] Vits A,C,E/Lutein/Minerals [Ocuvite with Lutein Tablet] 1 tab PO HS 12/21/15 [History] Glucosamine/Chondr Rhodes A Sod [Osteo Bi-Flex Caplet] 1 tab PO HS 06/14/16 [History] Turmeric Root Extract [Turmeric] 500 mg PO HS 06/14/16 [History] ALPRAZolam [Xanax] 0.25 mg PO DAILY PRN 11/29/16 [History] Cholecalciferol (Vitamin D3) [Vitamin D3] 2,000 unit PO QAM 11/29/16 [History] Omeprazole [PriLOSEC] 20 mg PO AC-BRKFST 10/02/18 [History] DULoxetine HCL [Cymbalta] 30 mg PO DAILY 09/23/20 [History] Follow up Appointment(s)/Referral(s): Jennifer Medrano MD [STAFF PHYSICIAN] - 07/03/23 10:45 am Patient Instructions/Handouts: Gastritis (DC), GERD (Gastroesophageal Reflux Disease) (DC) Discharge Disposition: HOME SELF-CARE
[2023-05-30 10:41] VITALS: BP 118/71; PULSE 86; RESP 18
== END 2023-05-30 11:10 | disposition home or self-care (01) ==
LOC: ORWHC2ENDO 08:37
PROVIDERS: ATTEND Surgery Plastic and Reconstructive Surgery
DX: K29.50 Unspecified chronic gastritis without bleeding (principal); K21.9 Gastro-esophageal reflux disease without esophagitis; E66.01 Morbid (severe) obesity due to excess calories; K44.9 Diaphragmatic hernia without obstruction or gangrene; E78.5 Hyperlipidemia, unspecified; M19.90 Unspecified osteoarthritis, unspecified site; E07.9 Disorder of thyroid, unspecified; F41.9 Anxiety disorder, unspecified; F32.A Depression, unspecified; Z87.442 Personal history of urinary calculi; Z90.89 Acquired absence of other organs; Z90.49 Acquired absence of other specified parts of digestive tract; Z98.51 Tubal ligation status; Z82.49 Family history of ischemic heart disease and other diseases of the circulatory system; Z80.1 Family history of malignant neoplasm of trachea, bronchus and lung; Z79.899 Other long term (current) drug therapy
CPT/HCPCS: 88305; 43239; J2001; J2704

== ENCOUNTER → 2023-10-23 | Outpatient (CLI) | payer BC ==
--- NOTE | 2023-10-26 11:36 | MM ---
Reason for Exam: Screening (asymptomatic). Last screening mammogram was performed 12 month(s) ago. Patient History: Menarche at age 12. First Full-Term at age 23. Postmenopausal. Patient has history of breast feeding. Hormonal Contraceptives for 6 years from age 18 until age 46. 10/08/2018, High risk Core Biopsy on the left side. 08/27/2018, Benign Core Biopsy on the left side. Risk Values: Julissa 5 year model risk: 2.3%. NCI Lifetime model risk: 7.7%. Prior Study Comparison: 09/20/2020 Bilateral Screening Mammogram, [facility]. 10/18/2021 Bilateral MG 3D screening mammo w/cad, [facility]. 10/20/2022 Bilateral MG 3D screening mammo w/cad, [facility]. Tissue Density: There are scattered areas of fibroglandular density. Findings: Analyzed By CAD. The pattern is symmetrical. Prior surgical clips are the upper outer left posterior breast. There is some increasing density in the subareolar right breast. Additionally, scattered punctate calcifications are developing within this irregular region. Additional workup with magnification compression views is recommended. Left breast:No suspicious groups of microcalcifications, spiculated or lobular masses, architectural distortion or other secondary signs of malignancy are mammographically apparent. Overall Assessment: Incomplete: need additional imaging evaluation, BI-RAD 0 Management: Diagnostic Mammogram of the right breast. A negative mammogram report should not preclude additional follow up of suspicious palpable abnormalities. Patient should continue monthly self breast exam. A clinical breast exam by your physician is recommended on an annual basis and results should be correlated with mammographic findings. Note on Julissa scores and lifetime risk: 1. A Julissa score greater than 3% is considered moderate risk. If this is the case, consider specialist referral to assess eligibility for a risk reducing agent. 2. If overall lifetime risk for the development of breast cancer is 20% or higher, the patient may qualify for future screening with alternating mammogram and breast MRI. Electronically signed and approved by: Nuno Maza D.O. Radiologis
== END | disposition home or self-care (01) ==
LOC: RADMAMWWP 07:55
PROVIDERS: ATTEND Surgery
DX: Z12.31 Encounter for screening mammogram for malignant neoplasm of breast (principal); Z78.0 Asymptomatic menopausal state
CPT/HCPCS: 77063; 77067

== ENCOUNTER → 2023-10-26 | Outpatient (CLI) | payer BC ==
--- NOTE | 2023-10-26 11:46 | P.PN ---
Subjective Progress Note Date: 10/26/23 Principal diagnosis: abnormal right breast mammogram 12/22/22 atypical hyperplasia left breast This is a 67-year-old white female who on routine screening mammogram on was noted to have an area of distortion in the central portion of the left breast in the outer quadrant. The patient subsequently underwent an ultrasound which revealed 3 mm hypoechoic lesion at 1:00. She had an attempted ultrasound- guided core biopsy of this area which revealed only benign breast tissue. Review of the ultrasound findings as well as the mammogram with Dr. Yee reveals that the area of concern on the mammogram was most likely not sampled. It is therefore been recommended that the patient undergo a needle local excisional biopsy of the area of concern. She underwent a needle localization and excisional biopsy on . Her pathology showed some focal atypical ductal hyperplasia. The margins were negative for atypical hyperplasia. The patient 8 weeks ago noted some bruising in her breast, She is not complaining of any lumps masses nodules or pain in the breasts. No complaints of any nipple discharge or changes. She is not complaining of any trauma to her breast. She had a bilateral mammogram on 10-20-22 BIRAD 1 12-22-22 Patient continues to complain of some mild erythema on the superior aspect of the left breast. This is intermittent but it is of concern to her. She is not complaining of any new lumps masses or nodules of concern in either breast. Julissa Risk analysis reveals a 5 year breast cancer risk of 2.3% versus 2% for average 63-year-old Lifetime risk 8.3% versus 8.% for average 63-year-old we have discussed chemoprevention secondary to ADH and she has declined 10-26-23 bilateral mammogram on 10-23-23 personally reviewed and discussed with Dr. Hare, recommend mag views behind right nipple complex, no other lesions of concern She is not complaining of any new lumps masses or nodules of concern in either breast Family history: Father: Lung cancer Maternal uncle: Stomach cancer Hormonal history: Menarche: 12 1 miscarriage, breast-fed: Yes, first child born at 23 Menopause: 50 Control pills: 3 years Hormones: Negative Past surgical history: 1. 3 C-sections 2. Tubal ligation 3. Hip replacement 4. Tonsils and adenoids 5. left breast biopsy 6. Cholecystectomy Past medical history: 1. Hypothyroid 2. Vertigo 3. Tendinitis 4. Reflux 5. Hiatal hernia (scheduled for surgery December 20, 2023) Social history: Smoking: Negative Alcohol: Negative Drugs: Negative - Constitutional Constitutional: Denies chills, Denies fever - EENT Eyes: denies blurred vision, denies pain Ears: deny: decreased hearing, tinnitus - Breasts Breasts: bilateral: as per HPI - Cardiovascular Cardiovascular: Denies chest pain, Denies shortness of breath - Respiratory Respiratory: Denies cough - Gastrointestinal Comment: reflux, IBS - Genitourinary (Female) Genitourinary: Denies dysuria, Denies hematuria - Menstruation Menstruation: Reports postmenopausal - Musculoskeletal Comment: arthritis - Integumentary Comment: exczema - Neurological Neurological: Denies numbness, Denies weakness - Psychiatric Psychiatric: Reports anxiety, Reports depression - Endocrine Endocrine: Denies fatigue, Denies weight change - Hematologic/Lymphatic Comment: none - Allergic/Immunologic Allergic/Immunologic: Reports seasonal allergies Objective - Constitutional General appearance: Present: cooperative - EENT Eyes: Present: EOMI ENT: Present: hearing grossly normal - Neck Neck: Present: normal ROM - Respiratory Respiratory: bilateral: CTA - Cardiovascular Heart sounds: normal: S1, S2 - Integumentary Integumentary: Present: normal turgor - Musculoskeletal Musculoskeletal: Present: gait normal - Psychiatric Psychiatric: Present: A&O x's 3, appropriate affect, intact judgment & insight - Additional findings Additional findings: Breast Exam: BRA: 2XL Inspection: bilateral grade 3 ptosis inspection: Right breast: Multi positional exam fibrocystic changes, no dominant masses or nodules of concern, particular attention to the area behind the nipple areolar complex does not reveal any dominant masses or nodules of concern Right axilla: No adenopathy of concern Left breast: Multi positional exam no dominant masses or nodules of concern Left axilla: No adenopathy of concern Assessment and Plan Assessment: Impression: History of atypical ductal hyperplasia and open biopsy of the left breast Bilateral mammogram 10-23-2023 increasing microcalcifications behind the right nipple areolar complex for which mag views and possible stereotactic core biopsy have been recommended Plan: Make views right breast Probable stereotactic core biopsy microcalcifications in the retroareolar region on the right breast Risk and benefits of stereotactic core biopsy discussed with the patient. Risk include but are not limited to bleeding, infection, reaction to the anesthetic. If tissue were felt to be discordant then open biopsy may be recommended. The patient understands and this will be determined following the mag views of the right breast. CC: Dr. Lei
[2023-10-26 12:03] VITALS: BP 129/84; PULSE 105; RESP 16; TEMP 98.6
== END ==
LOC: WWCWWP 10:36
PROVIDERS: ATTEND Surgery
DX: R92.8 Other abnormal and inconclusive findings on diagnostic imaging of breast (principal); R92.0 Mammographic microcalcification found on diagnostic imaging of breast; N60.92 Unspecified benign mammary dysplasia of left breast; Z88.8 Allergy status to other drugs, medicaments and biological substances; Z91.011 Allergy to milk products; Z88.4 Allergy status to anesthetic agent

== ENCOUNTER → 2023-10-26 | Outpatient (CLI) | payer BC ==
--- NOTE | 2023-10-29 10:38 | MM ---
Reason for Exam: Additional evaluation requested from prior study. Last screening mammogram was performed less than 1 month ago. Patient History: Menarche at age 12. First Full-Term at age 23. Postmenopausal. Patient has history of breast feeding. Hormonal Contraceptives for 6 years from age 18 until age 46. 10/08/2018, High risk Core Biopsy on the left side. 08/27/2018, Benign Core Biopsy on the left side. Risk Values: Julissa 5 year model risk: 2.3%. NCI Lifetime model risk: 7.7%. Tissue Density: Right: There are scattered areas of fibroglandular density. Findings: Analyzed By CAD. Pattern appears stable. There is an irregular area of increased density in the subareolar right breast. There are linear arranged punctate calcifications are present less well visualized on the magnification views. Findings are a changed comparison. Ultrasound recommended for additional evaluation. No suspicious groups of microcalcifications, spiculated or lobular masses, architectural distortion or other secondary signs of malignancy are mammographically apparent. Overall Assessment: Incomplete: need additional imaging evaluation, BI-RAD 0 Management: Diagnostic Breast Ultrasound of the right breast. A negative mammogram report should not preclude additional follow up of suspicious palpable abnormalities. Patient should continue monthly self breast exam. A clinical breast exam by your physician is recommended on an annual basis and results should be correlated with mammographic findings. Note on Julissa scores and lifetime risk: 1. A Julissa score greater than 3% is considered moderate risk. If this is the case, consider specialist referral to assess eligibility for a risk reducing agent. 2. If overall lifetime risk for the development of breast cancer is 20% or higher, the patient may qualify for future screening with alternating mammogram and breast MRI. Electronically signed and approved by: Nuno Maza D.O. Radiologis
--- NOTE | 2023-10-29 10:39 | USB ---
Reason for Exam: Additional evaluation requested from abnormal screening. Patient History: Menarche at age 12. First Full-Term at age 23. Postmenopausal. Patient has history of breast feeding. Hormonal Contraceptives for 6 years from age 18 until age 46. 10/08/2018, High risk Core Biopsy on the left side. 08/27/2018, Benign Core Biopsy on the left side. Risk Values: Julissa 5 year model risk: 2.3%. NCI Lifetime model risk: 7.7%. Technique: Method: Targeted. Prior Study Comparison: 10/18/2021 Bilateral MG 3D screening mammo w/cad, [facility]. 10/20/2022 Bilateral MG 3D screening mammo w/cad, [facility]. 10/23/2023 Bilateral MG 3D screening mammo w/cad, [facility]. Findings: The axilla of the right breast and the retroareolar of the right breast were scanned. In the upper outer quadrant subareolar position is a 0.7 x 0.6 x 6 1.0 cm area of isoechoic signal slightly indistinct margins. This may correlate with the mammographic finding. Ultrasound versus stereotactic core biopsy recommended. Please also see diagnostic mammogram report same date. Overall Assessment: Suspicious, BI-RAD 4 Management: Surgical Consultation of the right breast. A clinical breast exam by your physician is recommended on an annual basis and results should be correlated with mammographic findings. This exam should not preclude additional follow-up of suspicious palpable abnormalities. Results were given to the patient verbally at the time of exam. Electronically signed and approved by: Nuno Maza D.O. Radiologis
== END | disposition home or self-care (01) ==
LOC: RADMAMWWP 11:49
PROVIDERS: ATTEND Surgery
DX: R92.8 Other abnormal and inconclusive findings on diagnostic imaging of breast (principal); R92.323 Mammographic fibroglandular density, bilateral breasts; Z78.0 Asymptomatic menopausal state
CPT/HCPCS: 77061; 77065

== ENCOUNTER → 2023-11-15 | Day surgery (SDC) | payer BC ==
--- NOTE | 2023-12-21 13:27 | MM ---
Reason for Exam: Post Procedure Mammogram. Last screening mammogram was performed less than 1 month ago. Patient History: Menarche at age 12. First Full-Term at age 23. Postmenopausal. Patient has history of breast feeding. Hormonal Contraceptives for 6 years from age 18 until age 46. 10/08/2018, High risk Core Biopsy on the left side. 08/27/2018, Benign Core Biopsy on the left side. Risk Values: Julissa 5 year model risk: 2.3%. NCI Lifetime model risk: 7.7%. Prior Study Comparison: 08/27/2018 Left Diagnostic Mammogram, [facility]. 09/16/2019 Bilateral Diagnostic Mammogram, [facility]. 09/20/2020 Bilateral Screening Mammogram, [facility]. 10/18/2021 Bilateral MG 3D screening mammo w/cad, [facility]. 10/20/2022 Bilateral MG 3D screening mammo w/cad, [facility]. 10/23/2023 Bilateral MG 3D screening mammo w/cad, [facility]. 10/26/2023 Right MG 3D work up w/cad RT, [facility]. Tissue Density: Right: There are scattered areas of fibroglandular density. Pathology Description: Location: retroareolar. Marker Left Behind. Needle Type: Celero Cores: 4 Gauge: 12 The procedure of ultrasound guided core biopsy was explained to the patient. Benefits, alternatives, and risks were discussed. An informed consent was then obtained. The patient was placed in supine positioning for imaging and for the procedure. The overlying skin was prepped and draped in usual sterile fashion. Lidocaine buffered with bicarbonate was used as anesthetic into the skin and subcutaneous tissue up to area of concern in the right periareolar breast. A arnol was made with surgical scalpel. Under ultrasound guidance, a 12-gauge vacuum assisted biopsy gun device was used to obtain 4 core samples. Following this, a biopsy clip was left in lesion. The patient tolerated the procedure well without any immediate complication. The patient was kept in the radiology department for short stay after the procedure and then discharged home in stable condition. Postprocedure mammogram: The patient was transferred to mammography for physician ordered post procedure mammogram for clip placement verification. Impression: Successful, uncomplicated ultrasound guided core biopsy of area of concern in the right periareolar breast, full pathology results to follow. Pathology Results: Result: Malignant, Invasive ductal carcinoma. Pathology and radiology were reviewed. Findings are concordant. RIGHT BREAST, POSTERIOR NIPPLE, NEEDLE CORE BIOPSY: Invasive well differentiated ductal carcinoma (Grade 1) and focal low grade DCIS. See Surgical Pathology Cancer Case Summary and Comment. Overall Assessment: Malignant Assessment: MG diagnostic mammo RT wo CAD - Right: Known biopsy proven malignancy, BI-RAD 6. Management: Surgical Consultation of the right breast. Electronically signed and approved by: Jose Luis Perera M.D. Radiologis
== END ==
LOC: RADUSWWP 12:42
PROVIDERS: ATTEND Surgery
DX: D05.11 Intraductal carcinoma in situ of right breast (principal); Z17.0 Estrogen receptor positive status [ER+]; Z78.0 Asymptomatic menopausal state; E78.5 Hyperlipidemia, unspecified; E03.9 Hypothyroidism, unspecified; Z88.8 Allergy status to other drugs, medicaments and biological substances; Z91.018 Allergy to other foods; Z88.4 Allergy status to anesthetic agent; Z79.890 Hormone replacement therapy; Z79.899 Other long term (current) drug therapy
CPT/HCPCS: 77065; 19083; A4648

== ENCOUNTER → 2023-12-12 | Outpatient (CLI) | payer BC ==
[2023-12-12 11:44] VITALS: BP 126/84; PULSE 81; RESP 16; TEMP 98
--- NOTE | 2023-12-12 11:45 | P.PN ---
Subjective Progress Note Date: 12/12/23 Micaela is a 68 year old female with a history of left breast atypical ductal hyperplasia on 10-08-18. This was diagnosed with on open biopsy. bilateral mammogram on 10-23-23 personally reviewed and discussed with Dr. Hare, recommend mag views behind right nipple complex, no other lesions of concern; this led to a core biopsy (+) for invasive ductal cancer. She is not complaining of any new lumps masses or nodules of concern in either breast Case presented at tumor board on 12-11-23 oncotype recommended on surgical specimen Family history: Father: Lung cancer Maternal uncle: Stomach cancer Hormonal history: Menarche: 12 1 miscarriage, breast-fed: Yes, first child born at 23 Menopause: 50 Control pills: 3 years Hormones: Negative Past surgical history: 1. 3 C-sections 2. Tubal ligation 3. Hip replacement 4. Tonsils and adenoids 5. left breast biopsy 6. Cholecystectomy Past medical history: 1. Hypothyroid 2. Vertigo 3. Tendinitis 4. Reflux 5. Hiatal hernia (scheduled for surgery December 20, 2023) Social history: Smoking: Negative Alcohol: Negative Drugs: Negative - Constitutional Constitutional: Denies chills, Denies fever - EENT Eyes: denies blurred vision, denies pain Ears: deny: decreased hearing, tinnitus - Breasts Breasts: bilateral: as per HPI - Cardiovascular Cardiovascular: Denies chest pain, Denies shortness of breath - Respiratory Respiratory: Denies cough - Gastrointestinal Comment: reflux, IBS - Genitourinary (Female) Genitourinary: Denies dysuria, Denies hematuria - Menstruation Menstruation: Reports postmenopausal - Musculoskeletal Comment: arthritis - Integumentary Comment: exczema - Neurological Neurological: Denies numbness, Denies weakness - Psychiatric Psychiatric: Reports anxiety, Reports depression - Endocrine Endocrine: Denies fatigue, Denies weight change - Hematologic/Lymphatic Comment: none - Allergic/Immunologic Allergic/Immunologic: Reports seasonal allergies Objective - Constitutional General appearance: Present: cooperative - EENT Eyes: Present: EOMI ENT: Present: hearing grossly normal - Neck Neck: Present: normal ROM - Respiratory Respiratory: bilateral: CTA - Cardiovascular Rhythm: regular Heart sounds: normal: S1, S2 - Gastrointestinal General gastrointestinal: Present: soft - Integumentary Integumentary: Present: normal turgor - Musculoskeletal Musculoskeletal: Present: gait normal - Psychiatric Psychiatric: Present: A&O x's 3, appropriate affect, intact judgment & insight - Additional findings Additional findings: Breast Exam: BRA: 2XL Inspection: bilateral grade 3 ptosis inspection: Right breast: Multi positional exam fibrocystic changes, no dominant masses or nodules of concern, particular attention to the area behind the nipple areolar complex does not reveal any dominant masses or nodules of concern Right axilla: No adenopathy of concern Left breast: Multi positional exam no dominant masses or nodules of concern Left axilla: No adenopathy of concern Assessment and Plan Assessment: Impression: History of atypical ductal hyperplasia and open biopsy of the left breast 2019 declined chemoprophylaxis Bilateral mammogram 10-23-2023 increasing microcalcifications behind the right nipple areolar complex for which mag views and possible stereotactic core biopsy have been recommended ultrasound guided core biopsy of the right breast done G2 ER/MI+ Her 2(-) Plan: right breast needle localization, this is going to be done via a right mastopexy incision, right breast lumpectomy, right sentinal node injection, right sentinal node biopsy, possible right axillary node dissection, possible right oncoplastic tissue transfer pre-op clearance Dr. Lei Risk and benefits of the procedure discussed with the patient. Risk include but are not limited to bleeding, infection, reaction to the anesthetic. She understands that if the margins were to be positive that further tissue acquisition may be necessary. She also understands that if the tumor extends into the nipple areolar complex at the time of surgery then the nipple areolar complex will be removed. She understands that the nipple areolar complex location will be asymmetric following the surgery. Additional risks related to the sentinel node biopsy include numbness to the upper arm, lymphedema, possible injury to the thoracodorsal or long thoracic nerves. Additionally it may be necessary to use methylene blue and there which could be some tissue necrosis related to the methylene blue. functonal assessment: arm abduction passed pre-op education given CC: Dr. Lei
== END ==
LOC: WWCWWP 10:40
PROVIDERS: ATTEND Surgery
DX: R92.8 Other abnormal and inconclusive findings on diagnostic imaging of breast (principal); R92.0 Mammographic microcalcification found on diagnostic imaging of breast; N60.92 Unspecified benign mammary dysplasia of left breast; N64.89 Other specified disorders of breast; Z88.6 Allergy status to analgesic agent; Z88.8 Allergy status to other drugs, medicaments and biological substances; Z91.011 Allergy to milk products

== ENCOUNTER → 2023-12-25 | Day surgery (SDC) | payer BC ==
[~2023-12-25] MED LIST changes: -DEXAMETHASONE SOD PHOSPHATE 10 MG/ML 1 ML VIAL IV ONE; +GLYCOPYRROLATE 0.2 MG/ML 2 ML VIAL ONE; -HEPARIN SODIUM,PORCINE 5,000 UNIT/ML 1 ML VIAL SQ ONE; +HYDROmorphone (PF) 1 MG/ML ONE; -LACTATED RINGERS 1,000 ML IV SCH; -LIDOCAINE 1% 20 ML VIAL (10MG/ML) FOR IV START INTRADERMA PRN; -MIDAZOLAM 2 MG/2 ML VIAL IV PRN; +MIDAZOLAM 2 MG/2 ML VIAL ONE; +NEOSTIGMINE 1 MG/ML 10 ML VIAL ONE; -ONDANSETRON 4 MG/2 ML VIAL IVP ONE; +PHENYLEPHRINE-0.9% NACL SYG 1,000 MCG/10 ML SYRINGE ONE; +PROPOFOL 10 MG/ML 20 ML VIAL IV ONE; -Pre Op ABX Message 1 EACH MISC MISCELLANE ONE; +ROCURONIUM 10 MG/ML (5 ML VIAL) IV ONE; -SCOPOLAMINE 1.5MG/72HR PATCH TRANSDERM ONE; +SUCCINYLCHOLINE CHLORIDE 200 MG/10 ML VIAL IV ONE; +SUGAMMADEX SODIUM 200 MG/2 ML SDV IV ONE; +ePHEDrine 50 MG/ML 1 ML VIAL ONE; +fentaNYL (PF) 50 MCG/ML 2 ML AMP ONE
[2023-12-25] MEDS: IV FLUID CONTINUATION 1,000 ML IV ONE (10:54)
[2023-12-25] MEDS: LACTATED RINGERS 1,000 ML IV SCH (11:09)
[2023-12-25] MEDS: ACETAMINOPHEN TAB 500 MG TAB PO PRN (11:10)
[2023-12-25] MEDS: ONDANSETRON 4 MG/2 ML VIAL IVP ONE (11:12)
[2023-12-25] MEDS: ALPRAZolam 0.25 MG TAB PO STA (11:18)
[2023-12-25] MEDS: LIDOCAINE 1% INJ 10MG/ML (20 ML MDV) SQ ONE ×3 (11:52→15:10)
[2023-12-25] MEDS: HEPARIN SODIUM,PORCINE 5,000 UNIT/ML 1 ML VIAL SQ PRN (12:38)
--- NOTE | 2023-12-25 12:43 | P.NAPBC ---
NAPBC Queries - NAPBC Queries Was patient's case review presented at [facility] tumor board? If no, comment.: Yes Was patient's pathology reviewed at [facility]? If no, comment.: Yes Was breast conservation surgery offered? If no, comment.: Yes Was sentinel node biopsy offered? If no, comment.: Yes Was diagnosis confirmed by percutaneous core biopsy? If no, comment.: Yes Is patient mastectomy patient?: No Was a preop referral to reconstructive surgeon offered?: No Clinical Stage: right breast [id number] stage I invasive ductal cancer
[2023-12-25] MEDS: LIDOCAINE 1% (10MG/ML) FOR IV START INTRADERMA PRN (13:47)
--- NOTE | 2023-12-25 14:26 | NM ---
EXAMINATION TYPE: NM sentinel node injection DATE OF EXAM: 12/25/2023 COMPARISON: NONE CLINICAL INDICATION: Female, 68 years old with history of RIGHT BREAST CA; TECHNIQUE AND FINDINGS: The procedure of sentinel lymph node injection was explained to the patient. The benefits, alternatives, and risks were discussed. An informed consent was then obtained. Overlying skin is cleaned with sterile alcohol. Following this, 511 uCi Tc99m Tilmanocept was inject ed in the upper outer aspect of the right nipple intradermally. The patient tolerated the procedure well without any immediate complication. The patient was kept in the radiology department for short stay after the procedure and then taken to surgery for surgical p rocedure what is presumed intraoperative gamma probe will be used for sentinel lymph node detection. IMPRESSION: right breast radiotracer injection for sentinel node localization as above.
[2023-12-25] MEDS: LACTATED RINGERS 1,000 ML IV ONE (14:35)
--- NOTE | 2023-12-25 15:11 | P.BCAON ---
Date of Procedure: 12/25/23 Preoperative Diagnosis: Right breast invasive ductal carcinoma stage I Postoperative Diagnosis: Same Procedure(s) Performed: Right breast needle localization lumpectomy, mastopexy, oncoplastic tissue transfer 40 cm, sentinel node biopsy Anesthesia: CATHERINE Surgeon: Meme Ortez Estimated Blood Loss (ml): 10 IV fluids (ml): 1,000 Pathology: other ([place] lymph node, breast tissue) Condition: stable Disposition: same day Indications for Procedure: Right breast invasive ductal carcinoma Operative Findings: Fibrofatty breast tissue Description of Procedure: The patient was seen first in the radiology department where needle localization of the tumor in the right breast was performed. Additionally radiotracer was placed in the periareolar region. The patient was then brought to the operative suite. Following induction of anesthesia the neoprobe was used to interrogate the axilla. Radiotracer had traveled to the axilla. The right breast and axilla were then prepped and draped in a sterile fashion. The axilla was approached initially. An incision was made over the area of greatest radioactivity. Dissection was carried down and radioactive lymph node which was palpable was identified. This was grasped using an Allis clamp. This was excised using the harmonic scalpel. The 10-second count of the lymph node was 12,7 85, the background 10-second count was minimal. No other radioactive or palpable lymph nodes of concern were identified. The wound was well irrigated. The deep tissues were closed using 3-0 Vicryl suture. The skin was closed using 3-0 Vicryl subcutaneous suture and a 4-0 Monocryl subcuticular suture. The area of the breast was then approached. In the preoperative area markings for a mastopexy incision had been made. The apex on the meridian line was 3 cm from the areolar edge. This tissue was de-epithelialized. The breast parenchyma was entered at the lateral aspect near the needle insertion site on the breast. Dissection was performed down to the shaft of the needle. This was dissected to the hook of the needle area and surrounding tissue was excised. The area of excision was 5 x 4 cm. Following this palpation revealed that the lesion appeared to be close anteriorly and posteriorly an additional anterior and posterior tissue posterior tissue were obtained. Posteriorly dissection was onto the area of the pectoralis muscle. All of these specimens were painted for orientation. Radiograph of the specimen revealed the area of concern had been removed. Following this a superior/medial pillar which was 4 x 3 cm was formed. An a lateral pillar 4 x 2 cm was formed. The wound was well irrigated and examined for hemostasis. After we are sure that hemostasis was attained Surgicel in powder form was placed. Titanium surgical clips were placed to [place] the cavity. The superior medial and lateral pillars were brought together using 3-0 Vicryl suture. Following this the mastopexy incision was closed in interrupted layers using 3 oh deep suture followed by a 4-0 Monocryl subcuticular suture. Surgical glue was applied. 10 cc of 1% lidocaine was injected into the incision sites. The patient tolerated the procedure in stable condition. All instrument and sponge counts were correct at the end of the case. - Sentinal Node Biopsy Operation performed with curative intent: Yes Tracer(s) used in upfront surgery (non-neoadjuvant): radioactive tracer Tracer(s) used in the neoadjuvant setting: N/A All nodes present at end of dye-filled channel removed: N/A All significantly radioactive nodes were removed: Yes All palpably suspicious nodes were removed: Yes Clipped positive nodes identified and removed: N/A
[2023-12-25 15:37] VITALS: RESP 14; TEMP 96.8
[2023-12-25] MEDS: HYDROmorphone 0.5 MG/0.5 ML SYRINGE IVP PRN (15:50)
[2023-12-25 16:31] VITALS: PULSE 65
[2023-12-25 16:49] VITALS: BP 117/69
[2023-12-25] MEDS: ARTIFICIAL TEARS-HYPROMELLOSE DROPS 15 ML BTL BOTH EYES STA (17:51)
--- NOTE | 2024-01-04 14:36 | MM ---
Reason for Exam: Post Procedure Mammogram. Last screening mammogram was performed 2 month(s) ago. Patient History: Menarche at age 12. First Full-Term at age 23. Postmenopausal. Patient has history of breast feeding. Breast cancer, right, age 67. Hormonal Contraceptives for 6 years from age 18 until age 46. 11/15/2023, Malignant US biopsy breast VAD RT on the right side. 10/08/2018, High risk Core Biopsy on the left side. 08/27/2018, Benign Core Biopsy on the left side. Prior Study Comparison: 10/23/2023 Bilateral MG 3D screening mammo w/cad, [facility]. 10/26/2023 Right MG 3D work up w/cad RT, [facility]. 11/15/2023 Right MG diagnostic mammo RT wo CAD, [facility]. Tissue Density: Right: There are scattered areas of fibroglandular density. Pathology Description: Location: retroareolar. Pathology Description: Location: retroareolar. Needle Type: 5 cm [place] Informed consent was obtained and all the patient's questions were answered. The lesion in question was localized with graphically The standard sterile technique was utilized, as well as appropriate local anesthesia with 1% Lidocaine and bicarbonate. Localization needle followed by placement of a guidewire was performed under sonographic guidance. Verification images demonstrate appropriate deployment of the guidewire. The patient tolerated the procedure well and left the department in stable condition. Specimen radiograph demonstrates the guidewire, clip and lesion in question to reside within the specimen. IMPRESSION: Successful needle localization and open biopsy right breast with pathology results pending. Pathology Results: Result: Malignant, Invasive ductal carcinoma. Pathology and radiology were reviewed. Findings are concordant. A. RIGHT BREAST, LUMPECTOMY: Invasive well differentiated ductal carcinoma (Grade 1) and low grade DCIS, margins negative for invasive malignancy or DCIS. Invasive tumor closely approximates the anterior margin (tumor is much less than 1 mm from the anterior margin). Lobular neoplasia (ALH/LCIS), intraductal papilloma not involving margins, background fibrocystic changes and previous biopsy site. See Surgical Pathology Cancer Case Summary. B. RIGHT BREAST SENTINEL LYMPH NODE: Lymph node negative for metastasis. CK7 immunostain performed on block B1, HEYDI immunostain performed on block B2, CKAE1/3 immunostain performed on block B3, and MOC31 immunostain performed on block B5 are confirmatory (controls appropriate). C. RIGHT BREAST, NEW POSTERIOR MARGIN/SURFACE: Benign breast with fibrocystic changes and previous biopsy site/procedure related changes. D. RIGHT BREAST, NEW ANTERIOR MARGIN: Benign fibroadipose tissue and breast tissue with fibrocystic changes. Overall Assessment: Malignant Assessment: MG diagnostic mammo RT wo CAD - Right: Known biopsy proven malignancy, BI-RAD 6. Management: Surgical Consultation of the right breast. Diagnostic Breast MRI of both breasts. MRI to evaluate breasts. Electronically signed and approved by: Jose Luis Perera M.D. Radiologis
== END | disposition home or self-care (01) ==
LOC: OR 10:26
PROVIDERS: ATTEND Surgery
DX: D05.11 Intraductal carcinoma in situ of right breast (principal); Z78.0 Asymptomatic menopausal state; Z85.3 Personal history of malignant neoplasm of breast
CPT/HCPCS: 19301; 88342; 88307; 88341; 77065; 76098; 76999; 19285; 38792; C1819; A9520; J2250; J0330; J1644; J2710; J0690; J2405; J2001; J3010; J1170 ×2; J2704; J2371; J1596

== ENCOUNTER → 2024-01-03 | Outpatient (CLI) | payer BC ==
[2024-01-03 12:05] VITALS: BP 148/80; PULSE 95; RESP 17; TEMP 98.3
--- NOTE | 2024-01-03 12:09 | P.BCPO ---
Progress Note - Text Progress Note Date: 01/03/24 Micaela is status post right breast lumpectomy and SNB on 12-26-23. Her margins were (-) SNB (-). Tumor size 1 cm. She has done well post-op. Examination: lungs: clear heart: RRR incision breast and axilla clean and dry Plan: follow up with medical and radiation oncology follow up here in 4 months Post Op Education - Post Op Education Post Op Education Provided Date: 01/03/24 - Functional Assessment Performed?: Yes (passes arm abduction) Path Report - Was patient given path report? Path Report Date Given: 01/03/24
== END ==
LOC: WWCWWP 11:55
PROVIDERS: ATTEND Surgery
DX: Z48.817 Encounter for surgical aftercare following surgery on the skin and subcutaneous tissue (principal); Z85.3 Personal history of malignant neoplasm of breast; Z98.890 Other specified postprocedural states; Z91.011 Allergy to milk products; Z88.8 Allergy status to other drugs, medicaments and biological substances

== ENCOUNTER 2024-02-27 06:34 | Emergency (ER) | payer BC ==
--- NOTE | 2024-02-27 06:56 | ED ---
Dizziness HPI - General Chief Complaint: Dizziness Stated Complaint: nausea/lightheaded Time Seen by Provider: 02/27/24 06:55 Source: patient, RN notes reviewed, old records reviewed Mode of arrival: ambulatory Limitations: no limitations - History of Present Illness Initial Comments: 68-year-old female presented to ER with a chief complaint of dizziness. Patient is currently undergoing radiation treatment for breast cancer. Last radiation was yesterday. Patient reports she woke up around 6 3 AM to a "pressure" sensation moving up her legs and body. She states this lasted for approximately 1 minute and then resolved to a tingling sensation that resolved shortly after. She states she was laying on her left side when this happened and she was feeling dizzy as if the room was spinning. She states she sat up and dizziness improved. She went to the bathroom and had 2 bowel movements. She states since then she has been feeling nauseous with 1 episode of dry heaving's. No actual vomiting. No diarrhea or constipation. No fevers. Patient denies any chest pain, shortness of breath, current dizziness or lightheadedness. Patient does report a history of vertigo. No other complaints - Related Data Home Medications Medication Instructions Recorded Confirmed Fish Oil/Dha/Epa [Fish Oil 1,200 1 cap PO HS 05/19/14 01/03/24 mg Fish Oil] L.acid/L.casei/B.bif/B.raphael/Fos 1 cap PO HS 05/19/14 01/03/24 [Probiotic Blend Capsule] Multivitamins, Thera [Multivitamin 1 tab PO QAM 05/19/14 01/03/24 (formulary)] Simvastatin [Zocor] 20 mg PO HS 05/19/14 01/03/24 Ubidecarenone [Co Q-10] 100 mg PO QAM 05/19/14 01/03/24 Levothyroxine Sodium [Synthroid] 75 mcg PO QAM 12/21/15 01/03/24 Vits A,C,E/Lutein/Minerals 1 tab PO HS 12/21/15 01/03/24 [Ocuvite with Lutein Tablet] Glucosamine/Chondr Rhodes A Sod [Osteo 1 tab PO HS 06/14/16 01/03/24 Bi-Flex Caplet] Turmeric Root Extract [Turmeric] 500 mg PO HS 06/14/16 01/03/24 ALPRAZolam [Xanax] 0.25 mg PO DAILY PRN 11/29/16 01/03/24 Cholecalciferol (Vitamin D3) 2,000 unit PO QAM 11/29/16 01/03/24 [Vitamin D3] Omeprazole [PriLOSEC] 20 mg PO AC-BRKFST 10/02/18 01/03/24 DULoxetine HCL [Cymbalta] 30 mg PO DAILY 09/23/20 01/03/24 Montelukast [Singulair] 10 mg PO DAILY 12/25/23 01/03/24 Allergies Allergy/AdvReac Type Severity Reaction Status Date / Time buspirone [From BuSpar] AdvReac Increased Verified 02/27/24 06:38 Anxiety clonazepam [From Klonopin] AdvReac Hallucinati Verified 02/27/24 06:38 ons ketamine AdvReac Hallucinations Verified 02/27/24 06:38 & Muscle Spasms lactose AdvReac Intolerant Verified 02/27/24 06:38 Review of Systems ROS Statement: Those systems with pertinent positive or pertinent negative responses have been documented in the HPI. ROS Other: All systems not noted in ROS Statement are negative. Past Medical History Past Medical History: Cancer, GERD/Reflux, Hyperlipidemia, Osteoarthritis (OA), Skin Disorder, Thyroid Disorder Additional Past Medical History / Comment(s): hx optical migraines. vertigo. hx kidney stones. eczema. dermatitis. hiatal herniA. IBS. hiatal hernia. tinnitus History of Any Multi-Drug Resistant Organisms: None Reported Past Surgical History: Adenoidectomy, Section, Cholecystectomy, Joint Replacement, Tonsillectomy, Tubal Ligation, Tubal Ligation Additional Past Surgical History / Comment(s): left hip replacement. C-sections x3. D & C Past Anesthesia/Blood Transfusion Reactions: Previous Problems w/ Anesthesia, Motion Sickness Additional Past Anesthesia/Blood Transfusion Reaction / Comment(s): Ketamine caused involuntary muscle movements and hallucinations. Past Psychological History: Anxiety, Depression Smoking Status: Never smoker Past Alcohol Use History: None Reported Past Drug Use History: None Reported - Past Family History Father Family Medical History: Cancer, Hypertension Additional Family Medical History / Comment(s): Father of lung cancer at age 69 yrs. Mother Family Medical History: Hypertension Additional Family Medical History / Comment(s): passed from complications of myasthenia gravis General Exam Limitations: no limitations General appearance: alert, in no apparent distress Head exam: Present: atraumatic, normocephalic, normal inspection Eye exam: Present: normal appearance, PERRL, EOMI. Absent: scleral icterus, conjunctival injection, periorbital swelling Pupils: Present: normal accommodation ENT exam: Present: normal exam, normal oropharynx, mucous membranes moist Respiratory exam: Present: normal lung sounds bilaterally. Absent: respiratory distress, wheezes, rales, rhonchi, stridor Cardiovascular Exam: Present: regular rate, normal rhythm, normal heart sounds. Absent: systolic murmur, diastolic murmur, rubs, gallop, clicks Neurological exam: Present: alert, oriented X3, CN II-XII intact Skin exam: Present: warm, dry, intact, normal color. Absent: rash Course Vital Signs 02/27/24 02/27/24 02/27/24 06:35 09:17 10:07 Temperature 97.5 F L Pulse Rate 110 H 77 72 Respiratory 20 18 18 Rate Blood Pressure 140/91 131/85 129/81 O2 Sat by Pulse 97 96 100 Oximetry 02/27/24 10:34 Temperature 98.1 F Pulse Rate 80 Respiratory 18 Rate Blood Pressure 127/84 O2 Sat by Pulse 98 Oximetry EKG Findings - EKG Comments: EKG Findings:: EKG taken at 6: 44 showing a sinus tachycardia. No acute ST segment or T wave abnormalities. Ventricular rate 100, OK interval 159, QRS duration 79, QT/QTc 335/392 Medical Decision Making - Medical Decision Making Was pt. sent in by a medical professional or institution ([facility] Delgado, EMOTIONALLY IMPAIRED TEACHER, urgent care, hospital, or [place] health care facility...) When possible be specific @ -No Did you speak to anyone other than the patient for history (EMS, parent, family, police, friend...)? What history was obtained from this source @ -No Did you review nursing and triage notes (agree or disagree)? Why? @ -I reviewed and agree with nursing and triage notes Were old charts reviewed (outside hosp., previous admission, EMS record, old EKG, old radiological studies, urgent care reports/EKG's, [place] health care facility records)? Report findings @ -No old charts were reviewed Differential Diagnosis (chest pain, altered mental status, abdominal pain women, abdominal pain men, vaginal bleeding, weakness, fever, dyspnea, syncope, headache, dizziness, GI bleed, back pain, seizure, CVA, palpatations, mental health, musculoskeletal)? @ -Differential Dizziness:Benign paroxysmal positional Vertigo, Meniere's disease, otitis media, acoustic neuroma, vertebrobasilar insufficiency, cerebellar stroke, encephalitis, hypovolemic, arrhythmia, coronary artery syndrome, anemia, this is not meant to be an all-inclusive list EKG interpreted by me (3pts min.). @ -As above X-rays interpreted by me (1pt min.). @ -CXR interpreted by me negative for focal consolidation, pneumothorax or pleural effusion. CT interpreted by me (1pt min.). @ -None done U/S interpreted by me (1pt. min.). @ -None done What testing was considered but not performed or refused? (CT, X-rays, U/S, labs)? Why? @ -None What meds were considered but not given or refused? Why? @ -None Did you discuss the management of the patient with other professionals (professionals i.e. , PA, EMOTIONALLY IMPAIRED TEACHER, lab, RT, psych nurse, social worker school, automobile rental representative, teacher, first officer, case technician)? Give summary @ -No Was smoking cessation discussed for >3mins.? @ -No Was critical care preformed (if so, how long)? @ -No Were there social determinants of health that impacted care today? How? (Homelessness, low income, unemployed, alcoholism, drug addiction, transportation, low edu. Level, literacy, decrease access to med. care, prison, rehab)? @ -No Was there de-escalation of care discussed even if they declined (Discuss DNR or withdrawal of care, Hospice)? DNR status @ -No What co-morbidities impacted this encounter? (DM, HTN, Smoking, COPD, CAD, Cancer, CVA, ARF, Chemo, Hep., AIDS, mental health diagnosis, sleep apnea, morbid obesity)? @ -Currently undergoing radiation for breast cancer, thyroid disorder Was patient admitted / discharged? Hospital course, mention meds given and route, prescriptions, significant lab abnormalities, going to OR and other pertinent info. @ -Discharged. 68-year-old female presented to ER with a chief complaint of dizziness. History and physical exam completed. Vitals within normal limits. Patient has no signs of acute distress nontoxic-appearing. Patient denying any current pain. CBC unremarkable. CMP mild signs of dehydration for which patient received 1 L IV fluid bolus. TSH of 5.02, free T4 1.35. Urinalysis and viral swabs negative. Chest x-ray negative. EKG showing a sinus tachycardia with no acute evidence of infarct. Symptoms believed to be related to vertigo. Patient was given IV Protonix as she states she forgot to take it this morning and was complaining of acid reflux. Upon reevaluation, patient resting comfortably in exam room no signs of acute distress. Patient is eager for discharge. Strict return parameters discussed. Patient discharged in stable condition with follow-up to PCP. Patient verbally expressed understanding and agreement with care plan. Case discussed with ED attending, Dr. Sabillon. Undiagnosed new problem with uncertain prognosis? @ -No Drug Therapy requiring intensive monitoring for toxicity (Heparin, Nitro, Insulin, Cardizem)? @ -No Were any procedures done? @ -No Diagnosis/symptom? @ -Dizziness Acute, or Chronic, or Acute on Chronic? @ -Acute Uncomplicated (without systemic symptoms) or Complicated (systemic symptoms)? @ -Uncomplicated Side effects of treatment? @ -No Exacerbation, Progression, or Severe Exacerbation? @ -No Poses a threat to life or bodily function? How? (Chest pain, [place], [place], pneumonia, PE, COPD, DKA, ARF, appy, cholecystitis, CVA, Diverticulitis, Homicidal, Suicidal, threat to staff... and all critical care pts) @ -No - Lab Data Result diagrams: 02/27/24 06:44 02/27/24 06:44 Lab Results 02/27/24 02/27/24 02/27/24 Range/Units 06:44 06:44 06:44 WBC 7.9 (3.8-10.6) k/uL RBC 4.90 (3.80-5.40) m/uL Hgb 15.4 (11.4-16.0) gm/dL Hct 47.6 H (34.0-46.0) % MCV 97.2 (80.0-100.0) fL MCH 31.5 (25.0-35.0) pg MCHC 32.4 (31.0-37.0) g/dL RDW 12.5 (11.5-15.5) % Plt Count 358 (150-450) k/uL MPV 6.6 Neutrophils % 78 % Lymphocytes % 11 % Monocytes % 7 % Eosinophils % 2 % Basophils % 1 % Neutrophils # 6.2 (1.3-7.7) k/uL Lymphocytes # 0.8 L (1.0-4.8) k/uL Monocytes # 0.5 (0-1.0) k/uL Eosinophils # 0.2 (0-0.7) k/uL Basophils # 0.0 (0-0.2) k/uL PT 10.4 (10.0-12.5) sec INR 0.9 (<1.2) APTT 26.7 (22.0-30.0) sec Sodium 139 (137-145) mmol/L Potassium 3.9 (3.5-5.1) mmol/L Chloride 109 H (98-107) mmol/L Carbon Dioxide 23 (22-30) mmol/L Anion Gap 7 mmol/L BUN 13 (7-17) mg/dL Creatinine 0.71 (0.52-1.04) mg/dL Est GFR (CKD-EPI)AfAm >90 (>60 ml/min/1.73 sqM) Est GFR (CKD-EPI)NonAf 88 (>60 ml/min/1.73 sqM) Glucose 103 H (74-99) mg/dL Calcium 9.2 (8.4-10.2) mg/dL Magnesium 2.1 (1.6-2.3) mg/dL Total Bilirubin 0.5 (0.2-1.3) mg/dL AST 25 (14-36) U/L ALT 17 (4-34) U/L Alkaline Phosphatase 74 (38-126) U/L Troponin I (0.000-0.034) ng/mL Total Protein 7.0 (6.3-8.2) g/dL Albumin 4.1 (3.5-5.0) g/dL TSH (0.465-4.680) mIU/L Free T4 (0.78-2.19) ng/dL Urine Color Urine Appearance (Clear) Urine pH (5.0-8.0) Ur Specific [place] (1.001-1.035) Urine Protein (Negative) Urine Glucose (UA) (Negative) Urine Ketones (Negative) Urine Blood (Negative) Urine Nitrite (Negative) Urine Bilirubin (Negative) Urine Urobilinogen (<2.0) mg/dL Ur Leukocyte Esterase (Negative) Influenza Type A (PCR) (Not Detectd) Influenza Type B (PCR) (Not Detectd) RSV (PCR) (Not Detectd) SARS-CoV-2 (PCR) (Not Detectd) 02/27/24 02/27/24 02/27/24 Range/Units 06:44 06:44 07:19 WBC (3.8-10.6) k/uL RBC (3.80-5.40) m/uL Hgb (11.4-16.0) gm/dL Hct (34.0-46.0) % MCV (80.0-100.0) fL MCH (25.0-35.0) pg MCHC (31.0-37.0) g/dL RDW (11.5-15.5) % Plt Count (150-450) k/uL MPV Neutrophils % % Lymphocytes % % Monocytes % % Eosinophils % % Basophils % % Neutrophils # (1.3-7.7) k/uL Lymphocytes # (1.0-4.8) k/uL Monocytes # (0-1.0) k/uL Eosinophils # (0-0.7) k/uL Basophils # (0-0.2) k/uL PT (10.0-12.5) sec INR (<1.2) APTT (22.0-30.0) sec Sodium (137-145) mmol/L Potassium (3.5-5.1) mmol/L Chloride (98-107) mmol/L Carbon Dioxide (22-30) mmol/L Anion Gap mmol/L BUN (7-17) mg/dL Creatinine (0.52-1.04) mg/dL Est GFR (CKD-EPI)AfAm (>60 ml/min/1.73 sqM) Est GFR (CKD-EPI)NonAf (>60 ml/min/1.73 sqM) Glucose (74-99) mg/dL Calcium (8.4-10.2) mg/dL Magnesium (1.6-2.3) mg/dL Total Bilirubin (0.2-1.3) mg/dL AST (14-36) U/L ALT (4-34) U/L Alkaline Phosphatase (38-126) U/L Troponin I <0.012 (0.000-0.034) ng/mL Total Protein (6.3-8.2) g/dL Albumin (3.5-5.0) g/dL TSH 5.020 H (0.465-4.680) mIU/L Free T4 1.35 (0.78-2.19) ng/dL Urine Color Urine Appearance (Clear) Urine pH (5.0-8.0) Ur Specific [place] (1.001-1.035) Urine Protein (Negative) Urine Glucose (UA) (Negative) Urine Ketones (Negative) Urine Blood (Negative) Urine Nitrite (Negative) Urine Bilirubin (Negative) Urine Urobilinogen (<2.0) mg/dL Ur Leukocyte Esterase (Negative) Influenza Type A (PCR) Not Detected (Not Detectd) Influenza Type B (PCR) Not Detected (Not Detectd) RSV (PCR) Not Detected (Not Detectd) SARS-CoV-2 (PCR) Not Detected (Not Detectd) 02/27/24 Range/Units 07:31 WBC (3.8-10.6) k/uL RBC (3.80-5.40) m/uL Hgb (11.4-16.0) gm/dL Hct (34.0-46.0) % MCV (80.0-100.0) fL MCH (25.0-35.0) pg MCHC (31.0-37.0) g/dL RDW (11.5-15.5) % Plt Count (150-450) k/uL MPV Neutrophils % % Lymphocytes % % Monocytes % % Eosinophils % % Basophils % % Neutrophils # (1.3-7.7) k/uL Lymphocytes # (1.0-4.8) k/uL Monocytes # (0-1.0) k/uL Eosinophils # (0-0.7) k/uL Basophils # (0-0.2) k/uL PT (10.0-12.5) sec INR (<1.2) APTT (22.0-30.0) sec Sodium (137-145) mmol/L Potassium (3.5-5.1) mmol/L Chloride (98-107) mmol/L Carbon Dioxide (22-30) mmol/L Anion Gap mmol/L BUN (7-17) mg/dL Creatinine (0.52-1.04) mg/dL Est GFR (CKD-EPI)AfAm (>60 ml/min/1.73 sqM) Est GFR (CKD-EPI)NonAf (>60 ml/min/1.73 sqM) Glucose (74-99) mg/dL Calcium (8.4-10.2) mg/dL Magnesium (1.6-2.3) mg/dL Total Bilirubin (0.2-1.3) mg/dL AST (14-36) U/L ALT (4-34) U/L Alkaline Phosphatase (38-126) U/L Troponin I (0.000-0.034) ng/mL Total Protein (6.3-8.2) g/dL Albumin (3.5-5.0) g/dL TSH (0.465-4.680) mIU/L Free T4 (0.78-2.19) ng/dL Urine Color Colorless Urine Appearance Clear (Clear) Urine pH 6.0 (5.0-8.0) Ur Specific [place] 1.014 (1.001-1.035) Urine Protein Negative (Negative) Urine Glucose (UA) Negative (Negative) Urine Ketones Negative (Negative) Urine Blood Negative (Negative) Urine Nitrite Negative (Negative) Urine Bilirubin Negative (Negative) Urine Urobilinogen <2.0 (<2.0) mg/dL Ur Leukocyte Esterase Negative (Negative) Influenza Type A (PCR) (Not Detectd) Influenza Type B (PCR) (Not Detectd) RSV (PCR) (Not Detectd) SARS-CoV-2 (PCR) (Not Detectd) - Radiology Data Radiology results: report reviewed, image reviewed Disposition Clinical Impression: Dizziness Disposition: HOME SELF-CARE Condition: Stable Instructions (If sedation given, give patient instructions): Dizziness (ED) Additional Instructions: Follow-up with PCP. Return to the ER for any new or worsening concerns. Is patient prescribed a controlled substance at d/c from ED?: No Referrals: Ai Sabillon DO [Primary Care Provider] - 1-2 days Time of Disposition: 10:18
[2024-02-27 07:09] LABS: Basophils % (A) 1 %; Eosinophils # (A) 0.2 k/uL (0-0.7); Eosinophils % (A) 2 %; HCT 47.6 % (34.0-46.0); HGB 15.4 gm/dL (11.4-16.0); Lymphocytes # (A) 0.8 k/uL (1.0-4.8); Lymphocytes % (A) 11 %; MCH 31.5 pg (25.0-35.0); MCHC 32.4 g/dL (31.0-37.0); MCV 97.2 fL (80.0-100.0); Mean Platelet Volume 6.6; Monocytes # (A) 0.5 k/uL (0-1.0); Monocytes % (A) 7 %; Neutrophils # (A) 6.2 k/uL (1.3-7.7); Neutrophils % (A) 78 %; Platelet Count 358 k/uL (150-450); RDW 12.5 % (11.5-15.5); WBC 7.9 k/uL (3.8-10.6)
[2024-02-27] MEDS: SODIUM CHLORIDE 0.9% 1,000 ML IV STA (07:26)
[2024-02-27 07:29] LABS: ALT 17 U/L (4-34); AST 25 U/L (14-36); African American GFR (CKD) >90 (>60 ml/min/1.73 sqM); Albumin 4.1 g/dL (3.5-5.0); Alkaline Phosphatase 74 U/L (38-126); Anion Gap 7 mmol/L; Blood Urea Nitrogen 13 mg/dL (7-17); Calcium 9.2 mg/dL (8.4-10.2); Carbon Dioxide 23 mmol/L (22-30); Chloride 109 mmol/L (98-107); Glucose 103 mg/dL (74-99); Magnesium 2.1 mg/dL (1.6-2.3); Non-African American GFR(CKD) 88 (>60 ml/min/1.73 sqM); Potassium 3.9 mmol/L (3.5-5.1); Sodium 139 mmol/L (137-145); Total Bilirubin 0.5 mg/dL (0.2-1.3)
[2024-02-27 07:31] LABS: INR 0.9 (<1.2); Partial Thromboplastin Time 26.7 sec (22.0-30.0); Prothrombin Time 10.4 sec (10.0-12.5)
--- NOTE | 2024-02-27 07:52 | XR ---
EXAMINATION TYPE: XR chest 2V DATE OF EXAM: 02/27/2024 7:34 AM COMPARISON: 11/29/2016 CLINICAL INDICATION: Female, 68 years old with history of dizziness, TECHNIQUE: XR chest 2V view(s) obtained. FINDINGS: The heart size is normal. The pulmonary vasculature is normal. The lungs are clear. IMPRESSION: 1. No acute pulmonary process. [facility], , 02/27/2024 7:50 AM
[2024-02-27 09:01] LABS: Appearance,Urine Clear (Clear); Bilirubin,Urine Negative (Negative); Blood,Urine Negative (Negative); Color,Urine Colorless; Glucose,Urine (UA) Negative (Negative); Ketones,Urine Negative (Negative); Leukocyte Esterase,Urine Negative (Negative); Nitrite,Urine Negative (Negative); Protein,Urine Negative (Negative); Specific Gravity,Urine 1.014 (1.001-1.035); Urobilinogen,Urine <2.0 mg/dL (<2.0)
[2024-02-27 09:17] VITALS: RESP 18
[2024-02-27] MEDS: PANTOPRAZOLE 40 MG/10 ML VIAL IVP STA (10:33)
[2024-02-27 10:35] VITALS: BP 127/84; PULSE 80; TEMP 98.1
[2024-02-27 13:02] LABS: T4, Free (Free Thyroxine) 1.35 ng/dL (0.78-2.19)
== END 2024-02-27 10:43 | disposition home or self-care (01) ==
LOC: EC 06:34
DX: R42 Dizziness and giddiness (principal); C50.919 Malignant neoplasm of unspecified site of unspecified female breast; E07.9 Disorder of thyroid, unspecified; R00.0 Tachycardia, unspecified; Z11.52 Encounter for screening for COVID-19; Z88.8 Allergy status to other drugs, medicaments and biological substances; Z91.011 Allergy to milk products
CPT/HCPCS: 36415; 93005; 84439; 80053; 84443; 83735; 84484; 85025; 85610; 85730; 81003; 87636; 71046; 99284; 96374; 96361 ×3; J2470

== ENCOUNTER → 2024-05-02 | Outpatient (CLI) | payer BC ==
[2024-05-02 09:17] VITALS: BP 123/80; PULSE 98; RESP 16; TEMP 98.3
--- NOTE | 2024-05-02 09:20 | P.PN ---
Subjective Progress Note Date: 05/02/24 Principal diagnosis: right breast 1 cm IDC [id number]- dx. 11-15-23 05-02-24 Micaela is a 68 year old female with a history of left breast atypical ductal hyperplasia on 10-08-18. This was diagnosed with on open biopsy. bilateral mammogram on 10-23-23 personally reviewed and discussed with Dr. Hare, recommend mag views behind right nipple complex, no other lesions of concern; this led to a core biopsy (+) for invasive ductal cancer. status post lumpectomy and SNB on 12-26-23 (1 cm tumor all nodes -) note medical oncology 04-10-24 reviewed: oncotype 10, on anastrazole note radiation oncology 03-31-24: finished 16 fractions on 02-29-24 She is not complaining of any new lumps masses or nodules of concern in either breast Does have asymmetry of the breast with the left breast being larger and more ptotic than the right breast. This makes it difficult for her to find closed if it correctly and causes her anxiety. Case presented at tumor board on 12-11-23 oncotype recommended on surgical specimen Family history: Father: Lung cancer Maternal uncle: Stomach cancer Hormonal history: Menarche: 12 1 miscarriage, breast-fed: Yes, first child born at 23 Menopause: 50 Control pills: 3 years Hormones: Negative Past surgical history: 1. 3 C-sections 2. Tubal ligation 3. Hip replacement 4. Tonsils and adenoids 5. left breast biopsy 6. Cholecystectomy 7. right breast lumpectomy and SNB Past medical history: 1. Hypothyroid 2. Vertigo 3. Tendinitis 4. Reflux 5. Hiatal hernia (scheduled for surgery December 20, 2023) Social history: Smoking: Negative Alcohol: Negative Drugs: Negative - Constitutional Constitutional: Denies chills, Denies fever - EENT Eyes: denies blurred vision, denies pain Ears: deny: decreased hearing, tinnitus - Breasts Breasts: bilateral: as per HPI - Cardiovascular Cardiovascular: Denies chest pain, Denies shortness of breath - Respiratory Respiratory: Denies cough - Gastrointestinal Comment: reflux, IBS - Genitourinary (Female) Genitourinary: Denies dysuria, Denies hematuria - Menstruation Menstruation: Reports postmenopausal - Musculoskeletal Comment: arthritis - Integumentary Comment: exczema - Neurological Neurological: Denies numbness, Denies weakness - Psychiatric Psychiatric: Reports anxiety, Reports depression - Endocrine Endocrine: Denies fatigue, Denies weight change - Hematologic/Lymphatic Comment: none - Allergic/Immunologic Allergic/Immunologic: Reports seasonal allergies Objective - Constitutional General appearance: Present: cooperative - EENT Eyes: Present: EOMI ENT: Present: hearing grossly normal - Neck Neck: Present: normal ROM - Respiratory Respiratory: bilateral: CTA - Cardiovascular Rhythm: regular Heart sounds: normal: S1, S2 - Integumentary Integumentary: Present: normal turgor - Musculoskeletal Musculoskeletal: Present: gait normal - Psychiatric Psychiatric: Present: A&O x's 3, appropriate affect, intact judgment & insight - Additional findings Additional findings: Breast Exam: BRA: 2XL Inspection: bilateral grade 3 ptosis, asymmetry of the breast secondary to cancer surgery, left breast is larger than right breast inspection: Right breast: Multi positional exam fibrocystic changes, right lumpectomy incision clean and healed,no dominate masses or nodules of concern Right axilla: No adenopathy of concern Left breast: Multi positional exam no dominant masses or nodules of concern Left axilla: No adenopathy of concern Assessment and Plan Assessment: Impression: stage 1 IDC right breast lumpectomy on 12-25-23 on annetrazole completed radiation therapy Plan: bilateral mammogram in November 2024 with appointment at that time Left breast reduction mammoplasty Clearance Dr. Lei CC: Dr. Lei
== END ==
LOC: WWCWWP 08:57
PROVIDERS: ATTEND Surgery
DX: C50.911 Malignant neoplasm of unspecified site of right female breast (principal); Z92.3 Personal history of irradiation; Z91.011 Allergy to milk products; Z88.8 Allergy status to other drugs, medicaments and biological substances

== ENCOUNTER → 2024-06-27 | Outpatient (CLI) | payer BC ==
[2024-06-27 09:04] VITALS: BP 121/83; PULSE 107; RESP 17; TEMP 97.5
--- NOTE | 2024-06-27 09:57 | P.PN ---
Subjective Progress Note Date: 06/27/24 Principal diagnosis: right breast stage 1 IDC 202305/02/24 Principal diagnosis: right breast 1 cm IDC [id number] dx. 11-15-23 05-02-24 Micaela is a 68 year old female with a history of left breast atypical ductal hyperplasia on 10-08-18. This was diagnosed with on open biopsy. bilateral mammogram on 10-23-23 personally reviewed and discussed with Dr. Hare, recommend mag views behind right nipple complex, no other lesions of concern; this led to a core biopsy (+) for invasive ductal cancer. status post lumpectomy and SNB on 12-26-23 (1 cm tumor all nodes -) note medical oncology 04-10-24 reviewed: oncotype 10, on anastrazole note radiation oncology 03-31-24: finished 16 fractions on 02-29-24 She is not complaining of any new lumps masses or nodules of concern in either breast Does have asymmetry of the breast with the left breast being larger and more ptotic than the right breast. This makes it difficult for her to find clothes to fit correctly and causes her anxiety. Family history: Father: Lung cancer Maternal uncle: Stomach cancer Hormonal history: Menarche: 12 1 miscarriage, breast-fed: Yes, first child born at 23 Menopause: 50 Control pills: 3 years Hormones: Negative Past surgical history: 1. 3 C-sections 2. Tubal ligation 3. Hip replacement 4. Tonsils and adenoids 5. left breast biopsy 6. Cholecystectomy 7. right breast lumpectomy and SNB Past medical history: 1. Hypothyroid 2. Vertigo 3. Tendinitis 4. Reflux 5. Hiatal hernia (scheduled for surgery December 20, 2023) Social history: Smoking: Negative Alcohol: Negative Drugs: Negative - Constitutional Constitutional: Denies chills, Denies fever - EENT Eyes: denies blurred vision, denies pain Ears: deny: decreased hearing, tinnitus - Breasts Breasts: bilateral: as per HPI - Cardiovascular Cardiovascular: Denies chest pain, Denies shortness of breath - Respiratory Respiratory: Denies cough - Gastrointestinal Comment: reflux, IBS - Genitourinary (Female) Genitourinary: Denies dysuria, Denies hematuria - Menstruation Menstruation: Reports postmenopausal - Musculoskeletal Comment: arthritis - Integumentary Comment: exczema - Neurological Neurological: Denies numbness, Denies weakness - Psychiatric Psychiatric: Reports anxiety, Reports depression - Endocrine Endocrine: Denies fatigue, Denies weight change - Hematologic/Lymphatic Comment: none - Allergic/Immunologic Allergic/Immunologic: Reports seasonal allergies Objective - Vital Signs Vital signs: Vital Signs Temp 97.5 F L 06/27/24 09:01 Pulse 107 H 06/27/24 09:01 Resp 17 06/27/24 09:01 BP 121/83 06/27/24 09:01 Pulse Ox 96 06/27/24 09:01 FiO2 Intake & Output 06/26/24 06/27/24 06/27/24 18:59 06:59 18:59 Weight 102.965 kg - Constitutional General appearance: Present: cooperative - EENT Eyes: Present: EOMI ENT: Present: hearing grossly normal - Neck Neck: Present: normal ROM - Respiratory Respiratory: bilateral: CTA - Cardiovascular Heart sounds: normal: S1, S2 - Integumentary Integumentary: Present: normal turgor - Musculoskeletal Musculoskeletal: Present: gait normal - Psychiatric Psychiatric: Present: A&O x's 3, appropriate affect, intact judgment & insight - Additional findings Additional findings: Breast Exam: BRA: 2XL Inspection: bilateral grade 3 ptosis, asymmetry of the breast secondary to ca ncer surgery, left breast is larger than right breast inspection: Right breast: Multi positional exam fibrocystic changes, right lumpectomy incision clean and healed,no dominate masses or nodules of concern Right axilla: No adenopathy of concern Left breast: Multi positional exam no dominant masses or nodules of concern Left axilla: No adenopathy of concern Assessment and Plan Assessment: Impression: stage 1 IDC right breast lumpectomy on 12-25-23 on annetrazole completed radiation therapy Plan: left breast mammogram prior to surgery with follow up Left breast reduction mammoplasty Clearance Dr. Lei CC: Dr. Lei
--- NOTE | 2024-06-27 13:46 | MM ---
Reason for Exam: Screening (asymptomatic). Last screening mammogram was performed 8 month(s) ago. Patient History: Menarche at age 12. First Full-Term at age 23. Postmenopausal. Patient has history of breast feeding. Breast cancer, right, age 67. Breast cancer, right, age 68. Hormonal Contraceptives for 6 years from age 18 until age 46. 12/25/2023, Lumpectomy on the Right side. 12/25/2023, US breast surgical speciment RT on the Right side. 12/25/2023, Malignant US breast localization RT on the right side. 11/15/2023, Malignant US biopsy breast VAD RT on the right side. 10/08/2018, High risk Core Biopsy on the left side. 08/27/2018, Benign Core Biopsy on the left side. Prior Study Comparison: 10/26/2023 Right MG 3D work up w/cad RT, [facility]. 11/15/2023 Right MG diagnostic mammo RT wo CAD, [facility]. 12/25/2023 Right MG diagnostic mammo RT wo CAD, [facility]. Tissue Density: Left: The breasts are heterogeneously dense, which may obscure small masses. Findings: There is no suspicious group of microcalcifications or new suspicious mass in either breast. Overall Assessment: Negative, BI-RAD 1 Management: Screening Mammogram of both breasts in 1 year. . Patient should continue monthly self-breast exams. A clinical breast exam by your physician is recommended on an annual basis. This exam should not preclude additional follow-up of suspicious palpable abnormalities. Note on Julissa scores and lifetime risk: 1. A Julissa score greater than 3% is considered moderate risk. If this is the case, consider specialist referral to assess eligibility for a risk reducing agent. 2. If overall lifetime risk for the development of breast cancer is 20% or higher, the patient may qualify for future screening with alternating mammogram and breast MRI. [facility], , 06/27/2024 1:43 PM. Electronically signed and approved by: Jose Luis Perera M.D. Radiologis
== END ==
LOC: WWCWWP 08:53
PROVIDERS: ATTEND Surgery
DX: Z12.31 Encounter for screening mammogram for malignant neoplasm of breast (principal); C50.911 Malignant neoplasm of unspecified site of right female breast; Z92.3 Personal history of irradiation; Z88.6 Allergy status to analgesic agent; Z88.8 Allergy status to other drugs, medicaments and biological substances; E73.8 Other lactose intolerance
CPT/HCPCS: 77067

== ENCOUNTER 2024-07-08 07:02 | Day surgery (SDC) | payer BC ==
[2024-07-03 14:26] VITALS: BMI 37.4
[2024-07-08] MEDS: IV FLUID CONTINUATION 1,000 ML IV ONE (07:32)
[2024-07-08] MEDS: LACTATED RINGERS 1,000 ML IV SCH (07:40)
[2024-07-08] MEDS: ONDANSETRON 4 MG/2 ML VIAL IVP ONE (07:40)
[2024-07-08] MEDS: DEXAMETHASONE SOD PHOSPHATE 4 MG/ML 1 ML VIAL IV ONE (07:40)
[2024-07-08] MEDS: ACETAMINOPHEN TAB 500 MG TAB PO PRN (07:42)
[2024-07-08] MEDS: HEPARIN SODIUM,PORCINE 5,000 UNIT/ML 1 ML VIAL SQ PRN (07:42)
[2024-07-08] MEDS ORDERED: SUCCINYLCHOLINE CHLORIDE 200 MG/10 ML VIAL IV ONE (08:25)
[2024-07-08] MEDS ORDERED: PROPOFOL 10 MG/ML 20 ML VIAL IV ONE (08:25)
[2024-07-08] MEDS ORDERED: fentaNYL (PF) 50 MCG/ML 2 ML AMP ONE (08:25)
[2024-07-08] MEDS ORDERED: HYDROmorphone (PF) 1 MG/ML ONE (08:25)
[2024-07-08] MEDS ORDERED: PHENYLEPHRINE-0.9% NACL SYG 1,000 MCG/10 ML SYRINGE ONE (08:25)
[2024-07-08] MEDS ORDERED: MIDAZOLAM 2 MG/2 ML VIAL ONE (08:25)
[2024-07-08] MEDS ORDERED: LIDOCAINE 4% LTA KIT (4 ML) TOPICAL ONE (08:25)
[2024-07-08] MEDS ORDERED: LIDOCAINE 1% INJ 10MG/ML (20 ML MDV) ONE (08:25)
[2024-07-08] MEDS ORDERED: diphenhydrAMINE 50 MG/ML 1 ML VIAL ONE (08:25)
[2024-07-08] MEDS: LIDOCAINE 1% INJ 10MG/ML (20 ML MDV) SQ ONE (10:00)
[2024-07-08] MEDS: LACTATED RINGERS 1,000 ML IV ONE (10:06)
--- NOTE | 2024-07-08 11:06 | P.BCAON ---
Date of Procedure: 07/08/24 Preoperative Diagnosis: Asymmetry of the breast related to cancer treatment Postoperative Diagnosis: Same left breast macromastia Procedure(s) Performed: Left breast mammoplasty Anesthesia: PRASANTHA Surgeon: Meme Ortez Estimated Blood Loss (ml): 10 IV fluids (ml): 900 Pathology: other (Breast tissue) Disposition: same day Indications for Procedure: Asymmetry with left breast macromastia following right breast cancer surgery Operative Findings: Fatty breast tissue Description of Procedure: The patient was seen in the preoperative area where markings were placed for a Priest pattern mammoplasty reduction on the left. The patient was then brought to the operative suite. Following induction of anesthesia both breast were prepped and draped in a sterile fashion. The cookie cutter was used to measure the areolar complex on the right and it was noted to be approximately a 50 cookie cutter using this the markings were placed for the inferior pedicle mammoplasty incision. This tissue was de-epithelialized. Following this the markings placed in the preoperative area were utilized to excise a horseshoe shaped tissue from the medial lateral and superior aspect of the breast. The tissue was excised down to the pectoralis muscle. Following this the wound was well irrigated. A #10 CARISSA drain was placed in the lateral aspect of the wound. This was secured using a nylon suture. Surgicel in powder form was placed. The deep tissues were closed using interrupted 3-0 Vicryl suture. This was followed by running 3-0 Vicryl subcutaneous suture. This was followed by a 4-0 Monocryl subcuticular suture. The area of the nipple areolar region was measured using the 50 cookie cutter. A circular incision was made and this was matured. This was secured in place using interrupted 3-0 Vicryl sutures followed by 3-0 Vicryl running subcutaneous suture. A 4-0 Monocryl subcuticular suture was then placed. After all the sutures have been placed 20 cc of 1% lidocaine were injected into the incision. Surgical glue was placed. All instrument and sponge counts were correct at the end of the case. The patient tolerated the procedure in stable condition.
[2024-07-08 11:44] VITALS: TEMP 97
[2024-07-08] MEDS: HYDROmorphone 0.5 MG/0.5 ML SYRINGE IVP PRN (12:38)
[2024-07-08 13:39] VITALS: BP 123/67; PULSE 88; RESP 18
== END 2024-07-08 13:48 | disposition home or self-care (01) ==
LOC: OR 07:02
PROVIDERS: ATTEND Surgery
DX: N65.1 Disproportion of reconstructed breast (principal); Z85.3 Personal history of malignant neoplasm of breast
CPT/HCPCS: 19318; J2250; J0330; J1200; J1644; J1100; J0690; J2405; J2003; J3010; J1171 ×2; J2704; J2371

== ENCOUNTER → 2024-07-17 | Outpatient (CLI) | payer BC ==
[2024-07-17 12:48] VITALS: BP 134/91; PULSE 115; RESP 17; TEMP 97.6
--- NOTE | 2024-07-17 12:58 | P.BCPO ---
Progress Note - Text Progress Note Date: 07/17/24 Patient is status post left breast reduction mammoplasty on 07-08-24. Her pathology was benign. She has a CARISSA drain with mininal drainage. Lungs: Clear Heart: Regular rate and rhythm Incision: Clean and dry CARISSA minimal output Impression: Patient doing well status post left breast reduction mammoplasty DC CARISSA drain Plan: Follow-up in 2 weeks Follow-up medical and radiation oncology CC: Dr. Sabillon Post Op Education - Post Op Education Post Op Education Provided Date: 07/17/24 Path Report - Was patient given path report? Path Report Date Given: 07/17/24
== END ==
LOC: WWCWWP 12:39
PROVIDERS: ATTEND Surgery
DX: Z98.82 Breast implant status (principal); Z88.6 Allergy status to analgesic agent; Z88.8 Allergy status to other drugs, medicaments and biological substances; Z91.011 Allergy to milk products

== ENCOUNTER → 2024-07-31 | Outpatient (CLI) | payer BC ==
[2024-07-31 15:06] VITALS: BP 133/70; PULSE 78; RESP 17; TEMP 98.1
--- NOTE | 2024-07-31 15:41 | P.BCPO ---
Progress Note - Text Progress Note Date: 07/31/24 07/31/24 Patient is status post left breast reduction mammoplasty on 07-08-24. Her pathology was benign. She has a CARISSA drain with mininal drainage on last visit and removed. Lungs: Clear Heart: Regular rate and rhythm Incision: Clean and dry CARISSA removed last visit; slight opening at the trifurcation note Dr. Calixto reviewed: patient on anastrozole; completed radiation 02-29-24; 16 fractions Impression: Patient doing well status post left breast reduction mammoplasty Plan: reinforce trifurcation left breast site Follow-up in 2 weeks Follow-up medical and radiation oncology Following informed consent the area of the trifurcation was prepped using chlorhexidine. This was debrided minimally and reinforced using three 3-0 nylon sutures. The patient tolerated this without difficulty. CC: Dr. Sabillon
== END ==
LOC: WWCWWP 14:37
PROVIDERS: ATTEND Surgery
DX: Z98.890 Other specified postprocedural states (principal)

== ENCOUNTER → 2024-08-15 | Outpatient (CLI) | payer BC ==
[2024-08-15 10:56] VITALS: BP 126/87; PULSE 84; RESP 17; TEMP 97.8
--- NOTE | 2024-08-15 11:12 | P.PN ---
Subjective Progress Note Date: 08/15/24 07/31/24 Patient is status post left breast reduction mammoplasty on 07-08-24. Her pathology was benign. She had reinforcement of the trifurcation of the incision at the lower aspect on her last visit. This is healing well but she does have some minimal residual drainage. Lungs: Clear Heart: Regular rate and rhythm Incision: Clean and dry slight opening at the trifurcation and at this time; prior sutures are no longer helping and ready for removal note Dr. Calixto reviewed: patient on anastrozole; completed radiation 02-29-24; 16 fractions Impression: Patient doing well status post left breast reduction mammoplasty Plan: Sutures at trifurcation, this was done reinforce trifurcation left breast site Follow-up in 2 weeks Follow-up medical and radiation oncology Following informed consent the area of the trifurcation was prepped using chlorhexidine. This was debrided minimally and reinforced using three 3-0 nylon sutures. The patient tolerated this without difficulty. CC: Dr. Sabillon Objective - Vital Signs Vital signs: Vital Signs Temp 97.8 F 08/15/24 10:54 Pulse 84 08/15/24 10:54 Resp 17 08/15/24 10:54 BP 126/87 08/15/24 10:54 Pulse Ox 98 08/15/24 10:54 FiO2 Intake & Output 08/14/24 08/15/24 08/15/24 18:59 06:59 18:59 Weight 102.058 kg
== END ==
LOC: WWCWWP 09:38
PROVIDERS: ATTEND Surgery
DX: Z48.89 Encounter for other specified surgical aftercare (principal); Z98.890 Other specified postprocedural states

== ENCOUNTER → 2024-08-29 | Outpatient (CLI) | payer BC ==
[2024-08-29 09:10] VITALS: BP 136/85; PULSE 95; RESP 18; TEMP 97.7
--- NOTE | 2024-08-29 09:26 | P.PN ---
Subjective Progress Note Date: 08/29/24 Subjective Progress Note Date: 08-29-24 seen post op on : 08/15/24 07/31/24 Patient is status post left breast reduction mammoplasty on 07-08-24. Her pathology was benign. She had reinforcement of the trifurcation of the incision at the lower aspect on her last visit, 08-15-24. This is healing well but she does have some minimal residual drainage. On her last visit sutures were placed at the trifurcation of the lower aspect of the breast, and she was given a cou sre of Keflex for mild erythema of the breast. Lungs: Clear Heart: Regular rate and rhythm Incision: Clean and dry; trifurcation site well-healed note Dr. Calixto: patient on anastrozole; completed radiation 02-29-24; 16 fractions Impression: Patient doing well status post left breast reduction mammoplasty Plan: We will remove sutures at the trifurcation site it is healed well at this time Patient is due for a right breast mammogram October 2024, will follow-up at that time Bilateral mammogram to be back and schedule and on track will be done in June 2025 Continue to follow with medical oncology Continue to follow with radiation oncology CC: Dr. Sabillon Objective - Vital Signs Vital signs: Vital Signs Temp 97.7 F 08/29/24 09:07 Pulse 95 08/29/24 09:07 Resp 18 08/29/24 09:07 BP 136/85 08/29/24 09:07 Pulse Ox 95 08/29/24 09:07 FiO2 Intake & Output 08/28/24 08/29/24 08/29/24 18:59 06:59 18:59 Weight 102.965 kg
== END ==
LOC: WWCWWP 08:44
PROVIDERS: ATTEND Surgery
DX: Z98.86 Personal history of breast implant removal (principal); Z91.011 Allergy to milk products; Z88.8 Allergy status to other drugs, medicaments and biological substances

== ENCOUNTER → 2024-10-28 | Outpatient (CLI) | payer BC ==
--- NOTE | 2024-10-28 13:27 | MM ---
Reason for Exam: Hx of breast cancer, conservation therapy. Last screening mammogram was performed 12 month(s) ago. Patient History: Menarche at age 12. First Full-Term at age 23. Postmenopausal. Patient has history of breast feeding. Breast cancer, right, age 67. Breast cancer, right, age 68. Hormonal Contraceptives for 6 years from age 18 until age 46. 12/25/2023, Lumpectomy on the Right side. 12/25/2023, US breast surgical speciment RT on the Right side. 12/25/2023, Malignant US breast localization RT on the right side. 11/15/2023, Malignant US biopsy breast VAD RT on the right side. 10/08/2018, High risk Core Biopsy on the left side. 08/27/2018, Benign Core Biopsy on the left side. Prior Study Comparison: 11/15/2023 Right MG diagnostic mammo RT wo CAD, [facility]. 12/25/2023 Right MG diagnostic mammo RT wo CAD, [facility]. 06/27/2024 Left MG 3D scr miroslava unilateral w/cad., [facility]. Tissue Density: Right: The breasts are heterogeneously dense, which may obscure small masses. Findings: Analyzed By CAD. Postoperative changes of right-sided lumpectomy. No evidence for recurrent or residual mass. Postoperative changes left breast. No suspicious microcalcifications within either breast. Overall Assessment: Benign, BI-RAD 2 Management: Diagnostic Mammogram of both breasts in 1 year. . Results were given to the patient verbally at the time of exam. Patient should continue monthly self-breast exams. A clinical breast exam by your physician is recommended on an annual basis. This exam should not preclude additional follow-up of suspicious palpable abnormalities. Note on Julissa scores and lifetime risk: 1. A Julissa score greater than 3% is considered moderate risk. If this is the case, consider specialist referral to assess eligibility for a risk reducing agent. 2. If overall lifetime risk for the development of breast cancer is 20% or higher, the patient may qualify for future screening with alternating mammogram and breast MRI. [facility], , 10/28/2024 11:19 AM. Electronically signed and approved by: Jose Luis Perera M.D. Radiologis
== END | disposition home or self-care (01) ==
LOC: RADMAMWWP 10:35
PROVIDERS: ATTEND Surgery
DX: R92.333 Mammographic heterogeneous density, bilateral breasts (principal); Z85.3 Personal history of malignant neoplasm of breast; Z80.3 Family history of malignant neoplasm of breast; Z78.0 Asymptomatic menopausal state; Z92.0 Personal history of contraception
CPT/HCPCS: 77062; 77066